=== PATIENT | female | born 1955 | race Caucasian/White ===

== ENCOUNTER 2020-10-24 14:52 | Outpatient (REF) | payer MEDICARE, MEDICAID, SELFPAY ==
--- NOTE | ~2020-10-24 | XR_ITS ---
EXAMINATION: XR HIP, RIGHT CLINICAL INFORMATION: Pain COMPARISON: None TECHNIQUE: Two views of the right hip and one view of the pelvis. FINDINGS: There is bilateral hip arthritis with joint space narrowing and osteophyte formation. No fracture, dislocation or bone lesion is seen. Bones of the pelvis are unremarkable. There are degenerative changes of the visualized lower lumbar spine. There is a large amount of stool the colon suggestive of constipation. There is a dense calcification in the midline pelvis measuring 2.8 cm probably representing a calcified fibroid. XR/XR hip RT min 2V IMPRESSION: Bilateral hip arthritis. Constipation.
== END 2020-10-24 14:53 | disposition home or self-care (01) ==
LOC: HO.XRAY 14:52
PROVIDERS: PCP Internal Medicine; Visit Provider Internal Medicine
DX: M25.551 Pain in right hip (principal)
CPT/HCPCS: 73502

== ENCOUNTER → 2020-11-14 10:22 | Outpatient (BNVA) | payer MEDICARE, MEDICAID, SELFPAY | PROVIDERS: PCP Internal Medicine; Visit Provider Nurse Practitioner | DX: K21.9 Gastro-esophageal reflux disease without esophagitis (principal); D12.6 Benign neoplasm of colon, unspecified | CPT/HCPCS: Q3014 ==

== ENCOUNTER → 2021-02-22 12:53 | Outpatient (BNVA) | payer MEDICARE, MEDICAID, SELFPAY | PROVIDERS: PCP Internal Medicine | DX: N39.41 Urge incontinence (principal); R35.0 Frequency of micturition; R62.50 Unspecified lack of expected normal physiological development in childhood; F41.9 Anxiety disorder, unspecified | CPT/HCPCS: 99202; 99212 ==

== ENCOUNTER 2021-03-21 08:40 | Outpatient (REF) | payer MEDICARE, MEDICAID, SELFPAY | END 2021-03-21 08:41 | disposition home or self-care (01) | LOC: HO.LAB 08:40 | PROVIDERS: PCP Internal Medicine; Visit Provider Internal Medicine | DX: Z20.822 Contact with and (suspected) exposure to COVID-19 (principal) | CPT/HCPCS: U0003; U0005 ==

== ENCOUNTER → 2021-04-02 11:27 | Outpatient (REF) | payer MEDICARE, MEDICAID, SELFPAY ==
--- NOTE | 2021-04-02 11:36 | ECG_ITS ---
Test Reason : Z01.818 - Encounter for other preprocedural examination Blood Pressure : / mmHG Vent. Rate : 060 BPM Atrial Rate : 060 BPM P-R Int : 252 ms QRS Dur : 088 ms QT Int : 482 ms P-R-T Axes : 095 018 056 degrees QTc Int : 482 ms Atrial-paced rhythm with prolonged AV conduction Abnormal ECG When compared with ECG of 28-NOV-2018 22:27, Electronic atrial pacemaker has replaced Sinus rhythm Vent. rate has increased BY 22 BPM Referred By: Angela Godinez Electronically Signed By:Dash Silva
[2021-04-02 13:17] LABS: MANUAL DIFF FLAG NO
[2021-04-02 13:22] LABS: Basophils Percent Auto 0.6 % (0-2); Eosinophils Absolute Auto 0.1 X10*3/uL (0.0-0.4); Hematocrit 41.7 % (37-47); Hemoglobin 13.2 g/dl (12.0-16.0); Imm Gran Abs Auto 0.03 X10*3/uL (0.00-0.03); Imm Gran Pct Auto 0.4 % (0.0-0.4); Lymphocytes Percent Auto 27.5 % (20-40); Mean Corpuscular HGB Conc 31.7 g/dl (31.0-35.0); Mean Corpuscular Hemoglobin 30.1 pg (27.0-33.0); Mean Platelet Volume 10.8 fL (9.4-12.3); Monocytes Absolute Auto 0.6 X10*3/uL (0.1-1.2); Neutrophils Absolute Auto 4.5 X10*3/uL (2.0-8.3); Neutrophils Percent Auto 62.5 % (45-73); Platelet Count 175 X10*3/uL (160-400); Red Blood Count 4.39 X10*6/uL (4.20-5.50); Red Cell Distribution Width 13.1 % (11.0-16.0); White Blood Count 7.1 X10*3/uL (4.8-10.8)
[2021-04-02 14:06] LABS: Free T4 (Free Thyroxine) 1.01 ng/dL (0.71-1.85); Vitamin D 25-OH Total 32.5 ng/mL (>30)
[2021-04-02 14:07] LABS: Thyroid Stimulating Hormone 2.55 uIU/mL (0.32-4.0)
[2021-04-02 14:08] LABS: Alanine Aminotransferase 17 U/L (0-31); Albumin Level 4.3 g/dL (3.5-5.0); Alkaline Phosphatase 64 U/L (39-117); Anion Gap 11 (12-20); Aspartate Amino Transferase 28 U/L (5-31); Bilirubin Total 0.3 mg/dL (0.0-1.0); Blood Urea Nitrogen 20 mg/dL (9-16); Calcium 9.8 mg/dL (8.4-10.2); Carbon Dioxide 30 mmol/L (22-29); Chloride 103 mmol/L (96-108); Estimated Glomerular Filt Rate > 60; Glucose Random 52 mg/dL (60-115); Potassium 4.6 mmol/L (3.3-5.1); Sodium 139 mmol/L (135-145); Total Protein 7.2 g/dL (6.5-8.0)
[2021-04-02 14:29] LABS: Folate 8.1 ng/mL (> or = 4.0); Vitamin B12 445 pg/mL (200-900)
== END ==
LOC: HO.CARD 11:27
PROVIDERS: PCP Internal Medicine; Visit Provider Internal Medicine
DX: Z01.818 Encounter for other preprocedural examination (principal); Z20.822 Contact with and (suspected) exposure to COVID-19; I95.1 Orthostatic hypotension
CPT/HCPCS: 36415; 80053; 82306; 82607; 82746; 84439; 84443; 85025; 93005; U0003; U0005

== ENCOUNTER 2021-05-04 07:34 | Day surgery (SDC) | payer MEDICARE, MEDICAID, SELFPAY ==
[2021-04-30 10:29] VITALS: BMI 32.1
--- NOTE | 2021-05-03 12:03 | P.CONAN_ITS ---
Documented by User: Jody Leonard NP 05/03/21 12:06 HPI - Anesthesia Eval Consult details Narrative: 65yo F for Colonoscopy Medically cleared Pacer in situ - 2019 talia [facility] Active Problems Active Problems: All Active Problems (Updated 04/30/21 @ 10:31 by Radha Laguerre, JACLNY) Breast mass, right (Acute) Orthostasis (Acute) Cataract, left eye (Acute) Hip pain, right (Acute) Tubular adenoma of colon (Acute) Eye disorder (Acute) Increased frequency of urination (Acute) Incontinence (Acute) Urge incontinence (Acute) Preop exam for internal medicine (Acute) GERD (gastroesophageal reflux disease) (Acute) Impulse control disorder (Acute) Obesity (BMI 35.0-39.9 without comorbidity) (Acute) Past Medical History Medical History Amblyopia of left eye Anxiety Cholelithiasis COVID-19 vaccine series completed COVID-19 virus infection Fibroids GERD (gastroesophageal reflux disease) Impulse control disorder Obesity (BMI 35.0-39.9 without comorbidity) Preop exam for internal medicine Retinal detachment of left eye due to tear of retina Seizure disorder Family History Family History Father Cancer Mother CAD (coronary artery disease) Sister In good health Brother In good health Surgical History Surgical History History of cataract surgery History of pacemaker S/P breast biopsy, right Social History Social History Household Members Other:: HALFWAY Housing: Other Housing Other:: Senior Care Alcohol intake: never Patient Tobacco Use Status: Never used Tobacco e-Cigarette/Vaping Use: Never Used Second Hand Smoke Exposure: No Advance Directives: Yes Advance Directives on File: Yes Advance Directives Date on File: 05/04/21 service: No Current occupational status: disabled Meds Allergies Allergy/AdvReac Type Severity Reaction Status Date / Time No Known Allergies Allergy Verified 04/02/21 10:24 [No Known Allergies*] Home Medications Medication Instructions Recorded Confirmed Last Taken Type acetaminophen 325 mg tablet 650 mg PO Q6H PRN 07/31/20 12/18/20 Unknown History (Tylenol) bacitracin 500 unit/gram topical 1 appl TOPICAL DAILY 07/31/20 12/18/20 Unknown History ointment benztropine 0.5 mg tablet 0.5 mg PO DAILY 07/31/20 12/18/20 Unknown History ibuprofen 200 mg capsule 200 mg PO Q6H PRN 07/31/20 12/18/20 Unknown History midodrine 10 mg tablet 10 mg PO BID tab 07/31/20 12/18/20 Unknown History risperidone 1 mg tablet 1 mg PO BEDTIME 12/06/20 12/18/20 Unknown History atropine 1 % eye drops 1 drp OPHTHALMIC (EYE) ml 02/22/21 Unknown History moxifloxacin 0.5 % eye drops 1 drp OPHTHALMIC (EYE) ml 02/22/21 Unknown History omeprazole 20 mg capsule,delayed 20 mg PO DAILY 02/22/21 Unknown History release Exam Exam Date and Time: May 03, 2021 1203 Height,Weight and Vital Signs: Height 5 ft 6 in Weight 90.265 kg Pertinent Lab Results Pertinent Lab Results: Laboratory Tests 04/02/21 04/02/21 11:40 11:40 WBC 7.1 Hgb 13.2 Hct 41.7 Plt Count 175 Sodium 139 Potassium 4.6 Chloride 103 Carbon Dioxide 30 H BUN 20 H Creatinine 0.89 Narrative Narrative: EKG 04/2021 Vent. Rate : 060 BPM ? ? Atrial Rate : 060 BPM ?? P-R Int : 252 ms? QRS Dur : 088 ms ? ? QT Int : 482 ms ? ? ? P-R-T Axes : 095 018 056 degrees ?? QTc Int : 482 ms ? Atrial-paced rhythm with prolonged AV conduction Abnormal ECG When compared with ECG of 28-NOV-2018 22:27, Electronic atrial pacemaker has replaced Sinus rhythm Vent. rate has increased BY? 22 BPM Assessment and Plan Assessment Anesthesia Assessment: Chart Reviewed Documented by User: Analia Perez MD 05/04/21 08:13 [facility] Past Medical History Medical History Amblyopia of left eye Anxiety Cholelithiasis COVID-19 vaccine series completed COVID-19 virus infection Fibroids GERD (gastroesophageal reflux disease) Impulse control disorder Obesity (BMI 35.0-39.9 without comorbidity) Preop exam for internal medicine Retinal detachment of left eye due to tear of retina Seizure disorder Family History Family History Father Cancer Mother CAD (coronary artery disease) Sister In good health Brother In good health Surgical History Surgical History History of cataract surgery History of pacemaker S/P breast biopsy, right Social History Social History Household Members Other:: [employer] Housing: Other Housing Other:: Senior Care Alcohol intake: never Patient Tobacco Use Status: Never used Tobacco e-Cigarette/Vaping Use: Never Used Second Hand Smoke Exposure: No Advance Directives: Yes Advance Directives on File: Yes Advance Directives Date on File: 05/04/21 service: No Current occupational status: disabled Meds Allergies Allergy/AdvReac Type Severity Reaction Status Date / Time No Known Allergies Allergy Verified 04/02/21 10:24 [No Known Allergies*] Home Medications Medication Instructions Recorded Confirmed Last Taken Type acetaminophen 325 mg tablet 650 mg PO Q6H PRN 07/31/20 12/18/20 Unknown History (Tylenol) bacitracin 500 unit/gram topical 1 appl TOPICAL DAILY 07/31/20 12/18/20 Unknown History ointment benztropine 0.5 mg tablet 0.5 mg PO DAILY 07/31/20 12/18/20 Unknown History ibuprofen 200 mg capsule 200 mg PO Q6H PRN 07/31/20 12/18/20 Unknown History midodrine 10 mg tablet 10 mg PO BID tab 07/31/20 12/18/20 Unknown History risperidone 1 mg tablet 1 mg PO BEDTIME 12/06/20 12/18/20 Unknown History atropine 1 % eye drops 1 drp OPHTHALMIC (EYE) ml 02/22/21 Unknown History moxifloxacin 0.5 % eye drops 1 drp OPHTHALMIC (EYE) ml 02/22/21 Unknown History omeprazole 20 mg capsule,delayed 20 mg PO DAILY 02/22/21 Unknown History release Exam Airway Mallampati Class: III TM Dist: >3cm Neck ROM: Full
[2021-05-04 08:09] VITALS: BP 134/67; PULSE 60; RESP 18; TEMP 37.2; O2SAT 98
--- NOTE | 2021-05-04 08:30 | P.HPSUR_ITS ---
Pre-Procedural Eval Section A Date of Service: 05/04/21 The patient is an INPATIENT: No The History & Physical has been completed within 30 days and I have reviewed it.: No Section B Chief Complaint: Colon cancer screening, history of colon polyps Details of Present Illness: Colon cancer screening, history of colon polyps Relevant Family History (Specify if Yes): No Relevant Social History: None Present Medications: see Short Stay Collaborative assessment Medical History: Significant History (Amblyopia of left eye Anxiety Alejandra lithiasis Fibroids GERD (gastroesophageal reflux disease) Impulse control disorder Obesity (BMI 35.0-39.9 without comorbidity) Retinal detachment of left eye due to tear of retina Seizure disorder) History of Previous Operations: Relevant previous surgery/procedure and date(s) (History of cataract surgery History of pacemaker S/P breast biopsy, right) Allergies: Allergies Allergy/AdvReac Type Severity Reaction Status Date / Time No Known Allergies Allergy Verified 04/02/21 10:24 [No Known Allergies*] Review of Systems Sugical H&P ROS: Negative: Constitution, Cardiovascular, Respiratory and Gastrointestinal Exam Surgical H&P Exam: Normal: Heart, Normal: Lungs, Normal: Extremities and Normal: Abdomen Plan Diagnosis/Plan: Unchanged I have reviewed the history and physical and performed a pertinent physical examination on my patient. No changes have occurred unless specified.
[2021-05-04] MEDS: Lactated Ringers 1,000 ML 100 ML IVCONT (08:36)
--- NOTE | 2021-05-04 08:36 | P.OP_ITS ---
Operative Note Operative Note Date of Service: 05/04/21 Narrative: Pre-op diagnosis:?Colon cancer screening, history of colon polyps Post-op diagnosis:?other (Colon polyps, diverticulosis) Procedure:? COLONOSCOPY TILL CECUM WITH BIOPSY, SNARE POLYPECTOMY AND SUBMUCOSAL INJECTION Consent: Indications for the procedure and potential complications of bleeding, perforation, reaction to medications and missed diagnosis were discussed with the patient's brother and HCP, Miguel Stewart ([phone]) over the telephone and informed verbal consent was obtained. Instrument: Olympus CF HQ 190 L variable stiffness adult colonoscope Monitoring: Vital signs and clinical assessment, intermittent blood pressure monitoring, continuous EKG monitoring, Pulse oximetry and Carbon Dioxide monitoring were done throughout the procedure. Colon withdrawl time was 28 minutes. Procedure: The patient was placed in the left lateral decubitis position and pre-procedure medications were administered. After a digital rectal examination of the ano-rectum, the video colonoscope was inserted into the rectum and advanced through the colon to the cecum. The colonoscope was slowly withdrawn in a retrograde panoramic fashion and the colon mucosa was carefully examined including a retroflexed view of the rectum. Findings and interventions are described below. Procedure Difficulty:? Colon was long and tortuous and there was some loop formation. ? LLQ pressure applied to intubate the transverse colon/cecum Findings: Terminal Ileum: Not evaluated Cecum:? A 1.5 cms flat polyp raised with 2 cc of Orise solution (submucosal injection) and removed with a hot snare.? ? Polyp versus fold at the lip of ICV raised with Orise and biopsies were obtained. Ascending Colon:? Normal Transverse Colon:? Normal Descending Colon:? Moderate diverticulosis Sigmoid Colon:? Moderate diverticulosis Rectum:? Normal Ano-rectum:? Normal Colon preparation: Good after some irrigation Impression and Post Procedure Diagnosis: Colonoscopy Findings: One polyp removed Moderate diverticulosis seen in the left colon Plan: Await pathology results Patient has an appointment on 05/17/21 in the GI Clinic with? Kaykay Aguayo NP . Repeat Colonoscopy interval based on path results - in 3 years if polyps are adenomatous and 10 years if polyps are hyperplastic. Above findings were reviewed with the patient and colon polyps and diverticulosis handouts were given in the discharge area Surgeon:?Devan Waters MD Anesthesia:?MAC (Christy Guerra CRNA) Was an Bacteriology Professor used for this Procedure?:?No Bacteriology Professor:?Mohamud Johnson Estimated blood loss (mL):?0 Pathology:?other (A- CECAL POLYP? O-RISE USED? B- ILLEOCECAL VALVE BX. ? POLYP VS FOLD ? O-RISE USED) Condition:?stable Disposition:?PACU
--- NOTE | 2021-05-04 08:40 | PC.NURSE ---
pt to sss from [facility] accompanied by [facility] care worker. pt confused on date time. knows name and birthday. consents obtained by brother berna mejia . verified pt is a full code. care worker reports pt fell in our parking lot. both knees srapped. denies loc. did not hit head. pt ana. paste plant supervisor of [facility] informed of fall in parking lot. . lana paste plant supervisor from [facility] seen pt at bedsidebefore going in
[2021-05-04 09:50] VITALS: BP 104/57; PULSE 60; RESP 16; TEMP 36.1; O2SAT 98
[2021-05-04 10:05] VITALS: BP 121/66; PULSE 60; RESP 16; O2SAT 100
[2021-05-04 10:20] VITALS: BP 128/74; PULSE 60; RESP 18; TEMP 36.3; O2SAT 100
--- NOTE | 2021-05-04 11:21 | PC.NURSE ---
agronomy supervisor Lacey at bedside, discharge instructions given to Lacey who verbalized understanding of DC plan for pt. Pt discharged back to intermediate from PACU via WC escorted by PACU staff to the [place].
== END 2021-05-04 11:20 | disposition home or self-care (01) ==
PROVIDERS: PCP Internal Medicine; Visit Provider Internal Medicine Gastroenterology
PROC: 0DJD8ZZ Inspection of Lower Intestinal Tract, Via Natural or Artificial Opening Endoscopic (ICD-10-PCS; CPT 45378; principal; 2021-05-04 08:30)
DX: Z12.11 Encounter for screening for malignant neoplasm of colon (principal); Z86.010 Personal history of colon polyps; D12.0 Benign neoplasm of cecum; K57.30 Diverticulosis of large intestine without perforation or abscess without bleeding; K63.5 Polyp of colon; K21.9 Gastro-esophageal reflux disease without esophagitis; I10 Essential (primary) hypertension; G40.909 Epilepsy, unspecified, not intractable, without status epilepticus; R00.1 Bradycardia, unspecified; F63.9 Impulse disorder, unspecified; E66.9 Obesity, unspecified; Z79.899 Other long term (current) drug therapy
CPT/HCPCS: 45385; 45380; 45381; 88305

== ENCOUNTER → 2021-05-21 16:03 | Outpatient (BNVA) | payer MEDICARE, MEDICAID, SELFPAY | PROVIDERS: PCP Internal Medicine; Visit Provider Nurse Practitioner | DX: K21.9 Gastro-esophageal reflux disease without esophagitis (principal); D12.6 Benign neoplasm of colon, unspecified | CPT/HCPCS: 99212 ==

== ENCOUNTER → 2021-05-29 13:30 | Outpatient (BNVA) | payer MEDICARE, MEDICAID, SELFPAY | PROVIDERS: PCP Internal Medicine | DX: R35.0 Frequency of micturition (principal); R32 Unspecified urinary incontinence | CPT/HCPCS: 51798; 99212 ==

== ENCOUNTER 2021-12-26 09:32 | Outpatient (REF) | payer MEDICARE, MEDICAID, SELFPAY ==
[2021-12-26 11:33] LABS: MANUAL DIFF FLAG NO
[2021-12-26 11:45] LABS: Basophils Percent Auto 0.5 % (0-2); Eosinophils Absolute Auto 0.1 X10*3/uL (0.0-0.4); Eosinophils Percent Auto 0.9 % (0-4); Hematocrit 41.8 % (37.0-47.0); Hemoglobin 13.1 g/dl (12.0-16.0); Imm Gran Abs Auto 0.03 X10*3/uL (0.00-0.03); Imm Gran Pct Auto 0.4 % (0.0-0.4); Lymphocytes Absolute Auto 2.3 X10*3/uL (1.2-4.9); Lymphocytes Percent Auto 27.9 % (20-40); Mean Corpuscular HGB Conc 31.3 g/dl (31.0-35.0); Mean Corpuscular Hemoglobin 29.9 pg (27.0-33.0); Mean Corpuscular Volume 95.4 fL (80.0-98.0); Mean Platelet Volume 10.4 fL (9.4-12.3); Monocytes Absolute Auto 0.6 X10*3/uL (0.1-1.2); Monocytes Percent Auto 7.3 % (2-11); Neutrophils Absolute Auto 5.2 x10*3/uL (2.0-8.3); Platelet Count 192 X10*3/uL (160-400); Red Blood Count 4.38 X10*6/uL (4.20-5.50); Red Cell Distribution Width 12.9 % (11.0-16.0); White Blood Count 8.2 X10*3/uL (4.8-10.8)
[2021-12-26 12:14] LABS: Free T4 (Free Thyroxine) 0.96 ng/dL (0.71-1.85); Thyroid Stimulating Hormone 4.17 uIU/mL (0.32-4.0); Vitamin D 25-OH Total 30.1 ng/mL (>30)
[2021-12-26 12:18] LABS: Alanine Aminotransferase 16 U/L (0-31); Albumin Level 3.9 g/dL (3.5-5.0); Alkaline Phosphatase 53 U/L (39-117); Anion Gap 13 (12-20); Aspartate Amino Transferase 27 U/L (5-31); Bilirubin Total 0.4 mg/dL (0.0-1.0); Blood Urea Nitrogen 21 mg/dL (9-16); Calcium 9.9 mg/dL (8.4-10.2); Carbon Dioxide 28 mmol/L (22-29); Chloride 103 mmol/L (96-108); Cholesterol 202 mg/dL; Estimated Glomerular Filt Rate 58; Glucose Random 74 mg/dL (60-115); HBc Num1 0.13 S/CO (0.00-0.79); HBsAGNum1 0.22 S/CO (0.00-0.99); HDL Cholesterol 51 mg/dL; Hepatitis B Core Antibody Nonreactive (Nonreactive); Hepatitis B Surface Antigen Negative (Negative); LDL Cholesterol Calculated 127 mg/dl; Potassium 4.3 mmol/L (3.3-5.1); Sodium 140 mmol/L (135-145); Triglycerides 122 mg/dL; ~HepC Num1 0.08 S/CO (0.00-0.79); ~Hepatitis B Surface Antibody NONREACTIVE (Nonreactive); ~Hepatitis C Antibody Nonreactive (Nonreactive)
[2021-12-26 13:18] LABS: Folate 8.4 ng/mL (> or = 4.0); Vitamin B12 364 pg/mL (200-900)
[2021-12-26 14:25] LABS: Appearance Urine CLEAR; Color Urine YELLOW; Glucose Urine UA NEG (NEG); Leukocyte Esterase Urine NEG (NEG); Nitrite Urine NEG (NEG); Specific Gravity - Urine 1.015 (1.005-1.025); Urine Blood NEG (NEG); Urine Ketones NEG (NEG); Urine Protein NEG (NEG-TRACE)
[2021-12-26 14:53] LABS: Renal Epithelial Cells Urine TRACE /LPF; Squamous Epithelial Cell Urine 1+ /LPF
[2021-12-26 14:54] LABS: RBC Urine 0-2 /HPF (0); WBC Urine 0-2 /HPF (0-4)
[2021-12-28 19:16] LABS: TS Negative Control Passed; TS Panel A 0; TS Panel B 0; TS Positive Control Passed; TSpotTB Negative (Negative)
== END 2021-12-26 09:33 | disposition home or self-care (01) ==
LOC: HO.HMGCLDS 09:32
PROVIDERS: PCP Internal Medicine; Visit Provider Internal Medicine
DX: Z00.00 Encounter for general adult medical examination without abnormal findings (principal); E78.00 Pure hypercholesterolemia, unspecified; R79.89 Other specified abnormal findings of blood chemistry; E66.9 Obesity, unspecified; I95.1 Orthostatic hypotension
CPT/HCPCS: 36415; 80053; 80061; 81001; 82306; 82607; 82746; 84439; 84443; 85025; 86481; 86704; 86706; 86803; 87340

== ENCOUNTER 2022-02-14 09:18 | Outpatient (REF) | payer MEDICARE, MEDICAID, SELFPAY ==
[2022-02-14 10:48] LABS: Free T4 (Free Thyroxine) 0.98 ng/dL (0.71-1.85); Thyroid Stimulating Hormone 3.14 uIU/mL (0.32-4.0)
== END 2022-02-14 09:19 | disposition home or self-care (01) ==
LOC: HO.LAB 09:18
PROVIDERS: PCP Internal Medicine; Visit Provider Internal Medicine
DX: R94.6 Abnormal results of thyroid function studies (principal)
CPT/HCPCS: 36415; 84439; 84443

== ENCOUNTER → 2022-04-09 08:57 | Outpatient (BNVA) | payer MEDICARE, MEDICAID, SELFPAY | PROVIDERS: PCP Internal Medicine; Visit Provider Psychiatry & Neurology Neurology | DX: R41.89 Other symptoms and signs involving cognitive functions and awareness (principal); R46.89 Other symptoms and signs involving appearance and behavior; R26.81 Unsteadiness on feet; R41.3 Other amnesia; G40.909 Epilepsy, unspecified, not intractable, without status epilepticus; Z79.899 Other long term (current) drug therapy | CPT/HCPCS: 99202 ==

== ENCOUNTER 2022-04-25 09:38 | Outpatient (REF) | payer MEDICARE, MEDICAID, SELFPAY ==
--- NOTE | ~2022-04-25 | CT_ITS ---
EXAMINATION: CT HEAD WITHOUT CONTRAST CLINICAL INFORMATION: Abnormal cognitive functions and awareness. COMPARISON: None TECHNIQUE: Contiguous axial imaging was performed from the skull base to vertex without intravenous administration of contrast. This CT examination was performed using dose optimization techniques as appropriate, variously including the following: *Automated exposure control. *Adjustment of mA and/or kV according to patient size (this includes techniques or standardized protocols for targeted exams where dose is matched to indication/reason for exam; i.e. extremities or head). *Use of iterative reconstruction technique. DLP: 914 mGy-cm FINDINGS: There is no acute intra-axial, extra-axial bleed, masses, collection or midline shift. The [id number] matter differentiation is maintained normal. There are lacunar infarctions in both basal ganglia slightly larger on the right. There is diffuse periventrical hypodensities in both cerebral hemispheres. Moderate elevation of lateral ventricles and mild prominence of cortical sulci is noted. Bone windows reveal no calvarial abnormality. Bilateral paranasal sinuses and mastoid air cells are well aerated with mild mucoperiosteal thickening floor of left maxillary sinus. There is a hyperdense small left eyeball likely nonfunctioning with mild proptosis. CT/CT head/brain wo con IMPRESSION: 1. No acute intracranial process seen. 2. There is bibasal ganglia lacunar infarct slightly greater on the right side. Mild cerebral volume loss with chronic small vessel ischemic changes.
== END 2022-04-25 09:39 | disposition home or self-care (01) ==
LOC: HO.CT 09:38
PROVIDERS: PCP Internal Medicine; Visit Provider Psychiatry & Neurology Neurology
DX: R26.81 Unsteadiness on feet (principal); R41.89 Other symptoms and signs involving cognitive functions and awareness; R46.89 Other symptoms and signs involving appearance and behavior
CPT/HCPCS: 70450

== ENCOUNTER 2022-07-04 09:21 | Outpatient (REF) | payer MEDICARE, MEDICAID, SELFPAY ==
--- NOTE | ~2022-07-04 | MM_ITS ---
EXAMINATION: BONE DENSITOMETRY CLINICAL INDICATION: Age-related osteoporosis without current pathological fracture. COMPARISON: Previous BD dated 01/11/2014 and baseline BD dated 07/30/2007. TECHNIQUE: Using a Active[employer]k DXA System (software version: 13.1) manufactured by [employer], dual-energy x-ray absorptiometry was performed of the lumbar spine and left hip. The images are of good technical quality. Summary results are attached. FINDINGS: AP SPINE L2-L4 (L3) (excluding L1 and L3): The data of L1-L4 has been changed to exclude the L1 and L3 vertebral bodies, because degenerative changes at these levels may cause overestimation of lumbar spine density. Current: BMD 1.275 g/cm2, Z-score 1.4, T-score 0.6, normal, 1.4% increase from previous, 1.5% increase from baseline (<5% change is not significant). Prior: BMD 1.257 g/cm2. Baseline: BMD 1.256 g/cm2. LEFT FEMUR, NECK: Current: BMD 0.776 g/cm2, Z-score -0.9, T-score -1.9, osteopenia. Prior: BMD 0.998 g/cm2. Baseline: BMD 0.934 g/cm2. LEFT FEMUR, TOTAL: Current: BMD 0.721 g/cm2, Z-score -1.6, T-score -2.3, osteopenia, 25.1% decrease from previous, 26.5% decrease from baseline (<5% change is not significant). Prior: BMD 0.962 g/cm2. Baseline: BMD 0.981 g/cm2. IDENTIFIED RISK FACTORS: Dementia, menopause. HISTORY OF FRACTURE: None listed. MEDICATIONS: Calcium supplements or multivitamin, vitamin D. MM/XR DEXA axial skeleton IMPRESSION: 1. DIAGNOSIS: Osteopenia based on the lowest T-score value of -2.3 in the total femur applying World Health Organization criteria. 2. 10-YEAR FRACTURE RISK PREDICTION, FRAX: Major osteoporotic fracture (clinical spine, forearm, hip or shoulder) 10.2%. Hip fracture 1.5%. 3. Treatment Recommendations: NOF guidelines recommend consideration for treatment in postmenopausal women and men age 50 and older presenting with the following: -A hip or vertebral (clinical or morphometric) fracture. -T-score less than or equal to -2.5 at the femoral neck or spine after appropriate evaluation to exclude secondary causes. -Low bone mass at the hip or spine and a 10-year fracture probability by FRAX of greater than or equal to 3% for hip fracture or greater than or equal to 20% for major osteoporotic fracture based on the [place] adapted WHO algorithm. 4. Other Recommendations: All treatment decisions require clinical judgment and consideration of individual patient factors, including patient preferences, comorbidities, previous drug use, risk factors not captured in the FRAX model (e.g. frailty, falls, vitamin D deficiency, increased bone turnover, interval significant decline in bone density) and possible under or overestimation of fracture risk by FRAX. Additional medical evaluation for secondary cause of low bone mineral density may be appropriate. FUTURE SCAN RECOMMENDATION: People with diagnosed cases of osteoporosis or at high risk for fracture should have regular bone mineral density tests. For patients eligible for Medicare, routine testing is allowed once every 2 years. The testing frequency can be increased to one year for patients who have rapidly progressing disease, those who are receiving or discontinuing medical therapy to restore bone mass, or have additional risk factors.
== END 2022-07-04 09:22 | disposition home or self-care (01) ==
LOC: HO.MAMMO 09:21
PROVIDERS: PCP Internal Medicine; Visit Provider Internal Medicine
DX: M81.0 Age-related osteoporosis without current pathological fracture (principal)
CPT/HCPCS: 77080

== ENCOUNTER → 2022-07-09 09:43 | Outpatient (BNVA) | payer MEDICARE, MEDICAID, SELFPAY | PROVIDERS: PCP Internal Medicine; Visit Provider Psychiatry & Neurology Neurology | DX: R41.89 Other symptoms and signs involving cognitive functions and awareness (principal); R46.89 Other symptoms and signs involving appearance and behavior; R26.81 Unsteadiness on feet | CPT/HCPCS: 99212 ==

== ENCOUNTER 2022-07-23 10:37 | Outpatient (REF) | payer MEDICARE, MEDICAID, SELFPAY ==
--- NOTE | ~2022-07-23 | US_ITS ---
EXAMINATION: US EXTRACRANIAL CAROTID DUPLEX, BILATERAL CLINICAL INFORMATION: Stroke, cerebral infarction COMPARISON: None TECHNIQUE: Real-time ultrasound and Doppler techniques (integrating B-mode 2-D vascular images, Doppler spectral analysis and color-flow Doppler imaging) were utilized to interrogate the extracranial carotid arteries, the vertebral arteries and proximal subclavian arteries bilaterally. The degree of stenosis is determined by criteria similar to NASCET. FINDINGS: Right Side: 1. There is mild atherosclerotic plaque seen in the bifurcation/proximal ICA region. 2. The common carotid artery PSV proximally is 75 cm/s and distally 63 cm/s. 3. The proximal internal carotid artery velocities are 89 cm/s systolic and 10 cm/s diastolic. 4. The proximal external carotid artery PSV is 56 cm/s. 5. The vertebral artery shows antegrade flow. 6. The subclavian artery waveforms are normal. Left Side: 1. There is mild atherosclerotic plaque seen in the bifurcation/proximal ICA region. 2. The common carotid artery PSV proximally is 85 cm/s and distally 81 cm/s. 3. The proximal internal carotid artery velocities are 65 cm/s systolic and 17 cm/s diastolic. 4. The proximal external carotid artery PSV is 152 cm/s. 5. The vertebral artery shows antegrade flow. 6. The subclavian artery waveforms are normal. US/US carotid duplex BI IMPRESSION: 1. RIGHT: Minimal, non-hemodynamically significant stenosis of the proximal right internal carotid artery corresponding to a 0-49% stenosis by velocity criteria. 2. LEFT: Minimal, non-hemodynamically significant stenosis of the proximal left internal carotid artery corresponding to a 0-49% stenosis by velocity criteria.
== END 2022-07-23 10:38 | disposition home or self-care (01) ==
LOC: HO.US 10:37
PROVIDERS: Visit Provider Internal Medicine
DX: Z86.73 Personal history of transient ischemic attack (TIA), and cerebral infarction without residual deficits (principal)
CPT/HCPCS: 93880

== ENCOUNTER → 2022-09-17 09:09 | Outpatient (BNVA) | payer MEDICARE, MEDICAID, SELFPAY | PROVIDERS: PCP Internal Medicine; Visit Provider Nurse Practitioner Family | DX: N39.41 Urge incontinence (principal); R33.9 Retention of urine, unspecified | CPT/HCPCS: 51798; 99212 ==

== ENCOUNTER → 2022-12-17 09:43 | Outpatient (BNVA) | payer MEDICARE, MEDICAID, SELFPAY | PROVIDERS: PCP Internal Medicine; Visit Provider Nurse Practitioner Family | DX: R33.9 Retention of urine, unspecified (principal); N39.41 Urge incontinence | CPT/HCPCS: 51798; 99212 ==

== ENCOUNTER → 2023-01-07 09:24 | Outpatient (BNVA) | payer MEDICARE, MEDICAID, SELFPAY | PROVIDERS: PCP Internal Medicine; Visit Provider Psychiatry & Neurology Neurology | DX: R41.89 Other symptoms and signs involving cognitive functions and awareness (principal); R46.89 Other symptoms and signs involving appearance and behavior; R26.81 Unsteadiness on feet | CPT/HCPCS: 99212 ==

== ENCOUNTER 2023-04-15 10:11 | Outpatient (AMB) | payer MEDICARE, MEDICAID, SELFPAY ==
[2023-04-15 10:17] VITALS: BP 124/78; PULSE 68; O2SAT 97; BMI 37.9
--- NOTE | 2023-04-15 10:18 | AM.OFFVISMDC ---
Intake Vital Signs 04/15/23 10:17 Height 5 ft 6 in Weight 235 lb BMI 37.9 BP 124/78 Blood Pressure Location Lt brachial Position Sitting Pulse 68 Pulse Source Pulse Oximeter Pulse Oximetry (%) 97 Oxygen Delivery Method Room Air Intake Visit Reasons: AWV Allergies No Known Allergies [No Known Allergies*] Allergy (Verified 04/15/23 10:18) Medication List - Last Reconciled 04/15/23 by Angela Godinez MD acetaminophen (Tylenol) 650 mg (2 x 325 mg) PO Q6H PRN aspirin (Adult Low Dose Aspirin) 81 mg PO DAILY atropine 1% 1 drp ophthalmic (eye) bacitracin 1 appl topical DAILY benztropine 0.5 mg PO DAILY calcium carbonate-vitamin D3 600 mg-10 mcg (400 unit) 1 tab PO BID diaper,brief,adult,disposable (Briefs, Adult-Extra Large) As directed docusate sodium 100 mg PO QAM 90 days fluoxetine (Prozac) 80 mg (2 x 40 mg) PO DAILY guaifenesin ER 600 mg PO Q12H PRN latanoprost 0.005% 0 drps ophthalmic (eye) memantine (Namenda) 10 mg PO BID midodrine 10 mg orally; do not give last dose of day after 6PM or within 4 hrs of bedtime 10 MG in the AM and 5 MG in the PM midodrine 5 mg PO DAILY mirabegron ER (Myrbetriq) 25 mg PO DAILY 90 days nystatin 1 appl topical TID nystatin (Nyamyc) 1 appl topical TID omeprazole 20 mg PO DAILY pyridoxine (vitamin B6) 50 mg PO QAM risperidone 1 mg PO BEDTIME [Transport wheelchair As directed] [Walker with seat As directed] HPI AWV HPI Details 67-year-old obese female with mental and behavioral problem history of CVA GERD impulse control disorder and incomplete bladder emptying coming in for annual well visit. Patient was last seen in December 2022. Colonoscopy is up-to-date May 2021 mammogram due bone density up-to-date. Review of the notes has seen Neurology on Namenda question of dementia on Namenda 10 mg twice a day PFSH Medical History Amblyopia of left eye Anxiety Breast mass, right Cholelithiasis COVID-19 vaccine series completed COVID-19 virus infection Fibroids GERD (gastroesophageal reflux disease) Impulse control disorder Incontinence Increased frequency of urination Intellectual delay Obesity (BMI 35.0-39.9 without comorbidity) Preop exam for internal medicine Rash Retinal detachment of left eye due to tear of retina Screening for osteoporosis Seizure disorder TSH elevation Surgical History History of cataract surgery History of pacemaker Hx of colonoscopy S/P breast biopsy, right Family History Father Cancer Mother CAD (coronary artery disease) Sister In good health Brother In good health Social History Household Members Other:: SENIOR CARE Housing: Other Housing Other:: Longterm Alcohol intake: never Patient Tobacco Use Status: Never used Tobacco e-Cigarette/Vaping Use: Never Used Second Hand Smoke Exposure: No Advance Directives Date on File: 05/04/21 service: No Current occupational status: disabled Cognitive needs: Yes Hearing needs: No Vision needs: Yes Questionnaire Medicare Wellness Checkup [age] 65-68 What gender do you identify with?: female During the past 4 weeks, how much have you been bothered by emotional problems such as feeling anxious, depressed, irritable, sad or downhearted, and blue?: moderately During the past 4 weeks, has your physical & emotional health limited your social activities with family, friends, neighbors, or groups?: slightly During the past 4 weeks, how much bodily pain have you generally had?: no pain During the past 4 weeks, was someone available to help you if you needed & wanted help?: yes, as much as I wanted During the past 4 weeks, what was the hardest physical activity you could do for at least 2 minutes?: very light Can you get to places out of walking distance without help? (For eg., can you travel alone on buses, taxis or drive your car?): No Can you go shopping for groceries or clothes without someone's help?: No Can you prepare your own meals?: No Can you do your housework without help?: No Because of any health problems, do you need the help of another person with your personal care needs such as eating, bathing, dressing or getting around the house?: Yes Can you handle your own money without help?: No During the past 4 weeks, how would you rate your health in general?: good During the past 4 weeks how have things been going for you?: good & bad parts about equal Are you having difficulties driving your car?: not applicable, I don't use a car Do you always fasten your seat belt when you are in a car?: yes, usually During past 4 weeks, have you been bothered by the following: never: Falling or dizzy when standing up, Sexual problems?, Trouble eating well?, Teeth or denture problems? and Problems using the telephone? and sometimes: Tiredness or fatigue? Have you fallen 2 or more times in the past year?: No Are you afraid of falling?: No Are you a smoker?: no During the past 4 weeks, how many drinks of wine, beer, or other alcoholic beverages did you have?: no alcohol at all Do you exercise for about 20 minutes 3 or more times a week?: no, I usually do not exercise this much Have you been given information to help with the following?: yes: Keeping track of your medications? and no: Hazards in your house that might hurt you? How often do you have trouble taking medicines the way you have been told to take them?: I always take medicine as prescribed How confident are you that you can control & manage most of your health problems?: somewhat confident What is your race?: White PHQ-9 Over the last 2 weeks, how often have you been bothered by any of the following problems? 1. Little interest or pleasure in doing things: not at all 2. Feeling down, depressed, or hopeless: not at all 3. Trouble falling or staying asleep, or sleeping too much: not at all 4. Feeling tired or having little energy: not at all 5. Poor appetite or overeating: several days 6. Feeling bad about yourself - or that you are a failure or have let yourself or your family down: not at all 7. Trouble concentrating on things, such as reading the newspaper or watching television: several days 8. Moving or speaking so slowly that other people could have noticed. Or the opposite - being so fidgety or restless that you have been moving around a lot more than usual: not at all 9. Thoughts that you would be better off or of hurting yourself in some way: not at all Total score: 2 Source: Developed by Drs. Tung Zavala, Doroteo Harris and colleagues, with an educational dagoberto from [employer]. Thrive Questionnaire Date Thrive assessed: 12/31/22 MARK-7 AMB Questionnaire MARK-7 Date MARK - 7 assessed: 09/20/22 Source: Developed by Drs. Tung Zavala, Yamilka Posadas, Doroteo Myers and colleagues, with an educational dagoberto from [employer]. Review of Systems Const Denies poor appetite and Denies weakness Eyes Denies no additional complaints ENT Reports Normal hearing present, Denies dizziness, Denies nasal congestion, Denies tinnitus and Denies sore throat Card Denies chest pain, Denies syncope, Denies rapid heart rate and Denies dyspnea Resp Denies cough and Denies dyspnea GI Denies change in stool character, Reports constipation, Denies diarrhea, Denies nausea and Denies vomiting Denies urinary frequency, Denies difficulty voiding and Denies dysuria Neuro Reports Normal hearing present, Denies confusion, Denies dizziness, Denies syncope and Denies weakness Psych Denies confusion Physical Exam Vital Signs: Last Vital Signs Pulse 68 04/15/23 10:17 BP 124/78 04/15/23 10:17 Pulse Ox 97 04/15/23 10:17 Oxygen Delivery Method Room Air 04/15/23 10:17 BMI result Body Mass Index 37.9 Const General: No confusion Orientation/consciousness: No confusion HEENT Other: L eye does not go medially Head: Yes normocephalic Ears: external ears normal and TM's normal bilaterally Face and sinus: Yes normal facial exam Mouth: moist mucous membranes Throat: Yes tonsils normal Eyes Conjunctivae: conjunctivae normal Pupils: Equal, round and reactive pupils present and Pupil accommodation reflex normal Direct Ophthalmoscopy: normal light reflex Neck Neck: No lymphadenopathy Thyroid: Thyroid normal Chest Chest palpation & inspection: normal inspection of the chest Resp Effort & Inspection: normal respiratory effort and no audible wheezes Auscultation: clear to auscultation bilaterally, no crackles, no wheezes and lung sounds not diminished Cardio Rate: regular rate Rhythm: regular rhythm Peripheral pulses: radial pulses present and dorsalis pedis present GI Other: guaiac negative Palpation (GI): no masses Auscultation: normal bowel sounds and normoactive bowel sounds Skin General skin exam: no rashes or lesions noted Rashes: no rashes Neuro General: No confusion Cranial nerves: Yes Equal, round and reactive pupils present and Yes Normal hearing present Cognition (Neuro): normal cognition Gait exam (Neuro): Normal gait present Motor exam (neuro): 5/5 motor strength present throughout Deep tendon reflexes (DTR's): Right brachioradialis reflex intensity grade: 2+, Left brachioradialis reflex intensity grade: 2+, Right patellar reflex intensity grade: 2+ and Left patellar reflex intensity grade: 2+ Extrem General: No edema Assessment & Plan Assessment & Plan (1) Medicare annual wellness visit, subsequent: Code(s): Z00.00 - Encounter for general adult medical examination without abnormal findings (2) Cognitive and behavioral changes: Comment: ? dementia Code(s): R41.89 - Other symptoms and signs involving cognitive functions and awareness; R46.89 - Other symptoms and signs involving appearance and behavior Plan: Patient is placed on Namenda 10 mg twice a day (3) CVA (cerebral vascular accident): Comment: April 2022 There is bibasal ganglia lacunar infarct slightly greater on the right side. Mild cerebral volume loss with chronic small vessel ischemic changes. Code(s): I63.9 - Cerebral infarction, unspecified Plan: Control the cholesterol, weight, blood pressure and continue with aspirin (4) Impulse control disorder: Comment: Dr. linder Code(s): F63.9 - Impulse disorder, unspecified Plan: Continue to follow-up psychiatry (5) Obesity (BMI 35.0-39.9 without comorbidity): Code(s): E66.9 - Obesity, unspecified Plan: Diet and exercise (6) Urge incontinence: Code(s): N39.41 - Urge incontinence Plan: Patient has been placed on Myrbetriq (7) GERD (gastroesophageal reflux disease): Code(s): K21.9 - Gastro-esophageal reflux disease without esophagitis Qualifiers: Esophagitis presence: without esophagitis Qualified Code(s): K21.9 - Gastro-esophageal reflux disease without esophagitis Plan: Avoid the foods that causes that usually spicy foods, tomato products, juices, coffee, soda and foods that your sensitive to. After eating do not lie down, allow 3-4 hours before in lie down. And keep the head of bed above 30 degrees to avoid the acid from going up. Quality Reporting (2019) Depression/Bipolar (159/160/161/177) PHQ-9: Total score: 2 Coding Level of Care Code Medicare Subsequent (G0439) Diagnoses Medicare annual wellness visit, subsequent Z00.00 Cognitive and behavioral changes R41.89; R46.89 CVA (cerebral vascular accident) I63.9 Impulse control disorder F63.9 Obesity (BMI 35.0-39.9 without comorbidity) E66.9 Urge incontinence N39.41 GERD (gastroesophageal reflux disease) K21.9 Esophagitis presence: without esophagitis
== END 2023-04-15 11:11 | disposition home or self-care (01) ==
PROVIDERS: Visit Provider Internal Medicine
DX: Z00.00 Encounter for general adult medical examination without abnormal findings (principal); I63.9 Cerebral infarction, unspecified; F63.9 Impulse disorder, unspecified; K21.9 Gastro-esophageal reflux disease without esophagitis; R41.89 Other symptoms and signs involving cognitive functions and awareness; R46.89 Other symptoms and signs involving appearance and behavior; E66.9 Obesity, unspecified; N39.41 Urge incontinence
CPT/HCPCS: G0439

== ENCOUNTER 2023-06-18 09:33 | Outpatient (AMB) | payer MEDICARE, MEDICAID, SELFPAY ==
--- NOTE | 2023-06-18 09:46 | A.OFFVIS_ITS ---
Intake Intake Visit Reasons: 6m/US Intake Note: Patient is present for follow up PVR /retention Urology Medications: myrbetriq Blood Thinner: aspirin PVR: 48ml's Scrap Worker Required: No Accompanied by: MUSICAL INSTRUMENT MECHANIC Allergies No Known Allergies [No Known Allergies*] Allergy (Verified 06/18/23 21:27) Medication List - Last Reconciled 06/18/23 by MACKENZIE Clayton-BC acetaminophen (Tylenol) 650 mg (2 x 325 mg) PO Q6H PRN aspirin (Adult Low Dose Aspirin) 81 mg PO DAILY atropine 1% 1 drp ophthalmic (eye) bacitracin 1 appl topical DAILY benztropine 0.5 mg PO DAILY calcium carbonate-vitamin D3 600 mg-10 mcg (400 unit) 1 tab PO BID diaper,brief,adult,disposable (Briefs, Adult-Extra Large) As directed docusate sodium 100 mg PO QAM 90 days fluoxetine (Prozac) 80 mg (2 x 40 mg) PO DAILY guaifenesin ER 600 mg PO Q12H PRN latanoprost 0.005% 0 drps ophthalmic (eye) memantine (Namenda) 10 mg PO BID midodrine 10 mg orally; do not give last dose of day after 6PM or within 4 hrs of bedtime 10 MG in the AM and 5 MG in the PM midodrine 5 mg PO DAILY mirabegron ER (Myrbetriq) 25 mg PO DAILY 90 days nirmatrelvir-ritonavir 150-100 mg (Paxlovid) PO PER PKG DIR nirmatrelvit 150 mg with Ritonavir 100 mg BID 5 days nystatin 1 appl topical TID nystatin (Nyamyc) 1 appl topical TID omeprazole 20 mg PO DAILY pyridoxine (vitamin B6) 50 mg PO QAM risperidone 1 mg PO BEDTIME [Transport wheelchair As directed] [Walker with seat As directed] HPI HPI Comments History of Present Illness Details Nikki Menjivar is a 67 year old female patient of Dr. Godinez who lives in a long-term and is accompanied by one of the care attendants/lease administration supervisor that helps take care of her daily. She has a past medical history of intellectual delay, incontinence, fibroids, amblyobia of left eye, GERD, impulse control disorder, anxiety, and seizure disorder. The patient has a history of developmental delay as well as dementia.? Patient is being seen today to follow up on her incontinence. Patient with a history of limited speech. She answers in single words and has trouble comprehending. Thus, patient lease administration supervisor from [facility] provides much of todays history. She does report patient to be more incontinent however relates this to her slower walking. However, she does report patient does well with prompt voiding. Patient compliant with 25mg of Myrbetriq daily. In office urinalysis results reviewed with the patient and her lease administration supervisor today. PVR 48ml's. Patient and senior care provider deny any urination issues at this time.? [facility] Medical History COVID-19 virus infection Intellectual delay TSH elevation Rash Screening for osteoporosis COVID-19 vaccine series completed Incontinence Increased frequency of urination Preop exam for internal medicine Retinal detachment of left eye due to tear of retina Fibroids Amblyopia of left eye GERD (gastroesophageal reflux disease) Obesity (BMI 35.0-39.9 without comorbidity) Impulse control disorder Cholelithiasis Anxiety Seizure disorder Breast mass, right Surgical History Hx of colonoscopy History of cataract surgery History of pacemaker S/P breast biopsy, right Family History Father Cancer Mother CAD (coronary artery disease) Sister In good health Brother In good health Social History Household Members Other:: SENIOR CARE Housing: Other Housing Other:: Snf Alcohol intake: never Patient Tobacco Use Status: Never used Tobacco e-Cigarette/Vaping Use: Never Used Second Hand Smoke Exposure: No Advance Directives Date on File: 05/04/21 service: No Current occupational status: disabled Cognitive needs: Yes Hearing needs: No Vision needs: Yes Review of Systems Const Reports as per HPI Eyes Reports as per HPI ENT Reports no additional complaints Card Reports no additional complaints Resp Reports no additional complaints GI Reports as per HPI Reports as per HPI Musc Reports no additional complaints Neuro Details: Patient with cognitive delay Reports as per HPI Psych Reports as per HPI Endo Reports no additional complaints Physical Exam Const General: cooperative, comfortable, no acute distress, well developed, alert and awake Orientation/consciousness: oriented to person Limitations: ambulation with walker HEENT Head: Yes normal to inspection, Yes normocephalic and Yes atraumatic Neck Neck: Yes normal visual inspection and Yes trachea midline Chest Chest palpation & inspection: normal inspection of the chest GI Inspection: Yes normal to inspection General: Yes no CVA tenderness Back/Spine/Pelvis Back: no CVA tenderness Neuro General: oriented to person Psych Appearance: well kempt Speech and movement: Slowed speech present (Psych) and Slowed movement present (Neuro) Attitude: cooperative Insight: Limited insight present (Psych) Judgement: Limited judgement present (Psych) Office Procedures Post Void Residual Post Residual Void Post Void Residual (PVR): 48 [id number] Void Residual by ultrasound Results AMB Urinalysis, Automated UA Leukoctes 0 Jinny/uL Last Edit by [employer] on 06/18/23 10:08 UA Nitrite Negative Last Edit by [employer] on 06/18/23 10:08 UA Urobilinogen 0.2 mg/dL Last Edit by [employer] on 06/18/23 10:08 UA Protein 0 mg/dL Last Edit by [employer] on 06/18/23 10:08 UA pH 6.0 Last Edit by [employer] on 06/18/23 10:08 UA Blood 0 Azar/uL Last Edit by [employer] on 06/18/23 10:08 UA Specific Mchenry 1.010 Last Edit by [employer] on 06/18/23 10:08 UA Ketone Negative Last Edit by [employer] on 06/18/23 10:08 UA Bilirubin 0 mg/dL Last Edit by [employer] on 06/18/23 10:08 UA Glucose 0 mg/dL Last Edit by [employer] on 06/18/23 10:08 Results Reviewed Results Reviewed: Laboratory Last Values Urine pH (Auto) 6.0 06/18/23 09:52 Specific Mchenry (Auto) 1.010 06/18/23 09:52 Urine Protein (Auto) 0 mg/dL 06/18/23 09:52 Glucose (UA)(Auto) 0 mg/dL 06/18/23 09:52 Urine Ketones (Auto) Negative 06/18/23 09:52 Urine Blood (Auto) 0 Azar/uL 06/18/23 09:52 Urine Nitrite (Auto) Negative 06/18/23 09:52 Urine Bilirubin (Auto) 0 mg/dL 06/18/23 09:52 Urine Urobilinogen (Auto) 0.2 mg/dL 06/18/23 09:52 Leukocyte Esterase (Auto) 0 Jinny/uL 06/18/23 09:52 Assessment & Plan Assessment & Plan (1) Urge incontinence: Code(s): N39.41 - Urge incontinence Plan In office urinalysis results reviewed with the patient and her electrician helper powerhouse today; as noted above. PVR 48 mL. Continue Myrbetriq as discussed and prescribed Continue with prompt voiding, scheduled toileting, and time voiding Will obtain retroperitoneal ultrasound for further assessment evaluation. Educated, encouraged, and stressed the importance of drinking plenty of water daily. Follow-up in 6 months with PVR; or sooner with any issues, concerns, and or questions. Orders: Orders AMB Urinalysis Automated Today Z13.9 - Encounter for screening, unspecified AMB Post Void Residual by ultrasound Today R33.9 - Retention of urine, unspecified US retroperitoneal comp Today N39.41 - Urge incontinence Patient Instructions: The patient had an opportunity to ask questions regarding the treatment plan. All questions were answered. Physical exam, labs, and imaging were discussed and reviewed in detail. As well as risks, benefits, and discussion of treatment choices. No major barriers to understanding were identified. The patient expressed understanding and agreement with the above treatment plan. The patient was made aware they should contact our office by phone for worsening of their current condition, the appearance of new symptoms, or with any questions or concerns. Compliance is encouraged with any medications and follow up testing that is ordered. It is a privilege to be allowed the opportunity to participate in? your urological care.? Again, if you have any questions or concerns If you have any questions or concerns please do not hesitate to contact me. The office is [phone]. This note is constructed using voice recognition software. While every effort has been made to ensure accuracy iron worker apprentice errors may have been included. Yours sincerely, TRAV Clayton Coding Level of Care Code Est Pt Level 3 (08883) Diagnoses Urge incontinence N39.41 CPT Codes Post Residual Void - PVR CPT Code: 10302-Jwiu Void Residual by ultrasound ([id number])
== END 2023-06-18 10:27 | disposition home or self-care (01) ==
PROVIDERS: Visit Provider Nurse Practitioner Family
DX: Z13.9 Encounter for screening, unspecified (principal)
CPT/HCPCS: 99213

== ENCOUNTER → 2023-06-18 09:33 | Outpatient (BNVA) | payer MEDICARE, MEDICAID, SELFPAY | PROVIDERS: Visit Provider Nurse Practitioner Family | DX: N39.41 Urge incontinence (principal) | CPT/HCPCS: 51798; 81003; 99212 ==

== ENCOUNTER 2023-06-20 09:30 | Outpatient (AMB) | payer MEDICARE, MEDICAID, SELFPAY ==
[2023-06-20 09:32] VITALS: BP 130/88; PULSE 60; O2SAT 98; BMI 39.8
--- NOTE | 2023-06-20 09:32 | MHC.PC.OV ---
Vital Signs 06/20/23 09:32 Height 5 ft 6 in Weight 246 lb 14.684 oz BMI 39.8 BP 130/88 Blood Pressure Location Lt brachial Position Sitting Pulse 60 Pulse Source Pulse Oximeter Pulse Oximetry (%) 98 Oxygen Delivery Method Room Air Intake Visit Reasons: Foot Swollen/ Redness Student Services Rep: Present Allergies No Known Allergies [No Known Allergies*] Allergy (Verified 06/20/23 09:58) Medication List - Last Reconciled 06/20/23 by MACKENZIE Gutierrez acetaminophen (Tylenol) 650 mg (2 x 325 mg) PO Q6H PRN aspirin (Adult Low Dose Aspirin) 81 mg PO DAILY atropine 1% 1 drp ophthalmic (eye) bacitracin 1 appl topical DAILY benztropine 0.5 mg PO DAILY calcium carbonate-vitamin D3 600 mg-10 mcg (400 unit) 1 tab PO BID diaper,brief,adult,disposable (Briefs, Adult-Extra Large) As directed docusate sodium 100 mg PO QAM 90 days fluoxetine (Prozac) 80 mg (2 x 40 mg) PO DAILY guaifenesin ER 600 mg PO Q12H PRN latanoprost 0.005% 0 drps ophthalmic (eye) memantine (Namenda) 10 mg PO BID midodrine 10 mg orally; do not give last dose of day after 6PM or within 4 hrs of bedtime 10 MG in the AM and 5 MG in the PM midodrine 5 mg PO DAILY mirabegron ER (Myrbetriq) 25 mg PO DAILY 90 days nirmatrelvir-ritonavir 150-100 mg (Paxlovid) PO PER PKG DIR nirmatrelvit 150 mg with Ritonavir 100 mg BID 5 days nystatin 1 appl topical TID nystatin (Nyamyc) 1 appl topical TID omeprazole 20 mg PO DAILY pyridoxine (vitamin B6) 50 mg PO QAM risperidone 1 mg PO BEDTIME sulfamethoxazole-trimethoprim 800-160 mg (Bactrim DS) 1 tab PO BID [Transport wheelchair As directed] [Walker with seat As directed] Tobacco use date assessed: 09/20/22 Fall risk assessment: No Falls in past year Last assessed Fall Risk: 06/20/23 Dental Screening Dental Screen Date: 06/20/23 Did you have a dental visit in the last 12 months?: Yes Did you have a dental problem in the last 6 months where you did not have access to dental care?: No Was dental information given to patient?: Patient has dentist HPI HPI Comments History of Present Illness Details 67-year-old obese female with mental and behavioral problem history of CVA GERD impulse control disorder and incomplete bladder emptying. Patient of last seen in April. Patient presents today with staff from [facility]. Patient presents today for same-day visit for redness/ swollen foot. Staff noticed red lump on her left foot since last night. denies injury to foot. Examination patient was noted to have left foot erythema, trace swelling and warmth on all digits of foot, extending up to midfoot. Right foot within normal limits. Positive pedal pulses bilaterally. Patient denies any pain. Patient's staff worker denies any fever, chills, sob. [facility] Medical History COVID-19 virus infection Intellectual delay TSH elevation Rash Screening for osteoporosis COVID-19 vaccine series completed Incontinence Increased frequency of urination Preop exam for internal medicine Retinal detachment of left eye due to tear of retina Fibroids Amblyopia of left eye GERD (gastroesophageal reflux disease) Obesity (BMI 35.0-39.9 without comorbidity) Impulse control disorder Cholelithiasis Anxiety Seizure disorder Breast mass, right Surgical History Hx of colonoscopy History of cataract surgery History of pacemaker S/P breast biopsy, right Family History Father Cancer Mother CAD (coronary artery disease) Sister In good health Brother In good health Social History Household Members Other:: RETIREMENT Housing: Other Housing Other:: Nursing Home Alcohol intake: never Patient Tobacco Use Status: Never used Tobacco e-Cigarette/Vaping Use: Never Used Second Hand Smoke Exposure: No Advance Directives Date on File: 05/04/21 service: No Current occupational status: disabled Cognitive needs: Yes Hearing needs: No Vision needs: Yes Questionnaire PHQ-9 Over the last 2 weeks, how often have you been bothered by any of the following problems? 1. Little interest or pleasure in doing things: not at all 2. Feeling down, depressed, or hopeless: not at all 3. Trouble falling or staying asleep, or sleeping too much: not at all 4. Feeling tired or having little energy: not at all 5. Poor appetite or overeating: several days 6. Feeling bad about yourself - or that you are a failure or have let yourself or your family down: not at all 7. Trouble concentrating on things, such as reading the newspaper or watching television: several days 8. Moving or speaking so slowly that other people could have noticed. Or the opposite - being so fidgety or restless that you have been moving around a lot more than usual: not at all 9. Thoughts that you would be better off or of hurting yourself in some way: not at all Total score: 2 Source: Developed by Drs. Tung Zavala, Yamilka Posadas, Doroteo Myers and colleagues, with an educational dagoberto from [employer]. Thrive Questionnaire Date Thrive assessed: 12/31/22 AUDIT C Alcohol Use Questionnaire (AUDIT-C) 1. How often do you have a drink containing alcohol?: Never 3. How often do you have six or more drinks on one occasion?: Never Total Score: 0 Score Reviewed/Action Taken: No MARK-7 AMB Questionnaire MARK-7 Date MARK - 7 assessed: 09/20/22 Source: Developed by Drs. Tung Zavala, Yamilka Posadas, Doroteo Myers and colleagues, with an educational dagoberto from [employer]. Review of Systems Const Denies chills, Denies fatigue, Denies fever(s) and Denies poor appetite Eyes Denies no additional complaints ENT Reports Normal hearing present Card Denies chest pain, Denies syncope, Denies rapid heart rate and Denies dyspnea Resp Denies cough and Denies dyspnea GI Denies change in stool character, Denies constipation, Denies diarrhea, Denies nausea and Denies vomiting Denies urinary frequency, Denies dysuria and Denies urinary urgency Skin/Breast Details: Left foot redness and swelling Neuro Reports Normal hearing present, Denies confusion and Denies syncope Psych Denies confusion Endo Denies fatigue Physical exam (Primary Care) Vital Signs: Last Vital Signs Pulse 60 06/20/23 09:32 BP 130/88 06/20/23 09:32 Pulse Ox 98 06/20/23 09:32 Oxygen Delivery Method Room Air 06/20/23 09:32 BMI result Body Mass Index 39.8 Tobacco/Smoking Status: Tobacco use Status Tobacco use date assessed 09/20/22 06/20/23 09:35 Patient Tobacco Use Status Never used Tobacco 06/20/23 09:35 e-Cigarette/Vaping Use Never Used 06/20/23 09:35 PHQ-9: PHQ-9 Score PHQ-9: Total score 2 06/20/23 09:40 Thrive Assessment: Date of Thrive Assessment Date Thrive assessed 12/31/22 06/20/23 09:35 Const General: No confusion Orientation/consciousness: No confusion HENMT Head: Yes normocephalic and Yes atraumatic Eyes Conjunctivae: conjunctivae normal Chest Chest palpation & inspection: normal inspection of the chest Resp Effort & Inspection: normal respiratory effort Auscultation: clear to auscultation bilaterally, no crackles, no rhonchi and no wheezes Cardio Rate: regular rate Rhythm: regular rhythm Heart sounds: S1 normal heart sound present and S2 normal heart sound present Peripheral pulses: dorsalis pedis present Neuro General: No confusion Cranial nerves: Yes Normal hearing present Extrem General: No edema Ankle/foot/toe images: 1. Erythema, warmth and trace swelling noted to left toes extending up to left midfoot. No open areas noted. Assessment and Plan Assessment & Plan (1) Cellulitis of left foot: Code(s): L03.116 - Cellulitis of left lower limb Plan: Bactrim b.i.d. x7 days sent to patient's pharmacy for left foot cellulitis. Signs and symptoms reviewed with patient and shelter staff worker when to follow-up or seek emergency medical attention. Plan Keep scheduled follow-up with PCP or follow-up sooner if needed. Medications: New sulfamethoxazole-trimethoprim 800-160 mg (Bactrim DS) 1 tab PO BID 14 tabs 0RF Coding Level of Care Code Est Pt Level 3 (53766) Diagnoses Cellulitis of left foot L03.116
== END 2023-06-20 10:40 | disposition home or self-care (01) ==
PROVIDERS: PCP Internal Medicine; Visit Provider Nurse Practitioner Family
DX: L03.116 Cellulitis of left lower limb (principal)
CPT/HCPCS: 99213

== ENCOUNTER 2023-10-01 09:49 | Outpatient (AMB) | payer MEDICARE, MEDICAID, SELFPAY ==
[2023-10-01 09:52] VITALS: BP 122/70; PULSE 60; O2SAT 98
--- NOTE | 2023-10-01 09:52 | HO.NEPHOV ---
HPI HPI Comments History of Present Illness Details I would the privilege of seeing Nikki in follow-up for history of orthostatic hypotension. She has gained some weight. She denies any dizziness, palpitation, chest pain, nausea, vomiting, diarrhea. She has no urinary symptoms. She has no fever, suprapubic pain or any other systemic symptoms at the time of this office visit. [facility] Medical History COVID-19 virus infection Intellectual delay TSH elevation Rash Screening for osteoporosis COVID-19 vaccine series completed Incontinence Increased frequency of urination Preop exam for internal medicine Retinal detachment of left eye due to tear of retina Fibroids Amblyopia of left eye GERD (gastroesophageal reflux disease) Obesity (BMI 35.0-39.9 without comorbidity) Impulse control disorder Cholelithiasis Anxiety Seizure disorder Breast mass, right Surgical History Hx of colonoscopy History of cataract surgery History of pacemaker S/P breast biopsy, right Family History Father Cancer Mother CAD (coronary artery disease) Sister In good health Brother In good health Social History Household Members Other:: [facility] Housing: Other 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 Alcohol intake: never Patient Tobacco Use Status: Never used Tobacco e-Cigarette/Vaping Use: Never Used Second Hand Smoke Exposure: No Advance Directives Date on File: 05/04/21 service: No Current occupational status: disabled Cognitive needs: Yes Hearing needs: No Vision needs: Yes Vital Signs 10/01/23 09:52 Height 5 ft 6 in BP 122/70 Blood Pressure Location Rt brachial Position Sitting Pulse 60 Pulse Source Pulse Oximeter Pulse Oximetry (%) 98 Oxygen Delivery Method Room Air Physical Exam Vital Signs: Last Vital Signs Pulse 60 10/01/23 09:52 BP 122/70 10/01/23 09:52 Pulse Ox 98 10/01/23 09:52 Oxygen Delivery Method Room Air 10/01/23 09:52 Const General: comfortable and no acute distress Orientation/consciousness: patient oriented x3 HEENT Head: Yes normocephalic Mouth: Normal oral and palatal mucosa present Eyes EOM: EOMs intact bilaterally Neck Neck: Yes supple Resp Auscultation: clear to auscultation bilaterally Cardio Jugular venous distension: no JVD Rate: regular rate GI Palpation (GI): Soft to palpation Auscultation: normal bowel sounds General: Yes no CVA tenderness Back/Spine/Pelvis Back: no CVA tenderness Skin General skin exam: no rashes or lesions noted Neuro General: patient oriented x3 and moves all extremities Extrem General: Yes no pedal edema Assessment & Plan Assessment & Plan (1) Orthostasis: Code(s): I95.1 - Orthostatic hypotension Plan Nikki has history of symptomatic orthostatic hypotension which has been treated with midodrine and is under good control. She has no history of hyperkalemia. She is gained some weight. She can continue current dose of midodrine. Her blood pressure is currently at goal. I did not make any medication changes today. She will be seen in the office for continued care. Follow-up given. Coding Level of Care Code Est Pt Level 3 (72504) Diagnoses Orthostasis I95.1 Results Reviewed Nephrology Results: No Data to Display
== END 2023-10-01 10:23 | disposition home or self-care (01) ==
PROVIDERS: PCP Internal Medicine; Visit Provider Internal Medicine Nephrology
DX: I95.1 Orthostatic hypotension (principal)
CPT/HCPCS: 99213

== ENCOUNTER → 2023-10-01 09:49 | Outpatient (BNVA) | payer MEDICARE, MEDICAID, SELFPAY | PROVIDERS: PCP Internal Medicine; Visit Provider Internal Medicine Nephrology | DX: I95.1 Orthostatic hypotension (principal) | CPT/HCPCS: 99212 ==

== ENCOUNTER 2023-12-01 09:47 | Outpatient (REF) | payer MEDICARE, MEDICAID, SELFPAY ==
--- NOTE | ~2023-12-01 | US_ITS ---
EXAMINATION: US RETROPERITONEAL COMPLETE (RENAL) CLINICAL INFORMATION: Urge incontinence. COMPARISON: Ultrasound abdomen complete 09/03/2017 and 04/21/2014. TECHNIQUE: Real-time imaging of the kidneys and bladder. Technically severely limited study secondary to body habitus. FINDINGS: RIGHT KIDNEY: 9.0 x 4.1 x 5.2 cm (SAG x AP x TRV). The kidney is normal in size, contour, and echogenicity. Renal cortical thickness is normal. No calculi or focal parenchymal lesions. No hydronephrosis. LEFT KIDNEY: 11.2 x 5.0 x 4.6 cm (SAG x AP x TRV). The kidney is normal in size, contour, and echogenicity. Renal cortical thickness is normal. No calculi or focal parenchymal lesions. No hydronephrosis. BLADDER: Well distended and normal. Bilateral ureteral jets are demonstrated. Prevoid bladder volume is 150 mL. Postvoid bladder volume is 33 mL. US/US retroperitoneal comp IMPRESSION: The right kidney is smaller than the left but otherwise unremarkable. 33 mL postvoid residual.
== END 2023-12-01 09:48 | disposition home or self-care (01) ==
LOC: HO.US 09:47
PROVIDERS: PCP Internal Medicine; Visit Provider Nurse Practitioner Family
DX: N39.41 Urge incontinence (principal)
CPT/HCPCS: 76770

== ENCOUNTER 2023-12-03 09:52 | Outpatient (AMB) | payer MEDICARE, MEDICAID, SELFPAY ==
[2023-12-03 09:53] VITALS: BP 132/68; PULSE 60; O2SAT 95; BMI 40.3
--- NOTE | 2023-12-03 09:53 | MHC.PC.OV ---
Vital Signs 12/03/23 09:53 Height 5 ft 6 in Weight 250 lb BMI 40.3 BP 132/68 Blood Pressure Location Lt brachial Position Sitting Pulse 60 Pulse Source Pulse Oximeter Pulse Oximetry (%) 95 Oxygen Delivery Method Room Air Intake Visit Reasons: Athletes Foot Follow up from Walk-in [place] [facility] Required: No Allergies No Known Allergies [No Known Allergies*] Allergy (Verified 12/03/23 09:54) Medication List - Last Reconciled 12/03/23 by Angela Godinez MD acetaminophen (Tylenol) 650 mg (2 x 325 mg) PO Q6H aspirin (Adult Low Dose Aspirin) 81 mg PO DAILY atropine 1% 1 drp ophthalmic (eye) bacitracin 1 appl topically; As needed every Six hour apply Three time Daily to Rashes, Ritchie or open wounds benztropine 0.5 mg PO DAILY calcium carbonate-vitamin D3 600 mg-10 mcg (400 unit) 1 tab PO BID clotrimazole 1% 1 appl topical BID 4 weeks compress.stocking,knee,reg,lrg As directed 20-30 mm HG diaper,brief,adult,disposable (Briefs, Adult-Extra Large) As directed docusate sodium 100 mg PO QAM 90 days fluoxetine (Prozac) 80 mg (2 x 40 mg) PO DAILY guaifenesin 200 Mg/5 ml as needed every four hours for head chest Congestion And Cough.; latanoprost 0.005% 0 drps ophthalmic (eye) memantine (Namenda) 10 mg PO BID midodrine 5 mg PO DAILY mirabegron ER (Myrbetriq) 25 mg PO DAILY 90 days nystatin (Nyamyc) 1 appl topical TID omeprazole 20 mg PO DAILY pyridoxine (vitamin B6) 50 mg PO QAM risperidone 1 mg PO BEDTIME [Transport wheelchair As directed] [Walker with seat As directed] Tobacco use date assessed: 12/03/23 Fall risk assessment: No Falls in past year Last assessed Fall Risk: 12/03/23 Dental Screening Dental Screen Date: 06/20/23 [facility] Athletes Foot Follow up from Walk-in HPI Details 68-year-old morbidly obese female with cognitive impairment impulse control disorder with a history of GERD and CVA coming in for follow-up. Last seen in June 2023 having some leg infection. Patient's colon test is up-to-date May 2021 mammogram is due bone density is up-to-date. Review of the notes has been seeing Nephrology for orthostatic hypotension treated with midodrine. Patient was seen by the nurse practitioner in June for foot swelling left foot treated with Bactrim patient also follows up with urology for urinary incontinence but mostly from delayed walking patient will placed with [facility] ultrasound requested but this was just done. Results are pending. seeing RN for podiatry and noted ? foot infection. PAtient sits down all day feets has redness with scaliness and areas of 5 mm erythematous rash [facility] Medical History (Updated 12/03/23 @ 10:16 by Angela Godinez MD) Medicare annual wellness visit, subsequent COVID-19 virus infection Intellectual delay TSH elevation Rash Screening for osteoporosis COVID-19 vaccine series completed Incontinence Increased frequency of urination Preop exam for internal medicine Retinal detachment of left eye due to tear of retina Fibroids Amblyopia of left eye GERD (gastroesophageal reflux disease) Obesity (BMI 35.0-39.9 without comorbidity) Impulse control disorder Cholelithiasis Anxiety Seizure disorder Breast mass, right Surgical History Hx of colonoscopy History of cataract surgery History of pacemaker S/P breast biopsy, right Family History Father Cancer Mother CAD (coronary artery disease) Sister In good health Brother In good health Social History Household Members Other:: INTERMEDIATE Housing: Other Housing Other:: [facility] Alcohol intake: never Patient Tobacco Use Status: Never used Tobacco e-Cigarette/Vaping Use: Never Used Second Hand Smoke Exposure: No Advance Directives Date on File: 05/04/21 service: No Current occupational status: disabled Cognitive needs: Yes Hearing needs: No Vision needs: Yes Questionnaire Thrive Questionnaire Date Thrive assessed: 12/31/22 AUDIT C Alcohol Use Questionnaire (AUDIT-C) 1. How often do you have a drink containing alcohol?: Never 3. How often do you have six or more drinks on one occasion?: Never Total Score: 0 Score Reviewed/Action Taken: No MARK-7 AMB Questionnaire MARK-7 Date MARK - 7 assessed: 09/20/22 Source: Developed by Drs. Tung Zavala, Yamilka Posadas, Doroteo Myers and colleagues, with an educational dagoberto from [employer]. Physical exam (Primary Care) Vital Signs: Oxygen Delivery Method Room Air 12/03/23 09:53 BMI result Body Mass Index 41.7 Tobacco/Smoking Status: Tobacco use Status Tobacco use date assessed 09/20/22 06/20/23 09:35 Patient Tobacco Use Status Never used Tobacco 06/20/23 09:35 e-Cigarette/Vaping Use Never Used 06/20/23 09:35 Thrive Assessment: Date of Thrive Assessment Date Thrive assessed 12/31/22 06/20/23 09:35 Const General: alert; No acute distress Eyes Conjunctivae: conjunctivae normal Resp Auscultation: clear to auscultation bilaterally Cardio Rate: regular rate Rhythm: regular rhythm GI Inspection: Yes normal to inspection Extrem Other: feets has redness with scaliness and areas of 5 mm er Assessment and Plan Assessment & Plan (1) Morbid obesity: Code(s): E66.01 - Morbid (severe) obesity due to excess calories Plan: Diet and exercise (2) Incomplete bladder emptying: Code(s): R33.9 - Retention of urine, unspecified Plan: Patient was seen by Urology and has been placed on mirabegron (3) Breast cancer screening by mammogram: Code(s): Z12.31 - Encounter for screening mammogram for malignant neoplasm of breast Plan: Reminded about mammogram (4) Cognitive and behavioral changes: Comment: ? dementia Code(s): R41.89 - Other symptoms and signs involving cognitive functions and awareness; R46.89 - Other symptoms and signs involving appearance and behavior Plan: Continue to follow-up with psychiatry (5) Impulse control disorder: Comment: Dr. linder Code(s): F63.9 - Impulse disorder, unspecified Plan: Continue to follow-up with psychiatry (6) Orthostasis: Code(s): I95.1 - Orthostatic hypotension Plan: Patient has seen Nephrology on midodrine (7) GERD (gastroesophageal reflux disease): Code(s): K21.9 - Gastro-esophageal reflux disease without esophagitis Qualifiers: Esophagitis presence: without esophagitis Qualified Code(s): K21.9 - Gastro-esophageal reflux disease without esophagitis Plan: Avoid the foods that causes that usually spicy foods, tomato products, juices, coffee, soda and foods that your sensitive to. After eating do not lie down, allow 3-4 hours before in lie down. And keep the head of bed above 30 degrees to avoid the acid from going up. (8) Peripheral vascular disease: Code(s): I73.9 - Peripheral vascular disease, unspecified (9) Tinea pedis: Code(s): B35.3 - Tinea pedis Medications: New clotrimazole 1% bilateral feet 1 appl topical BID 45 grams 0RF 4 weeks B35.3 - Tinea pedis compress.stocking,knee,reg,lrg As directed 20-30 mm HG 12 ea 0RF I73.9 - Peripheral vascular disease, unspecified Coding Level of Care Code Est Pt Level 4 (31357) Diagnoses Morbid obesity E66.01 Incomplete bladder emptying R33.9 Breast cancer screening by mammogram Z12.31 Cognitive and behavioral changes R41.89; R46.89 Impulse control disorder F63.9 Orthostasis I95.1 Gastroesophageal reflux disease without esophagitis K21.9 Esophagitis presence: without esophagitis Peripheral vascular disease I73.9 Tinea pedis B35.3
== END 2023-12-03 10:28 | disposition home or self-care (01) ==
PROVIDERS: PCP Internal Medicine; Visit Provider Internal Medicine
DX: R33.9 Retention of urine, unspecified (principal); E66.01 Morbid (severe) obesity due to excess calories; I73.9 Peripheral vascular disease, unspecified; Z68.41 Body mass index [BMI] 40.0-44.9, adult; Z12.31 Encounter for screening mammogram for malignant neoplasm of breast; R41.89 Other symptoms and signs involving cognitive functions and awareness; R46.89 Other symptoms and signs involving appearance and behavior; F63.9 Impulse disorder, unspecified; I95.1 Orthostatic hypotension; K21.9 Gastro-esophageal reflux disease without esophagitis; B35.3 Tinea pedis
CPT/HCPCS: 99214

== ENCOUNTER 2023-12-16 09:32 | Outpatient (AMB) | payer MEDICARE, MEDICAID, SELFPAY ==
--- NOTE | 2023-12-16 09:37 | MHC.OFFVIS ---
Intake Intake Visit Reasons: 6m/US(set) Intake Note: Patient presents today for established treatment of : Incontinence Imagin12/01/23 Urology Medications: Myrbetriq Allergies to Antibiotic: None Blood Thinner: Aspirin PVR: 79ml's Slitter And Rewinder Machine Operator Required: No Accompanied by: TRANSITION MANAGER Allergies No Known Allergies [No Known Allergies*] Allergy (Verified 12/16/23 10:05) Medication List - Last Reconciled 12/16/23 by MACKENZIE Clayton-IWONA acetaminophen (Tylenol) 650 mg (2 x 325 mg) PO Q6H aspirin (Adult Low Dose Aspirin) 81 mg PO DAILY atropine 1% 1 drp ophthalmic (eye) bacitracin 1 appl topically; As needed every Six hour apply Three time Daily to Rashes, Ritchie or open wounds benztropine 0.5 mg PO DAILY calcium carbonate-vitamin D3 600 mg-10 mcg (400 unit) 1 tab PO BID clotrimazole 1% 1 appl topical BID 4 weeks compress.stocking,knee,reg,lrg As directed 20-30 mm HG diaper,brief,adult,disposable (Briefs, Adult-Extra Large) As directed docusate sodium 100 mg PO QAM 90 days fluoxetine (Prozac) 80 mg (2 x 40 mg) PO DAILY guaifenesin 200 Mg/5 ml as needed every four hours for head chest Congestion And Cough.; latanoprost 0.005% 0 drps ophthalmic (eye) memantine (Namenda) 10 mg PO BID midodrine 5 mg PO DAILY mirabegron ER (Myrbetriq) 25 mg PO DAILY 90 days nystatin (Nyamyc) 1 appl topical TID omeprazole 20 mg PO DAILY pyridoxine (vitamin B6) 50 mg PO QAM risperidone 1 mg PO BEDTIME [Transport wheelchair As directed] [Walker with seat As directed] HPI HPI Comments History of Present Illness Details Nikki Menjivar is a 68 year old female patient of Dr. 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 She has a past medical history of intellectual delay, incontinence, fibroids, amblyobia of left eye, GERD, impulse control disorder, anxiety, and seizure disorder. The patient has a history of developmental delay as well as dementia.?Patient is being seen today to follow up on her incontinence. Patient with a history of limited speech. She answers in single words and has trouble comprehending. Thus, patients [place] [facility] member provides much of todays history. Recent retroperitoneal ultrasound results reviewed with the patient and wharf worker. Bilateral kidneys with no nephrolithiasis, lesions, and or hydronephrosis. The bladder is well distended and normal. Pre void bladder volume is approximately 150 mL. Postvoid bladder volume is approximately 30 mL. She continues to be compliant with 25 mg of Myrbetriq daily. In office urinalysis results reviewed with the patient today. PVR 79 mL. Patient and home care attendant deny any urination issues at this time.?She discusses her plans for the day as she is going to get her hair done and then going to lunch at [facility]. She otherwise offers no other issues or concerns at this time. [facility] Medical History Medicare annual wellness visit, subsequent COVID-19 virus infection Intellectual delay TSH elevation Rash Screening for osteoporosis COVID-19 vaccine series completed Incontinence Increased frequency of urination Preop exam for internal medicine Retinal detachment of left eye due to tear of retina Fibroids Amblyopia of left eye GERD (gastroesophageal reflux disease) Obesity (BMI 35.0-39.9 without comorbidity) Impulse control disorder Cholelithiasis Anxiety Seizure disorder Breast mass, right Surgical History Hx of colonoscopy History of cataract surgery History of pacemaker S/P breast biopsy, right Family History Father Cancer Mother CAD (coronary artery disease) Sister In good health Brother In good health Social History Household Members Other:: [facility] Housing: Other Housing Other:: [facility] Alcohol intake: never Patient Tobacco Use Status: Never used Tobacco e-Cigarette/Vaping Use: Never Used Second Hand Smoke Exposure: No Advance Directives Date on File: 05/04/21 service: No Current occupational status: disabled Cognitive needs: Yes Hearing needs: No Vision needs: Yes Review of Systems Const Reports as per HPI Eyes Reports as per HPI ENT Reports no additional complaints Card Reports no additional complaints Resp Reports no additional complaints GI Reports as per HPI Reports as per HPI Musc Reports no additional complaints Neuro Details: Patient with cognitive delay Reports as per HPI Psych Reports as per HPI Endo Reports no additional complaints Physical Exam Const General: cooperative, comfortable, no acute distress, well developed, alert and awake Nutritional Appearance: overweight Orientation/consciousness: oriented to person Limitations: ambulation with walker HEENT Head: Yes normal to inspection, Yes normocephalic and Yes atraumatic Neck Neck: Yes normal visual inspection and Yes trachea midline Chest Chest palpation & inspection: normal inspection of the chest GI Inspection: Yes normal to inspection General: Yes no CVA tenderness Back/Spine/Pelvis Back: no CVA tenderness Neuro General: oriented to person Psych Appearance: well kempt Speech and movement: Slowed speech present (Psych) and Slowed movement present (Neuro) Attitude: cooperative Insight: Limited insight present (Psych) Judgement: Limited judgement present (Psych) Office Procedures Post Void Residual Post Residual Void Post Void Residual (PVR): 79 [id number] Void Residual by ultrasound Results AMB Urinalysis, Automated UA Leukoctes 0 Jinny/uL Last Edit by Doutor Recomenda on 12/16/23 10:00 UA Nitrite Negative Last Edit by Doutor Recomenda on 12/16/23 10:00 UA Urobilinogen 0.2 mg/dL Last Edit by Doutor Recomenda on 12/16/23 10:00 UA Protein 0 mg/dL Last Edit by Doutor Recomenda on 12/16/23 10:00 UA pH 6.0 Last Edit by Doutor Recomenda on 12/16/23 10:00 UA Blood 10 Azar/uL Last Edit by Doutor Recomenda on 12/16/23 10:00 UA Specific [place] 1.010 Last Edit by Doutor Recomenda on 12/16/23 10:00 UA Ketone Negative Last Edit by Doutor Recomenda on 12/16/23 10:00 UA Bilirubin 0 mg/dL Last Edit by Doutor Recomenda on 12/16/23 10:00 UA Glucose 0 mg/dL Last Edit by Doutor Recomenda on 12/16/23 10:00 Results Reviewed Results Reviewed: Laboratory Last Values Urine pH (Auto) 6.0 12/16/23 09:59 Specific [place] (Auto) 1.010 12/16/23 09:59 Urine Protein (Auto) 0 mg/dL 12/16/23 09:59 Glucose (UA)(Auto) 0 mg/dL 12/16/23 09:59 Urine Ketones (Auto) Negative 12/16/23 09:59 Urine Blood (Auto) 10 Azar/uL 12/16/23 09:59 Urine Nitrite (Auto) Negative 12/16/23 09:59 Urine Bilirubin (Auto) 0 mg/dL 12/16/23 09:59 Urine Urobilinogen (Auto) 0.2 mg/dL 12/16/23 09:59 Leukocyte Esterase (Auto) 0 Jinny/uL 12/16/23 09:59 Date of Service: 12/01/23 Procedure(s): US retroperitoneal comp FINDINGS: RIGHT KIDNEY: 9.0 x 4.1 x 5.2 cm (SAG x AP x TRV). The kidney is normal in size, contour, and echogenicity. Renal cortical thickness is normal. No calculi or focal parenchymal lesions. No hydronephrosis. LEFT KIDNEY: 11.2 x 5.0 x 4.6 cm (SAG x AP x TRV). The kidney is normal in size, contour, and echogenicity. Renal cortical thickness is normal. No calculi or focal parenchymal lesions. No hydronephrosis. BLADDER: Well distended and normal. Bilateral ureteral jets are demonstrated. Prevoid bladder volume is 150 mL. Postvoid bladder volume is 33 mL. IMPRESSION: The right kidney is smaller than the left but otherwise unremarkable. 33 mL postvoid residual. Assessment & Plan Assessment & Plan (1) Incomplete bladder emptying: Code(s): R33.9 - Retention of urine, unspecified (2) Urge incontinence: Code(s): N39.41 - Urge incontinence Plan In office urinalysis results reviewed with the patient and her warehouse team leader today; as noted above. PVR 79mL. Recent retroperitoneal ultrasound results reviewed with the patient today; as noted above. Continue Myrbetriq as discussed and prescribed Continue with prompt voiding, scheduled toileting, and time voiding. Educated, encouraged, and stressed the importance of drinking plenty of water daily. Follow-up in 6 months with PVR; or sooner with any issues, concerns, and or questions. Orders: Orders AMB Urinalysis Automated Today N39.41 - Urge incontinence, Z13.9 - Encounter for screening, unspecified AMB Post Void Residual by ultrasound Today N39.41 - Urge incontinence Patient Instructions: The patient had an opportunity to ask questions regarding the treatment plan. All questions were answered. Physical exam, labs, and imaging were discussed and reviewed in detail. As well as risks, benefits, and discussion of treatment choices. No major barriers to understanding were identified. The patient expressed understanding and agreement with the above treatment plan. The patient was made aware they should contact our office by phone for worsening of their current condition, the appearance of new symptoms, or with any questions or concerns. Compliance is encouraged with any medications and follow up testing that is ordered. It is a privilege to be allowed the opportunity to participate in? your urological care.? Again, if you have any questions or concerns If you have any questions or concerns please do not hesitate to contact me. The office is [phone]. This note is constructed using voice recognition software. While every effort has been made to ensure accuracy packager hand errors may have been included. Yours sincerely, MACKENZIE Clayton-IWONA Coding Level of Care Code Est Pt Level 3 (32236) Diagnoses Incomplete bladder emptying R33.9 Urge incontinence N39.41 CPT Codes Post Residual Void - PVR CPT Code: 88298-Xqxm Void Residual by ultrasound ([id number])
== END 2023-12-16 10:07 | disposition home or self-care (01) ==
PROVIDERS: PCP Internal Medicine; Visit Provider Nurse Practitioner Family
DX: R33.9 Retention of urine, unspecified (principal); N39.41 Urge incontinence; Z13.9 Encounter for screening, unspecified
CPT/HCPCS: 99213

== ENCOUNTER → 2023-12-16 09:32 | Outpatient (BNVA) | payer MEDICARE, MEDICAID, SELFPAY | PROVIDERS: PCP Internal Medicine; Visit Provider Nurse Practitioner Family | DX: R33.9 Retention of urine, unspecified (principal); N39.41 Urge incontinence | CPT/HCPCS: 51798; 81003; 99212 ==

== ENCOUNTER 2023-12-31 08:33 | Outpatient (AMB) | payer MEDICARE, MEDICAID, SELFPAY ==
[2023-12-31 08:46] VITALS: BP 130/68; PULSE 75; O2SAT 97; BMI 40.5
--- NOTE | 2023-12-31 08:46 | A.OFFPC_ITS ---
Vital Signs 12/31/23 08:46 Height 5 ft 6 in Weight 251 lb BMI 40.5 BP 130/68 Blood Pressure Location Lt brachial Position Standing Pulse 75 Pulse Source Pulse Oximeter Pulse Oximetry (%) 97 Oxygen Delivery Method Room Air Intake Visit Reasons: 3 month follow up Allergies No Known Allergies [No Known Allergies*] Allergy (Verified 12/31/23 08:47) Tobacco use date assessed: 12/03/23 Fall risk assessment: No Falls in past year Last assessed Fall Risk: 12/31/23 Dental Screening Dental Screen Date: 12/31/23 Did you have a dental visit in the last 12 months?: Yes Did you have a dental problem in the last 6 months where you did not have access to dental care?: No Was dental information given to patient?: Patient has dentist HPI 3 month follow up HPI Details 68-year-old morbidly obese female with a history of cognitive behavioral change impulse control disorder GERD coming in for follow-up. Last seen in 12/03/2023. Review of the notes has been follow-up with urology for incomplete bladder emptying on mirabegron [facility] Medical History Medicare annual wellness visit, subsequent COVID-19 virus infection Intellectual delay TSH elevation Rash Screening for osteoporosis COVID-19 vaccine series completed Incontinence Increased frequency of urination Preop exam for internal medicine Retinal detachment of left eye due to tear of retina Fibroids Amblyopia of left eye GERD (gastroesophageal reflux disease) Obesity (BMI 35.0-39.9 without comorbidity) Impulse control disorder Cholelithiasis Anxiety Seizure disorder Breast mass, right Surgical History Hx of colonoscopy History of cataract surgery History of pacemaker S/P breast biopsy, right Family History Father Cancer Mother CAD (coronary artery disease) Sister In good health Brother In good health Social History Household Members Other:: ASSISTED Housing: Other Housing Other:: [facility] Alcohol intake: never Patient Tobacco Use Status: Never used Tobacco e-Cigarette/Vaping Use: Never Used Second Hand Smoke Exposure: No Advance Directives Date on File: 05/04/21 service: No Current occupational status: disabled Cognitive needs: Yes Hearing needs: No Vision needs: Yes Questionnaire PHQ-9 Over the last 2 weeks, how often have you been bothered by any of the following problems? 1. Little interest or pleasure in doing things: not at all 2. Feeling down, depressed, or hopeless: not at all 3. Trouble falling or staying asleep, or sleeping too much: not at all 4. Feeling tired or having little energy: not at all 5. Poor appetite or overeating: several days 6. Feeling bad about yourself - or that you are a failure or have let yourself or your family down: not at all 7. Trouble concentrating on things, such as reading the newspaper or watching television: several days 8. Moving or speaking so slowly that other people could have noticed. Or the op posite - being so fidgety or restless that you have been moving around a lot more than usual: not at all 9. Thoughts that you would be better off or of hurting yourself in some way: not at all Total score: 2 Source: Developed by Drs. Tung Zavala, Yamilka Posadas, Doroteo Myers and colleagues, with an educational dagoberto from [employer]. Thrive Questionnaire Date Thrive assessed: 12/31/23 I am a: Parent/Caregiver What is your living situation today?: I have a steady place to live Within the past 12 months, did the food you bought not last and you didn't have the money to get more?: Never true Within the past 12 months, did you worry whether your food would run out before you got money to buy more?: Never true Do you have trouble paying for medicines?: No Do you have trouble getting transportation to medical appointments?: No Do you have trouble paying your heating and electricity bill?: No Do you have trouble taking care of your child, family member or friend?: No Do you have trouble with day-to-day activities such as bathing, preparing meals, shopping, managing finances, etc.?: No Are you currently unemployed and looking for a job?: No Currently or been in a relationship where the following occur: no concerns reported THRIVE Score: 0 AUDIT C Alcohol Use Questionnaire (AUDIT-C) 1. How often do you have a drink containing alcohol?: Never 3. How often do you have six or more drinks on one occasion?: Never Total Score: 0 Score Reviewed/Action Taken: No MARK-7 AMB Questionnaire MARK-7 Date MARK - 7 assessed: 12/31/23 Feeling nervous, anxious, or on edge: 0 = Not at all Not being able to stop or control worryin = Not at all Worrying too much about different things: 0 = Not at all Trouble relaxin = Not at all Being so restless that it is hard to sit still: 0 = Not at all Becoming easily annoyed or irritable: 0 = Not at all Feeling afraid as if something awful might happen: 0 = Not at all Total MARK-7 score (0-4 normal; 5-9 mild; 10-14 moderate; 15-21 severe): 0 Source: Developed by Drs. Tung Zavala, Yamilka Posadas, Doroteo Myers and colleagues, with an educational dagoberto from [employer]. Physical exam (Primary Care) Vital Signs: Oxygen Delivery Method Room Air 12/31/23 08:46 Tobacco/Smoking Status: Tobacco use Status Tobacco use date assessed 12/03/23 12/31/23 08:48 Patient Tobacco Use Status Never used Tobacco 12/31/23 08:48 e-Cigarette/Vaping Use Never Used 12/31/23 08:48 PHQ-9: PHQ-9 Score PHQ-9: Total score 2 12/31/23 08:48 Thrive Assessment: Date of Thrive Assessment Date Thrive assessed 12/31/23 12/31/23 08:48 Currently or been in a relationship where the following occur: no concerns reported Const General: alert; No acute distress Eyes Conjunctivae: conjunctivae normal Resp Auscultation: clear to auscultation bilaterally Cardio Rate: regular rate Rhythm: regular rhythm GI Inspection: Yes normal to inspection Extrem General: Yes normal to inspection and No edema Assessment and Plan Assessment & Plan (1) Morbid obesity: Code(s): E66.01 - Morbid (severe) obesity due to excess calories Plan: Diet and exercise discussion regarding patient's activity need to move to help lose the weight will try to decrease carbohydrates in the diet (2) GERD (gastroesophageal reflux disease): Code(s): K21.9 - Gastro-esophageal reflux disease without esophagitis Qualifiers: Esophagitis presence: without esophagitis Qualified Code(s): K21.9 - Gastro-esophageal reflux disease without esophagitis Plan: Avoid the foods that causes that usually spicy foods, tomato products, juices, coffee, soda and foods that your sensitive to. After eating do not lie down, allow 3-4 hours before in lie down. And keep the head of bed above 30 degrees to avoid the acid from going up. On omeprazole 20 mg once a day (3) CVA (cerebral vascular accident): Comment: April 2022 There is bibasal ganglia lacunar infarct slightly greater on the right side. Mild cerebral volume loss with chronic small vessel ischemic changes. Code(s): I63.9 - Cerebral infarction, unspecified Plan: Patient on aspirin 81 mg once a dayNeurology (4) Incomplete bladder emptying: Code(s): R33.9 - Retention of urine, unspecified Plan: Patient follows up with urology placed on mirabegron (5) Impulse control disorder: Comment: Dr. linder Code(s): F63.9 - Impulse disorder, unspecified Plan: Continue to follow-up with psychiatry risperidone, fluoxetine benztropine Coding Level of Care Code Est Pt Level 4 (74641) Diagnoses Morbid obesity E66.01 Gastroesophageal reflux disease without esophagitis K21.9 Esophagitis presence: without esophagitis CVA (cerebral vascular accident) I63.9 Incomplete bladder emptying R33.9 Impulse control disorder F63.9
== END 2023-12-31 09:19 | disposition home or self-care (01) ==
PROVIDERS: PCP Internal Medicine; Visit Provider Internal Medicine
DX: R33.9 Retention of urine, unspecified (principal); E66.01 Morbid (severe) obesity due to excess calories; Z68.41 Body mass index [BMI] 40.0-44.9, adult; K21.9 Gastro-esophageal reflux disease without esophagitis; F63.9 Impulse disorder, unspecified
CPT/HCPCS: 99214

== ENCOUNTER 2024-03-31 09:45 | Outpatient (AMB) | payer MEDICARE, MEDICAID, SELFPAY ==
[2024-03-31 09:47] VITALS: BP 134/72; PULSE 60; O2SAT 96; BMI 40.2
--- NOTE | 2024-03-31 09:47 | HO.NEPHOV ---
Vital Signs 03/31/24 09:47 Height 5 ft 6 in Weight 249 lb 2 oz BMI 40.2 BP 134/72 Blood Pressure Location Rt brachial Position Sitting Pulse 60 Pulse Source Pulse Oximeter Pulse Oximetry (%) 96 Oxygen Delivery Method Room Air Intake Visit Reasons: Orthostasis/ 6 MO FU Curer Foam Rubber Required: No Accompanied by: Other Relationship Allergies No Known Allergies [No Known Allergies*] Allergy (Verified 03/31/24 09:52) HPI Comments Details: I would the privilege of seeing Nikki in follow-up for history of orthostatic hypotension. She has gained some weight. She denies any dizziness, palpitation, chest pain, nausea, vomiting, diarrhea. She has no urinary symptoms. She has no fever, suprapubic pain or any other systemic symptoms at the time of this office visit [facility] Medical History Medicare annual wellness visit, subsequent COVID-19 virus infection Intellectual delay TSH elevation Rash Screening for osteoporosis COVID-19 vaccine series completed Incontinence Increased frequency of urination Preop exam for internal medicine Retinal detachment of left eye due to tear of retina Fibroids Amblyopia of left eye GERD (gastroesophageal reflux disease) Obesity (BMI 35.0-39.9 without comorbidity) Impulse control disorder Cholelithiasis Anxiety Seizure disorder Breast mass, right Surgical History Hx of colonoscopy History of cataract surgery History of pacemaker S/P breast biopsy, right Family History Father Cancer Mother CAD (coronary artery disease) Sister In good health Brother In good health Social History Household Members Other:: [facility] Housing: Other Housing Other:: [facility] Alcohol intake: never Patient Tobacco Use Status: Never used Tobacco e-Cigarette/Vaping Use: Never Used Second Hand Smoke Exposure: No Advance Directives Date on File: 05/04/21 service: No Current occupational status: disabled Cognitive needs: Yes Hearing needs: No Vision needs: Yes Review of Systems Const All systems reviewed & are unremarkable except as noted in HPI and below Physical Exam Vital Signs: Last Vital Signs Pulse 60 03/31/24 09:47 BP 134/72 03/31/24 09:47 Pulse Ox 96 03/31/24 09:47 Oxygen Delivery Method Room Air 03/31/24 09:47 BMI result Body Mass Index 40.2 Const General: comfortable and no acute distress Orientation/consciousness: patient oriented x3 HEENT Head: Yes normocephalic Mouth: Normal oral and palatal mucosa present Eyes EOM: EOMs intact bilaterally Neck Neck: Yes supple Resp Auscultation: clear to auscultation bilaterally Cardio Jugular venous distension: no JVD Rate: regular rate GI Palpation (GI): Soft to palpation Auscultation: normal bowel sounds General: Yes no CVA tenderness Back/Spine/Pelvis Back: no CVA tenderness Skin General skin exam: no rashes or lesions noted Neuro General: patient oriented x3 and moves all extremities Extrem General: Yes no pedal edema Results Reviewed Nephrology Results: No Data to Display Assessment & Plan Assessment & Plan (1) Orthostasis: Code(s): I95.1 - Orthostatic hypotension Category: Medical Plan Nikki has history of symptomatic orthostatic hypotension which has been treated with midodrine and is under good control. She has no history of hyperkalemia. She is gained some weight. She can continue current dose of midodrine. Her blood pressure is currently at goal. I did not make any medication changes today. She will be seen in the office for continued care. Follow-up given. Orders: Orders Electrolytes Today I95.1 - Orthostatic hypotension Calcium Today I95.1 - Orthostatic hypotension Creatinine Today I95.1 - Orthostatic hypotension Blood Urea Nitrogen Today I95.1 - Orthostatic hypotension Coding Level of Care Code Est Pt Level 4 (43246) Diagnoses Orthostasis I95.1
== END 2024-03-31 10:08 | disposition home or self-care (01) ==
PROVIDERS: PCP Internal Medicine; Visit Provider Internal Medicine Nephrology
DX: I95.1 Orthostatic hypotension (principal)
CPT/HCPCS: 99214

== ENCOUNTER → 2024-03-31 09:45 | Outpatient (BNVA) | payer MEDICARE, MEDICAID, SELFPAY | PROVIDERS: PCP Internal Medicine; Visit Provider Internal Medicine Nephrology | DX: I95.1 Orthostatic hypotension (principal); E78.00 Pure hypercholesterolemia, unspecified; I63.9 Cerebral infarction, unspecified | CPT/HCPCS: 36415; 80053; 80061; 82306; 82607; 82746; 84439; 84443; 85025; 99212 ==

== ENCOUNTER 2024-03-31 10:22 | Outpatient (REF) | payer MEDICARE, MEDICAID, SELFPAY ==
[2024-03-31 12:27] LABS: MANUAL DIFF FLAG NO
[2024-03-31 12:35] LABS: Basophils Absolute Auto 0.1 X10*3/uL (0.0-0.2); Basophils Percent Auto 0.6 % (0-2); Eosinophils Absolute Auto 0.1 X10*3/uL (0.0-0.4); Eosinophils Percent Auto 1.3 % (0-4); Hematocrit 41.3 % (37.0-47.0); Hemoglobin 12.8 g/dl (12.0-16.0); Imm Gran Abs Auto 0.03 X10*3/uL (0.00-0.03); Imm Gran Pct Auto 0.4 % (0.0-0.4); Lymphocytes Absolute Auto 1.7 X10*3/uL (1.2-4.9); Mean Corpuscular Volume 93.7 fL (80.0-98.0); Mean Platelet Volume 10.5 fL (9.4-12.3); Monocytes Absolute Auto 0.7 X10*3/uL (0.1-1.2); Monocytes Percent Auto 8.7 % (2-11); Neutrophils Absolute Auto 5.4 x10*3/uL (2.0-8.3); Platelet Count 269 X10*3/uL (160-400); Red Blood Count 4.41 X10*6/uL (4.20-5.50); Red Cell Distribution Width 13.3 % (11.0-16.0)
[2024-03-31 13:16] LABS: Alanine Aminotransferase 26 U/L (0-31); Albumin Level 3.8 g/dL (3.5-5.0); Alkaline Phosphatase 56 U/L (39-117); Anion Gap 11 (12-20); Aspartate Amino Transferase 39 U/L (5-31); Bilirubin Total 0.4 mg/dL (0.0-1.0); Blood Urea Nitrogen 16 mg/dL (9-16); Calcium 10.1 mg/dL (8.4-10.2); Carbon Dioxide 26 mmol/L (22-29); Chloride 104 mmol/L (96-108); Cholesterol 185 mg/dL (<200); Estimated Glomerular Filt Rate 56; Glucose Random 74 mg/dL (60-115); HDL Cholesterol 52 mg/dL (>40); LDL Cholesterol Calculated 119 mg/dL (<100); Potassium 4.3 mmol/L (3.3-5.1); Sodium 137 mmol/L (135-145); Total Protein 7.4 g/dL (6.5-8.0); Triglycerides 73 mg/dL (<150)
[2024-03-31 13:32] LABS: Free T4 (Free Thyroxine) 0.99 ng/dL (0.71-1.85); Thyroid Stimulating Hormone 3.33 uIU/mL (0.32-4.0)
[2024-03-31 13:42] LABS: Folate 7.3 ng/mL (> or = 4.0); Vitamin B12 366 pg/mL (200-900)
== END 2024-03-31 10:23 | disposition home or self-care (01) ==
LOC: HO.10HDL 10:22
PROVIDERS: Referring Provider Internal Medicine Nephrology; Visit Provider Internal Medicine
DX: Z13.89 Encounter for screening for other disorder (principal)
CPT/HCPCS: 36415; 80053; 80061; 82306; 82607; 82746; 84439; 84443; 85025

== ENCOUNTER 2024-04-14 09:55 | Outpatient (REF) | payer MEDICARE, MEDICAID, SELFPAY ==
--- NOTE | ~2024-04-14 | US_ITS ---
EXAMINATION: US ABDOMEN COMPLETE CLINICAL INFORMATION: Other specified abnormal findings of blood chemistry. COMPARISON: Ultrasound kidneys and bladder 12/01/2023. Ultrasound abdomen complete 09/03/2017. TECHNIQUE: Real-time imaging of the abdominal viscera. Technically limited study secondary to bowel gas, body habitus and inability to hold breath. FINDINGS: PANCREAS: Limited visualization of pancreatic tail and head. Imaged portion of pancreatic body is unremarkable. ABDOMINAL AORTA: Poorly visualized. INFERIOR VENA CAVA: Visualized portions are normal. LIVER: Increased hepatic parenchymal heterogeneity and echogenicity could be associated with hepatocellular disease/hepatic steatosis and superiorly limits visualization. Correlation with liver function tests and clinical exam recommended to determine further management. GALLBLADDER: Cholelithiasis. No gallbladder wall thickening, although evaluation of gallbladder is limited due to suboptimal distention and bowel gas. COMMON BILE DUCT: Common duct is dilated measuring 1.3 cm in diameter. RIGHT KIDNEY: Atrophic right kidney. No hydronephrosis. No renal calculi. Limited visualization. The kidney measures 9.3 cm in maximum dimension. LEFT KIDNEY: No hydronephrosis. No renal calculi. Limited visualization. The kidney measures 11.5 cm in maximum dimension. SPLEEN: Normal. The spleen measures 8.5 cm in maximum dimension. FREE FLUID: None. US/US abdomen complete IMPRESSION: 1. Increased hepatic parenchymal heterogeneity and echogenicity could be associated with hepatocellular disease/hepatic steatosis and severely limits visualization. Correlation with liver function tests and clinical exam recommended to determine further management. 2. Cholelithiasis. No gallbladder wall thickening, although evaluation of gallbladder is limited due to suboptimal distention and bowel gas. 3. Common duct is dilated measuring 1.3 cm in diameter. 4. Atrophic right kidney. Electronically signed by: Kathy Chopra MD 05/10/2024 07:11 AM EDT
== END 2024-04-14 09:56 | disposition home or self-care (01) ==
LOC: HO.HMGCX 09:55
PROVIDERS: PCP Internal Medicine
DX: R79.89 Other specified abnormal findings of blood chemistry (principal)
CPT/HCPCS: 76700

== ENCOUNTER 2024-05-04 09:16 | Outpatient (AMB) | payer MEDICARE, MEDICAID, SELFPAY ==
[2024-05-04 09:19] VITALS: BP 130/68; PULSE 71; O2SAT 96; BMI 39.7
--- NOTE | 2024-05-04 09:19 | A.OFFVIS_ITS ---
Intake Vital Signs 05/04/24 09:19 Height 5 ft 6 in Weight 245 lb 13.047 oz BMI 39.7 BP 130/68 Blood Pressure Location Rt brachial Position Sitting Pulse 71 Pulse Source Pulse Oximeter Pulse Oximetry (%) 96 Oxygen Delivery Method Room Air Intake Visit Reasons: AWV Allergies No Known Allergies [No Known Allergies*] Allergy (Verified 05/04/24 09:32) Medication List - Last Reconciled 05/04/24 by Nadia Holden PA-C acetaminophen (Tylenol) 650 mg (2 x 325 mg) PO Q6H aspirin (Adult Low Dose Aspirin) 81 mg PO DAILY atropine 1% 1 drp ophthalmic (eye) bacitracin 1 appl topically; As needed every Six hour apply Three time Daily to Rashes, Bustillos or open wounds benztropine 0.5 mg PO DAILY calcium carbonate-vitamin D3 600 mg-10 mcg (400 unit) 1 tab PO BID compress.stocking,knee,reg,lrg As directed 15-20 mm HG diaper,brief,adult,disposable (Briefs, Adult-Extra Large) As directed docusate sodium 100 mg PO QAM 90 days fluoxetine (Prozac) 80 mg (2 x 40 mg) PO DAILY guaifenesin 200 Mg/5 ml as needed every four hours for head chest Congestion And Cough.; latanoprost 0.005% 0 drps ophthalmic (eye) memantine 10 mg PO BID midodrine 15 mg PO DAILY mirabegron ER (Myrbetriq) 25 mg PO DAILY 90 days omeprazole 20 mg PO DAILY pyridoxine (vitamin B6) 50 mg PO QAM risperidone 1 mg PO BEDTIME [Transport wheelchair As directed] [Walker with seat As directed] HPI AWV HPI Details 68-year-old obese female with a history of cognitive behavioral change impulse control disorder GERD coming in for annual wellness visit.?And review of the notes, patient was [place] [facility] [place] for orthostatic hypotension, on good control with midodrine. Patient presents today with staff member from her detention. They have no acute concerns today and they follow up with routine exams. She does see the molasses feed mixer yearly for increased intra-ocular pressure and follows with podiatry for nail care every 3 months. She primarily uses a walker full-time for ambulation and wheelchair with long distances. She does not regularly exercise but they have been working on incorporating small exercise into her daily routine. [facility] Medical History (Updated 05/04/24 @ 10:14 by Nadia Holden PA-C) Medicare annual wellness visit, subsequent COVID-19 virus infection Intellectual delay TSH elevation Rash Screening for osteoporosis COVID-19 vaccine series completed Incontinence Increased frequency of urination Preop exam for internal medicine Retinal detachment of left eye due to tear of retina Fibroids Amblyopia of left eye GERD (gastroesophageal reflux disease) Obesity (BMI 35.0-39.9 without comorbidity) Impulse control disorder Cholelithiasis Anxiety Seizure disorder Breast mass, right Surgical History Hx of colonoscopy History of cataract surgery History of pacemaker S/P breast biopsy, right Family History Father Cancer Mother CAD (coronary artery disease) Sister In good health Brother In good health Social History Household Members Other:: [employer] Housing: Other Housing Other:: Half-Way Alcohol intake: never Patient Tobacco Use Status: Never used Tobacco e-Cigarette/Vaping Use: Never Used Second Hand Smoke Exposure: No Advance Directives Date on File: 05/04/21 service: No Current occupational status: disabled Cognitive needs: Yes Hearing needs: No Vision needs: Yes Questionnaire Medicare Wellness Checkup What [age] What gender do you identify with?: female During the past 4 weeks, how much have you been bothered by emotional problems such as feeling anxious, depressed, irritable, sad or downhearted, and blue?: slightly During the past 4 weeks, has your physical & emotional health limited your social activities with family, friends, neighbors, or groups?: slightly During the past 4 weeks, how much bodily pain have you generally had?: no pain During the past 4 weeks, was someone available to help you if you needed & wanted help?: yes, as much as I wanted During the past 4 weeks, what was the hardest physical activity you could do for at least 2 minutes?: very light Can you get to places out of walking distance without help? (For eg., can you travel alone on buses, taxis or drive your car?): No Can you go shopping for groceries or clothes without someone's help?: No Can you prepare your own meals?: No Can you do your housework without help?: No Because of any health problems, do you need the help of another person with your personal care needs such as eating, bathing, dressing or getting around the house?: Yes Can you handle your own money without help?: No During the past 4 weeks, how would you rate your health in general?: good During the past 4 weeks how have things been going for you?: pretty well Are you having difficulties driving your car?: not applicable, I don't use a car Do you always fasten your seat belt when you are in a car?: yes, usually During past 4 weeks, have you been bothered by the following: never: Falling or dizzy when standing up, Sexual problems?, Trouble eating well?, Teeth or denture problems? and Problems using the telephone? and sometimes: Tiredness or fatigue? Have you fallen 2 or more times in the past year?: No Are you afraid of falling?: Yes Are you a smoker?: no During the past 4 weeks, how many drinks of wine, beer, or other alcoholic beverages did you have?: no alcohol at all Do you exercise for about 20 minutes 3 or more times a week?: no, I usually do not exercise this much Have you been given information to help with the following?: yes: Hazards in your house that might hurt you? and yes: Keeping track of your medications? How often do you have trouble taking medicines the way you have been told to take them?: I always take medicine as prescribed How confident are you that you can control & manage most of your health problems?: somewhat confident What is your race?: White PHQ-9 Over the last 2 weeks, how often have you been bothered by any of the following problems? 1. Little interest or pleasure in doing things: not at all 2. Feeling down, depressed, or hopeless: not at all 3. Trouble falling or staying asleep, or sleeping too much: not at all 4. Feeling tired or having little energy: not at all 5. Poor appetite or overeating: several days 6. Feeling bad about yourself - or that you are a failure or have let yourself or your family down: not at all 7. Trouble concentrating on things, such as reading the newspaper or watching television: several days 8. Moving or speaking so slowly that other people could have noticed. Or the opposite - being so fidgety or restless that you have been moving around a lot more than usual: not at all 9. Thoughts that you would be better off or of hurting yourself in some way: not at all Total score: 2 Depression Screening Interpretation: Negative Depression Screening Done: Yes 48735 - PHQ-9 Billing: Yes Source: Developed by Drs. Tung Zavala, Yamilka Posadas, Doroteo Myers and colleagues, with an educational dagoberto from [employer]. Review of Systems Const Denies body aches, Denies fatigue, Denies fever(s), Denies frequent falls, Denies headache(s) and Denies weakness Eyes Reports no additional complaints and Denies change in vision ENT Denies dysphagia, Denies dizziness, Denies facial pain, Denies headache(s), Denies nasal congestion and Denies odynophagia Card Denies chest pain, Denies syncope, Denies irregular heart rhythm, Denies leg edema, Denies lightheadedness and Denies dyspnea Resp Denies cough and Denies dyspnea GI Denies constipation, Denies dysphagia, Denies dyspepsia, Denies diarrhea, Denies nausea, Denies odynophagia and Denies vomiting Denies urinary frequency, Denies dysuria, Denies urinary hesitancy and Denies urinary urgency Musc Denies back pain and Denies myalgias Skin/Breast Reports system reviewed and no additional complaints, except as documented Neuro Denies dizziness, Denies syncope, Denies frequent falls, Denies headache(s) and Denies weakness Psych Reports no additional complaints Endo Denies fatigue Physical Exam Vital Signs: Last Vital Signs Pulse 71 05/04/24 09:19 BP 130/68 05/04/24 09:19 Pulse Ox 96 05/04/24 09:19 Oxygen Delivery Method Room Air 05/04/24 09:19 BMI result Body Mass Index 39.7 Const General: cooperative, healthy appearing, comfortable and no acute distress Orientation/consciousness: patient oriented x3 HEENT Head: Yes normocephalic Ears: hearing grossly normal bilaterally, external ears normal, TM's normal bilaterally and EAC's normal General nose exam: Normal external nose present Face and sinus: Yes normal facial exam and Yes sinuses nontender Mouth: Normal oral and palatal mucosa present and tongue normal Throat: Yes posterior oropharynx normal Eyes General: appearance normal, both eyes and all related structures Conjunctivae: conjunctivae normal Pupils: Equal, round and reactive pupils present EOM: No Nystagmus present Neck Neck: Yes normal visual inspection, Yes full ROM and Yes no lymphadenopathy Chest Chest palpation & inspection: normal inspection of the chest Resp Effort & Inspection: normal respiratory effort Auscultation: clear to auscultation bilaterally, no crackles, no rales, no rhonchi, no wheezes and breath sounds present Cardio Rate: regular rate Rhythm: regular rhythm Peripheral pulses: radial pulses present and dorsalis pedis present GI Inspection: Yes normal to inspection and No Abdominal wall edema Palpation (GI): Soft to palpation, not firm and nontender Auscultation: normal bowel sounds Rectal Exam - Female: deferred General: Yes no CVA tenderness Back/Spine/Pelvis Back: no CVA tenderness Skin General skin exam: no rashes or lesions noted Neuro General: patient oriented x3 Cranial nerves: Yes Equal, round and reactive pupils present, Yes Midline tongue present, Yes Ability to bilaterally elevate shoulders present and No Nystagmus present Gait exam (Neuro): Normal gait present Extrem General: Yes normal to inspection, Yes full ROM, No no pedal edema and No edema Psych Speech and movement: Normal speech and movement present Affect: normal affect Insight: Good insight present (Psych) Judgement: Good judgement present (Psych) Assessment & Plan Assessment & Plan (1) Elevated LFTs: Code(s): R79.89 - Other specified abnormal findings of blood chemistry Plan: Patient had elevated LFTs on last blood work. Ultrasound completed and awaiting read. (2) Morbid obesity: Code(s): E66.01 - Morbid (severe) obesity due to excess calories Plan: Encouraged healthy diet and routine exercise. (3) CVA (cerebral vascular accident): Comment: April 2022 There is bibasal ganglia lacunar infarct slightly greater on the right side. Mild cerebral volume loss with chronic small vessel ischemic changes. Code(s): I63.9 - Cerebral infarction, unspecified Plan: Continue on tight blood pressure, sugar, and cholesterol control. (4) Cognitive and behavioral changes: Comment: ? dementia Code(s): R41.89 - Other symptoms and signs involving cognitive functions and awareness; R46.89 - Other symptoms and signs involving appearance and behavior Plan: Patient was following with Neurology but was discharged for primary care management. (5) Impulse control disorder: Comment: Dr. linder Code(s): F63.9 - Impulse disorder, unspecified (6) Urge incontinence: Code(s): N39.41 - Urge incontinence Plan: Continue on Myrbetriq. (7) Tubular adenoma of colon: Comment: May 2021 Code(s): D12.6 - Benign neoplasm of colon, unspecified Plan: Repeat colonoscopy due in 2025. (8) GERD (gastroesophageal reflux disease): Code(s): K21.9 - Gastro-esophageal reflux disease without esophagitis Qualifiers: Esophagitis presence: without esophagitis Qualified Code(s): K21.9 - Gastro-esophageal reflux disease without esophagitis Plan: Avoid trigger foods such as citrus, tomato products, soda, caffeine, spicy foods and other foods that may be irritating to your stomach. Avoid laying flat 3-4 hours after eating and elevate the head of the bed 30 degrees to prevent acid from moving into the esophagus. Continue on omeprazole (9) Medicare annual wellness visit, subsequent: Code(s): Z00.00 - Encounter for general adult medical examination without abnormal findings Plan: Patient is up-to-date on all recommended routine screenings and vaccinations for her age. She is due for her bone density scan this July and was referred today. All questions were answered in no acute concerns were addressed in this visit. Patient was given MOLST form to complete at home. Plan This note was constructed using voice recognition software. While every effort has been made to ensure accuracy and program rep, still areas may have been included sometimes these areas may affect the content or meeting of the given symptoms. Total time spent caring for the patient today was 30 minutes. This includes time spent before the visit reviewing the chart, time spent during the visit, and time spent after the visit and documentation. Orders: Orders XR DEXA axial skeleton Today Z78.0 - Asymptomatic menopausal state Medications: New ibuprofen tylenol should be administered first. If symptoms have not improved in 2 hours ibuprofen can be given. Contact HCP if not resolved in 3 days. Take medication whole in applesauce. 200 mg PO Q4-6H PRN 30 caps 2RF pain Changed From bacitracin 1 appl topically; As needed every Six hour apply Three time Daily to Rashes, Bustillos or open wounds 14 grams 0RF To bacitracin apply up to 3x per day to rashes, open wounds, minor bustillos, small cuts or scrapes. Clean and dry thoroughly prior to applying. May cover with a sterile bandage. Contact HCP if not resolved in 7 days. 14 grams 0RF From acetaminophen (Tylenol) As needed every 4 Hours not to exceed 3250 / A day for Temp Over 100 Degrees For headaches, Joint Pain Or Fever. 650 mg (2 x 325 mg) PO Q6H 30 tabs 12RF fever or pain To acetaminophen (Tylenol) As needed every 4 Hours not to exceed 3250 / A day for Temp Over 100 Degrees For headaches, Joint Pain Or Fever. If symptoms have not improved in 2 hours may use ibuprofen. Contact HCP if not resolved in 3 days. Take medication whole in applesauce. Not to exceed 3250 in 24 hours. 650 mg (2 x 325 mg) PO Q6H 30 tabs 12RF fever or pain From guaifenesin (5 mL) 200 Mg/5 ml as needed every four hours for head chest Congestion And Cough.; 118 mL 0RF cough To guaifenesin (5 mL) 200 Mg/5 ml as needed every four hours for head chest Congestion And Cough.; Contact HCP if not resolved in 3 days or rash develops. 118 mL 0RF cough Quality Reporting (2019) Depression/Bipolar (159/160/161/177) PHQ-9: Total score: 2 Coding Level of Care Code Medicare Subsequent (G0439) Diagnoses Elevated LFTs R79.89 Morbid obesity E66.01 CVA (cerebral vascular accident) I63.9 Cognitive and behavioral changes R41.89; R46.89 Impulse control disorder F63.9 Urge incontinence N39.41 Tubular adenoma of colon D12.6 Gastroesophageal reflux disease without esophagitis K21.9 Esophagitis presence: without esophagitis Medicare annual wellness visit, subsequent Z00.00 CPT Codes Advance Care Planning - Time spent: 1-15 minutes, not on file ([id number]) Advance Care Planning Advance Care Planning discussion: Exists, not on file Date of discussion: 05/04/24 Who was present: Patient, patient cash application representative Forms completed: Health Care Proxy and MOLST Time spent: 1-15 minutes, not on file Actual minutes spent: 5 Did not discuss due to Cultural/Spiritual beliefs: No
== END 2024-05-04 10:12 | disposition home or self-care (01) ==
PROVIDERS: PCP Internal Medicine
DX: Z00.00 Encounter for general adult medical examination without abnormal findings (principal); E66.01 Morbid (severe) obesity due to excess calories; Z68.39 Body mass index [BMI] 39.0-39.9, adult; R41.89 Other symptoms and signs involving cognitive functions and awareness; R46.89 Other symptoms and signs involving appearance and behavior; F63.9 Impulse disorder, unspecified; N39.41 Urge incontinence; D12.6 Benign neoplasm of colon, unspecified; K21.9 Gastro-esophageal reflux disease without esophagitis
CPT/HCPCS: 1124F; G0439

== ENCOUNTER 2024-06-16 09:31 | Outpatient (AMB) | payer MEDICARE, MEDICAID, SELFPAY ==
--- NOTE | 2024-06-16 09:38 | A.OFFVIS_ITS ---
Intake Visit Reasons: 6m/PVR Intake Note: Patient presents today for established treatment of : Incontinence Urology Medications: Myrbetriq Allergies to Antibiotic: None Blood Thinner: Aspirin PVR: Feed Research Aide Required: No Accompanied by: SECTION LEADER AND MACHINE SETTER Allergies No Known Allergies [No Known Allergies*] Allergy (Verified 06/16/24 12:58) Medication List - Last Reconciled 06/16/24 by MACKENZIE Clayton-IWONA acetaminophen (Tylenol) 650 mg (2 x 325 mg) PO Q6H aspirin (Adult Low Dose Aspirin) 81 mg PO DAILY atropine 1% 1 drp ophthalmic (eye) bacitracin apply up to 3x per day to rashes, open wounds, minor bustillos, small cuts or scrapes. Clean and dry thoroughly prior to applying. May cover with a sterile bandage. Contact HCP if not resolved in 7 days. benztropine 0.5 mg PO DAILY calcium carbonate-vitamin D3 600 mg-10 mcg (400 unit) 1 tab PO BID compress.stocking,knee,reg,lrg As directed 15-20 mm HG diaper,brief,adult,disposable (Briefs, Adult-Extra Large) As directed docusate sodium 100 mg PO QAM 90 days fluoxetine (Prozac) 80 mg (2 x 40 mg) PO DAILY guaifenesin 200 Mg/5 ml as needed every four hours for head chest Congestion And Cough.; Contact HCP if not resolved in 3 days or rash develops. ibuprofen 200 mg PO Q4-6H PRN latanoprost 0.005% 0 drps ophthalmic (eye) memantine 10 mg PO BID midodrine 15 mg PO DAILY mirabegron ER (Myrbetriq) 25 mg PO DAILY 90 days omeprazole 20 mg PO DAILY pyridoxine (vitamin B6) 50 mg PO QAM risperidone 1 mg PO BEDTIME [Transport wheelchair As directed] [Walker with seat As directed] HPI Comments Details: Nikki Menjivar is a 68 year old female patient of Dr. Godinez who lives in a correction and is accompanied by one of the care attendants/cell room supervisor that helps take care of her daily. She has a past medical history of intellectual delay, incontinence, fibroids, amblyobia of left eye, GERD, impulse control disorder, anxiety, and seizure disorder. The patient has a history of developmental delay as well as dementia.?Patient is being seen today to follow up on her urinary incontinence. Patient with a history of limited speech. She answers in single words and has trouble comprehending thus, patients correction member provides much of todays history. shelter member denies patient to h ave any bothersome urinary issues or concerns since her last office visit here approximately 6 months ago. She reports patient to be compliant with Myrbetriq daily as prescribed. In office urinalysis results reviewed with the patient and correction member today. PVR 0 mL. Previous workup has included retroperitoneal ultrasound 12/23 noting bilateral kidneys with no nephrolithiasis, lesions, and or hydronephrosis. The bladder is well distended and normal. Pre void bladder volume is approximately 150 mL. Postvoid bladder volume is approximately 30 mL. Patient and rn patient care deny any urination issues at this time. She otherwise offers no other issues or concerns at this time. [facility] Medical History Medicare annual wellness visit, subsequent COVID-19 virus infection Intellectual delay TSH elevation Rash Screening for osteoporosis COVID-19 vaccine series completed Incontinence Increased frequency of urination Preop exam for internal medicine Retinal detachment of left eye due to tear of retina Fibroids Amblyopia of left eye GERD (gastroesophageal reflux disease) Obesity (BMI 35.0-39.9 without comorbidity) Impulse control disorder Cholelithiasis Anxiety Seizure disorder Breast mass, right Surgical History Hx of colonoscopy History of cataract surgery History of pacemaker S/P breast biopsy, right Family History Father Cancer Mother CAD (coronary artery disease) Sister In good health Brother In good health Social History Household Members Other:: [employer] Housing: Other Housing Other:: [facility] Alcohol intake: never Patient Tobacco Use Status: Never used Tobacco e-Cigarette/Vaping Use: Never Used Second Hand Smoke Exposure: No Advance Directives Date on File: 05/04/21 service: No Current occupational status: disabled Cognitive needs: Yes Hearing needs: No Vision needs: Yes Review of Systems Const Unobtainable due to mental condition Physical Exam Const General: cooperative, comfortable, no acute distress, well developed, alert and awake Nutritional Appearance: overweight Orientation/consciousness: oriented to person Limitations: ambulation with walker HEENT Head: Yes normal to inspection, Yes normocephalic and Yes atraumatic Neck Neck: Yes normal visual inspection and Yes trachea midline Chest Chest palpation & inspection: normal inspection of the chest GI Inspection: Yes normal to inspection General: Yes no CVA tenderness Back/Spine/Pelvis Back: no CVA tenderness Neuro General: oriented to person Psych Appearance: well kempt Speech and movement: Slowed speech present (Psych) and Slowed movement present (Neuro) Attitude: cooperative Insight: Limited insight present (Psych) Judgement: Limited judgement present (Psych) Office Procedures Post Void Residual Post Residual Void Post Void Residual (PVR): 17 [id number] Void Residual by ultrasound Results AMB Urinalysis, Automated UA Leukoctes 125 Jinny/uL Last Edit by [employer] on 06/16/24 10:31 UA Nitrite Last Edit by [employer] on 06/16/24 10:31 UA Urobilinogen 0.2 mg/dL Last Edit by [employer] on 06/16/24 10:31 UA Protein 0 mg/dL Last Edit by [employer] on 06/16/24 10:31 UA pH 6.0 Last Edit by [employer] on 06/16/24 10:31 UA Blood 0 Azar/uL Last Edit by [employer] on 06/16/24 10:31 UA Specific [place] 1.015 Last Edit by [employer] on 06/16/24 10:31 UA Ketone Last Edit by [employer] on 06/16/24 10:31 UA Bilirubin 0 mg/dL Last Edit by [employer] on 06/16/24 10:31 UA Glucose 0 mg/dL Last Edit by [employer] on 06/16/24 10:31 Results Reviewed Results Reviewed: Laboratory Last Values Urine pH (Auto) 6.0 06/16/24 09:48 Specific [place] (Auto) 1.015 06/16/24 09:48 Urine Protein (Auto) 0 mg/dL 06/16/24 09:48 Glucose (UA)(Auto) 0 mg/dL 06/16/24 09:48 Urine Blood (Auto) 0 Azar/uL 06/16/24 09:48 Urine Bilirubin (Auto) 0 mg/dL 06/16/24 09:48 Urine Urobilinogen (Auto) 0.2 mg/dL 06/16/24 09:48 Leukocyte Esterase (Auto) 125 Jinny/uL 06/16/24 09:48 Assessment & Plan Assessment & Plan (1) Incomplete bladder emptying: Code(s): R33.9 - Retention of urine, unspecified Category: Medical (2) Urge incontinence: Code(s): N39.41 - Urge incontinence Category: Medical Plan In office urinalysis results reviewed with the patient and her housekeeper child care today; as noted above. PVR 0 mL. Continue Myrbetriq as discussed and prescribed; refill provided Continue with prompt voiding, scheduled toileting, and time voiding. Educated, encouraged, and stressed the importance of drinking plenty of water daily. Follow-up in 6 months with PVR; or sooner with any issues, concerns, and or questions. Orders: Orders AMB Urinalysis Automated Today Z13.9 - Encounter for screening, unspecified AMB Post Void Residual by ultrasound Today R33.9 - Retention of urine, unspecified Patient Instructions: The patient had an opportunity to ask questions regarding the treatment plan. All questions were answered. Physical exam, labs, and imaging were discussed and reviewed in detail. As well as risks, benefits, and discussion of treatment choices. No major barriers to understanding were identified. The patient expressed understanding and agreement with the above treatment plan. The patient was made aware they should contact our office by phone for worsening of their current condition, the appearance of new symptoms, or with any questions or concerns. Compliance is encouraged with any medications and follow up testing that is ordered. It is a privilege to be allowed the opportunity to p articipate in? your urological care.? Again, if you have any questions or concerns If you have any questions or concerns please do not hesitate to contact me. The office is [phone]. This note is constructed using voice recognition software. While every effort has been made to ensure accuracy corporate director of pharmacy errors may have been included. Yours sincerely, MACKENZIE Clayton-BC Coding Level of Care Code Est Pt Level 3 (95155) Complex EM visit Add On G2211 Diagnoses Incomplete bladder emptying R33.9 Urge incontinence N39.41 CPT Codes Post Residual Void - PVR CPT Code: 58932-Rysk Void Residual by ultrasound ([id number])
== END 2024-06-16 10:09 | disposition home or self-care (01) ==
PROVIDERS: PCP Internal Medicine; Visit Provider Nurse Practitioner Family
DX: R33.9 Retention of urine, unspecified (principal); N39.41 Urge incontinence; Z13.9 Encounter for screening, unspecified
CPT/HCPCS: 99213; G2211

== ENCOUNTER → 2024-06-16 09:31 | Outpatient (BNVA) | payer MEDICARE, MEDICAID, SELFPAY | PROVIDERS: PCP Internal Medicine; Visit Provider Nurse Practitioner Family | DX: R33.9 Retention of urine, unspecified (principal); N39.41 Urge incontinence | CPT/HCPCS: 51798; 81003; 99212 ==

== ENCOUNTER 2024-07-07 09:48 | Outpatient (REF) | payer MEDICARE, MEDICAID, SELFPAY ==
--- NOTE | ~2024-07-07 | MM_ITS ---
EXAMINATION: BONE DENSITOMETRY CLINICAL INDICATION: Menopause. COMPARISON: Previous BD dated 07/04/2022 and baseline BD dated 07/30/2007. TECHNIQUE: Using a Sequella DXA System (software version: 13.1) manufactured by [employer], dual-energy x-ray absorptiometry was performed of the lumbar spine and left hip. The images are of good technical quality. Summary results are attached. FINDINGS: LEFT FEMUR, NECK: Current: BMD 0.925 g/cm2, Z-score 0.3, T-score -0.8, normal. Prior: BMD 0.776 g/cm2. Baseline: BMD 0.934 g/cm2. LEFT FEMUR, TOTAL: Current: BMD 0.790 g/cm2, Z-score -0.9, T-score -1.7, osteopenia, 9.6% increase from previous, 19.5% decrease from baseline (<5% change is not significant). Prior: BMD 0.721 g/cm2. Baseline: BMD 0.981 g/cm2. AP SPINE L1-L4: Current: BMD 1.367 g/cm2, Z-score 2.4, T-score 1.6, normal, 1.7% increase from previous, 0.1% decrease from baseline (<5% change is not significant). Prior: BMD 1.344 g/cm2. Baseline 03/13/2010: BMD 1.369 g/cm2. IDENTIFIED RISK FACTORS: Menopause. HISTORY OF FRACTURE: None listed. MEDICATIONS: None listed. MM/XR DEXA axial skeleton IMPRESSION: 1. DIAGNOSIS: Osteopenia based on the lowest T-score value of -1.7 in the total femur applying World Health Organization criteria. 2. 10-YEAR FRACTURE RISK PREDICTION, FRAX: Major osteoporotic fracture (clinical spine, forearm, hip or shoulder) 7.7%. Hip fracture 0.7%. 3. Treatment Recommendations: NOF guidelines recommend consideration for treatment in postmenopausal women and men age 50 and older presenting with the following: -A hip or vertebral (clinical or morphometric) fracture. -T-score less than or equal to -2.5 at the femoral neck or spine after appropriate evaluation to exclude secondary causes. -Low bone mass at the hip or spine and a 10-year fracture probability by FRAX of greater than or equal to 3% for hip fracture or greater than or equal to 20% for major osteoporotic fracture based on the [place] adapted WHO algorithm. 4. Other Recommendations: All treatment decisions require clinical judgment and consideration of individual patient factors, including patient preferences, comorbidities, previous drug use, risk factors not captured in the FRAX model (e.g. frailty, falls, vitamin D deficiency, increased bone turnover, interval significant decline in bone density) and possible under or overestimation of fracture risk by FRAX. Additional medical evaluation for secondary cause of low bone mineral density may be appropriate. FUTURE SCAN RECOMMENDATION: People with diagnosed cases of osteoporosis or at high risk for fracture should have regular bone mineral density tests. For patients eligible for Medicare, routine testing is allowed once every 2 years. The testing frequency can be increased to one year for patients who have rapidly progressing disease, those who are receiving or discontinuing medical therapy to restore bone mass, or have additional risk factors. Electronically signed by: Kolton Garcia MD 07/07/2024 04:46 PM [facility]
== END 2024-07-07 09:49 | disposition home or self-care (01) ==
LOC: HO.MAMMO 09:48
DX: Z13.820 Encounter for screening for osteoporosis (principal); Z78.0 Asymptomatic menopausal state
CPT/HCPCS: 77080

== ENCOUNTER 2024-12-16 09:37 | Outpatient (AMB) | payer MEDICARE, MEDICAID, SELFPAY ==
--- NOTE | 2024-12-16 10:17 | A.OFFVIS_ITS ---
Intake Visit Reasons: 6M/ PVR Intake Note: Patient presents today for established treatment of : Incontinence Urology Medications: Myrbetriq Allergies to Antibiotic: None Blood Thinner: Aspirin PVR: 0ml's Colloid Mill Operator Required: No Accompanied by: BULK STATION AGENT Allergies No Known Allergies [No Known Allergies*] Allergy (Verified 12/17/24 21:07) Medication List - Last Reconciled 12/17/24 by TRAV Clayton acetaminophen (Tylenol) 650 mg (2 x 325 mg) PO Q6H aspirin (Adult Low Dose Aspirin) 81 mg PO DAILY atropine 1% 1 drp ophthalmic (eye) bacitracin apply up to 3x per day to rashes, open wounds, minor bustillos, small cuts or scrapes. Clean and dry thoroughly prior to applying. May cover with a sterile bandage. Contact HCP if not resolved in 7 days. benztropine 0.5 mg PO DAILY calcium carbonate-vitamin D3 600 mg-10 mcg (400 unit) 1 tab PO BID compress.stocking,knee,reg,lrg As directed 15-20 mm HG diaper,brief,adult,disposable (Briefs, Adult-Extra Large) As directed docusate sodium 100 mg PO QAM 90 days fluoxetine (Prozac) 80 mg (2 x 40 mg) PO DAILY guaifenesin 200 Mg/5 ml as needed every four hours for head chest Congestion And Cough.; Contact HCP if not resolved in 3 days or rash develops. ibuprofen 200 mg PO Q4-6H PRN latanoprost 0.005% 0 drps ophthalmic (eye) memantine 10 mg PO BID midodrine 15 mg PO DAILY mirabegron ER (Myrbetriq) 25 mg PO DAILY 90 days omeprazole 20 mg PO DAILY pyridoxine (vitamin B6) 50 mg PO QAM risperidone 1 mg PO BEDTIME [Transport wheelchair As directed] [Walker with seat As directed] HPI Comments Details: Nikki Menjivar is a 69 year old female patient of Dr. Godinez who lives in a alf and is accompanied by one of the care attendants/operations and maintenance supervisor that helps take care of her daily. She has a past medical history of intellectual delay, incontinence, fibroids, amblyobia of left eye, GERD, impulse control disorder, anxiety, and seizure disorder. The patient has a history of developmental delay as well as dementia.? She presents to the office today for follow-up of her lower urinary tract symptoms/urinary incontinence. In discussion with the patient and alf member they deny patient to have had any bothersome urinary issues or concerns since her last office visit here. She reports compliance with 25 mg of Myrbetriq daily. In office urinalysis results were reviewed. PVR 0 mL. Previous workup has included retroperitoneal ultrasound 12/23 noting bilateral kidneys with no nephrolithiasis, lesions, and or hydronephrosis. The bladder is well distended and normal. Pre void bladder volume is approximately 150 mL. Postvoid bladder volume is approximately 30 mL. Patient and care coordinator deny any urination issues at this time. She otherwise offers no other issues or concerns at this time. Plan The patient will maintain her current medication regimen due to its effectiveness in managing her lower urinary tract symptoms. I advised continued monitoring and adherence to treatment, as no adverse symptoms were present. A follow-up is planned in six months to reassess and ensure continued improvement. Consent for ongoing treatment was obtained. Patient was informed and verbally consented to the use of an ambient scribe for clinic note documentation during this visit. Discussion Notes I reviewed with the patient the effectiveness of her current medication in managing her lower urinary tract symptoms. The patient acknowledged improvement and expressed satisfaction with the treatment. I explained the results of her bladder scan and urinalysis, confirming normal function and discussed the absence of any concerning symptoms such as pain, dysuria, or hematuria. We agreed that no changes to her treatment were necessary at this time. The importance of continued adherence to her medication was emphasized, and we agreed to follow up in six months to monitor progress. I reassured the patient that she could reach out if any new symptoms arise. Consent for continued management and follow-up was documented. [facility] Medical History Medicare annual wellness visit, subsequent COVID-19 virus infection Intellectual delay TSH elevation Rash Screening for osteoporosis COVID-19 vaccine series completed Incontinence Increased frequency of urination Preop exam for internal medicine Retinal detachment of left eye due to tear of retina Fibroids Amblyopia of left eye GERD (gastroesophageal reflux disease) Obesity (BMI 35.0-39.9 without comorbidity) Impulse control disorder Cholelithiasis Anxiety Seizure disorder Breast mass, right Surgical History Hx of colonoscopy History of cataract surgery History of pacemaker S/P breast biopsy, right Family History Father Cancer Mother CAD (coronary artery disease) Sister In good health Brother In good health Social History Household Members Other:: [facility] Housing: Other Housing Other:: [facility] Alcohol intake: never Patient Tobacco Use Status: Never used Tobacco e-Cigarette/Vaping Use: Never Used Second Hand Smoke Exposure: No Advance Directives Date on File: 05/04/21 service: No Current occupational status: disabled Cognitive needs: Yes Hearing needs: No Vision needs: Yes Review of Systems Const Unobtainable due to mental condition Physical Exam Const General: cooperative, comfortable, no acute distress, well developed, alert and awake Nutritional Appearance: overweight Orientation/consciousness: oriented to person Limitations: wheelchair HEENT Head: Yes normal to inspection, Yes normocephalic and Yes atraumatic Neck Neck: Yes normal visual inspection and Yes trachea midline Chest Chest palpation & inspection: normal inspection of the chest GI Inspection: Yes normal to inspection General: Yes no CVA tenderness Back/Spine/Pelvis Back: no CVA tenderness Neuro General: oriented to person Psych Appearance: well kempt Speech and movement: Slowed speech present (Psych) and Slowed movement present (Neuro) Attitude: cooperative Insight: Limited insight present (Psych) Judgement: Limited judgement present (Psych) Office Procedures Post Void Residual Post Residual Void Post Void Residual (PVR): 0 [id number] Void Residual by ultrasound Results AMB Urinalysis, Automated UA Leukoctes 500 Jinny/uL Last Edit by Nataly Ibarra on 12/16/24 11:59 UA Nitrite Last Edit by Nataly Ibarra on 12/16/24 11:59 UA Urobilinogen 0.2 mg/dL Last Edit by Nataly Ibarra on 12/16/24 11:59 UA Protein 0 mg/dL Last Edit by Harleyyce Stacey on 12/16/24 11:59 UA pH 6.0 Last Edit by Ceceliae Stacey on 12/16/24 11:59 UA Blood 10 Azar/uL Last Edit by Nataly Ibarra on 12/16/24 11:59 UA Specific [place] 1.015 Last Edit by Nataly Ibarra on 12/16/24 11:59 UA Ketone Negative Last Edit by Nataly Ibarra on 12/16/24 11:59 UA Bilirubin 0 mg/dL Last Edit by Ceceliae Stacey on 12/16/24 11:59 UA Glucose 0 mg/dL Last Edit by Nataly Ibarra on 12/16/24 11:59 Results Reviewed Results Reviewed: Laboratory Last Values Urine pH (Auto) 6.0 12/16/24 11:58 Specific [place] (Auto) 1.015 12/16/24 11:58 Urine Protein (Auto) 0 mg/dL 12/16/24 11:58 Glucose (UA)(Auto) 0 mg/dL 12/16/24 11:58 Urine Ketones (Auto) Negative 12/16/24 11:58 Urine Blood (Auto) 10 Azar/uL 12/16/24 11:58 Urine Bilirubin (Auto) 0 mg/dL 12/16/24 11:58 Urine Urobilinogen (Auto) 0.2 mg/dL 12/16/24 11:58 Leukocyte Esterase (Auto) 500 Jinny/uL 12/16/24 11:58 Assessment & Plan Assessment & Plan (1) Incomplete bladder emptying: Code(s): R33.9 - Retention of urine, unspecified Category: Medical (2) Urge incontinence: Code(s): N39.41 - Urge incontinence Category: Medical Plan In office urinalysis results reviewed with the patient and staff member today; as noted above. PVR 0 mL. Continue Myrbetriq as discussed and prescribed; refill provided Continue with prompt voiding, scheduled toileting, and time voiding. Educated, encouraged, and stressed the importance of drinking plenty of water daily. Follow-up in 6 months with PVR; or sooner with any issues, concerns, and or questions. Orders: Orders AMB Post Void Residual by ultrasound 12/16/24 N39.41 - Urge incontinence AMB Urinalysis Automated 12/16/24 Z13.9 - Encounter for screening, unspecified Patient Instructions: The patient had an opportunity to ask questions regarding the treatment plan. All questions were answered. Physical exam, labs, and imaging were discussed and reviewed in detail. As well as risks, benefits, and discussion of treatment choices. No major barriers to understanding were identified. The patient expressed understanding and agreement with the above treatment plan. The patient was made aware they should contact our office by phone for worsening of their current condition, the appearance of new symptoms, or with any questions or concerns. Compliance is encouraged with any medications and follow up testing that is ordered. It is a privilege to be allowed the opportunity to participate in? your urological care.? Again, if you have any questions or concerns If you have any questions or concerns please do not hesitate to contact me. The office is [phone]. This note is constructed using voice recognition software. While every effort has been made to ensure accuracy city jailer errors may have been included. Yours sincerely, TRAV Clayton Coding Level of Care Code Est Pt Level 3 (26806) Complex EM visit Add On G2211 Diagnoses Incomplete bladder emptying R33.9 Urge incontinence N39.41 CPT Codes Post Residual Void - PVR CPT Code: 25625-Cldk Void Residual by ultrasound ([id number])
--- OUTSIDE RECORDS SUMMARY | 2024-12-16 11:02 | XMS_ITS | Clinical Summary ---
Author Organization [facility] Address [address] [place] [address] Care Team Providers Care Customer Records Division Supervisor Name Role Phone Angela Godinez MD Primary Care Provider [phone] Surgical History Surgery Date Site/Laterality Comments OTHER SURGICAL HISTORY PROCEDURE: ---- OTHER ----; COMMENT: ?deep brain stimulation BREAST BIOPSY PROCEDURE: BX BREAST; PERC NEEDLE CORE W/IMAG GUID; COMMENT: lt-neg BREAST BIOPSY 06/22/2020 Right PROCEDURE: OH BX BREAST W/DEVICE 1ST LESION ULTRASOUND GUID Medical History Medical History Date Comments SSS (sick sinus syndrome) (C MS/HCC V24, CMS/HCC V28) 09/18/2012 DX:SSS (sick sinus syndrome) (HCC) Bradycardia 09/18/2012 DX:Bradycardia Seizure disorder (CMS/HCC V2 4, CMS/HCC V28) 09/18/2012 DX:Seizure disorder (HCC) Psychiatric disorder 09/18/2012 DX:Psychiat charu disorder Idiopathic osteoporosis 09/18/2012 DX:Idiop athic osteoporosis Family History Medical History Relation Name Comments Breast cancer Neg Hx Colon cancer Neg Hx Ovarian cancer Neg Hx Uterine cancer Neg Hx Social History Tobacco Use Types Packs/Day Years Used Date Smoking Tobacco: Never Smokeless Tobacco: Never Alcohol Use Standard Drinks/Week Comments No 0 (1 standard drink = 0.6 oz pur e alcohol) Comments Unknown Sex and Gender Information Value Date Recorded Sex Assigned at Not on file Legal Sex Female 8:58 PM EST Gender Identity Not on file Sexual Orientation Not on file Obstetrics History Last Filed Vital Signs Vital Sign Reading Time Taken Comments Blood Pressure 115/78 05/07/2023 9:48 AM EDT Pulse 67 05/07/2023 9:48 AM EDT Temperature - - Respiratory Rate - - Oxygen Saturation - - Inhaled Oxygen Concentration - - Weight 105 kg (232 lb 3.2 oz) 05/07/2023 9:48 AM EDT Height 167.6 cm (5' 6 ) 05/07/2023 9:48 AM EDT Body Mass Index 37.48 05/07/2023 9:48 AM EDT Plan of Treatment Upcoming Encounters Date Type Department Care Team ([facility] st Contact Info) Description 02/16/2025 10:20 AM EDT Appointment Radiology Department [address] [address] Health Maintenance Due Date Last Done Comments DTaP,Tdap,and Td Vaccines (1 - Tdap) 1973 Pneumococcal Vaccine: 50+ Years (1 of 1 - PCV) 2004 Zoster Vaccines (1 of 2) 2004 Colorectal Cancer Screening: Colonoscopy 08/10/2022 Depression Screening 08/10/2022 Falls Risk Assessment 08/10/2022 Hepatitis C Screening 08/10/2022 Osteoporosis Screening (Bone Density Screening) 08/10/2022 Social Influencers of Health Screening 08/10/2022 COVID-19 Vaccine ( - season) 2024 Influenza Vaccine (Season Ended) 2025 Breast Cancer Screening 02/02/2026 02/03/20 24, 02/03/2024, 05/29/2022, Additional history exists RSV Immunization Adult Patients (1 - 1-dose 75+ series) 2029 HIB Vaccines Aged Out No longer eligi ble based on patient's age to complete this topic HPV Vaccines Aged Out No longer eligi ble based on patient's age to complete this topic Hepatitis A Vaccines Aged Out No long er eligible based on patient's age to complete this topic Hepatitis B Vaccines Aged Out No long er eligible based on patient's age to complete this topic IPV Vaccines Aged Out No longer eligi ble based on patient's age to complete this topic MMR Vaccines Aged Out No longer eligi ble based on patient's age to complete this topic Meningococcal ACWY Vaccine Aged Out N o longer eligible based on patient's age to complete this topic Meningococcal B Vaccine Aged Out No l onger eligible based on patient's age to complete this topic RSV Immunization Patients Under 20 months Aged Out No longer eligible based on patient's age to complete this topic Varicella Vaccines Aged Out No longer eligible based on patient's age to complete this topic Procedures Procedure Name Priority Date/Time Associated Diagnosis Comments SCREENING MAMMOGRAPHY BI 2-VIEW BREAST INC CAD Routine 02/03/2024 11:03 AM EDT Encounter for screening mammogram for malignant neoplasm of breast from Last 3 Months or Most Recently Relevant to Health Maintenance Results * SCREENING MAMMOGRAPHY BI 2-VIEW BREAST INC CAD (02/03/2024 11:03 AM EDT) Anatomical Region Laterality Modality Radiographic Aubree ging 05/29/2022 4:37 PM EDT Narrative 02/03/2024 6:42 PM EDT This is a summary report. The complete report is available in the patient's medical record. If you cannot access the medical record, please contact the sending organization for a detailed fax or copy. BILATERAL 3D DIGITAL SCREENING MAMMOGRAM History: Routine screening. ??No current breast complaints. Comparison: Multiple priors dating back to 04/28/2020 Technique: Bilateral full-field digital 3D mammography was performed using standard CC and MLO projections, left breast exaggerated CC CAD was used to evaluate this mammogram. Findings: Density: ??There are scattered areas of fibroglandular density-B RIGHT: No suspicious masses, groups of microcalcification or areas of architectural distortion identified. Stable typically benign parenchymal asymmetries LEFT: No suspicious masses, groups of microcalcifications or areas of architectural distortion identified. Stable typically benign parenchymal asymmetries IMPRESSION: : 1. ??No mammographic evidence of malignancy. BI-RADS Category 2 benign findings Recommendation: Routine annual screening mammography is recommended Procedure Note José Mgiuel Guerra MD - 06/16/2024 This is a summary report. The complete report is available in thepatient's medical record. If you cannot access the medical record, pleasecontact the sending organization for a detailed fax or copy. BILATERAL 3D DIGITAL SCREENING MAMMOGRAM History: Routine screening. No current breast complaints. Comparison: Multiple priors dating back to 04/28/2020 Technique: Bilateral full-field digital 3D mammography was performed usingstandard CC and MLO projections, left breast exaggerated CC CAD was used to evaluate this mammogram. Findings: Density: There are scattered areas of fibroglandular density-B RIGHT: No suspicious masses, groups of microcalcification or areas ofarchitectural distortion identified. Stable typically benign parenchymalasymmetries LEFT: No suspicious masses, groups of microcalcifications or areas ofarchitectural distortion identified. Stable typically benign parenchymalasymmetries IMPRESSION: : 1. No mammographic evidence of malignancy. BI-RADS Category 2 benign findings Recommendation: Routine annual screening mammography is recommended Angela Godinez MD IMG XR PROCEDURES Final Result from Last 3 Months or Most Recently Relevant to Health Maintenance Care Teams Customer Records Division Supervisor Relationship Specialty Start Date End Date Angela Godinez MD [address] [place] [address] [address] [facility] [place] [address] PCP - General 09/01/10
--- OUTSIDE RECORDS SUMMARY | 2024-12-16 11:02 | XMS_ITS | Clinical Summary ---
Author Organization [facility] Address [address] [place] [address] Phone Care Team Providers Care Automatic Tire Tester Name Role Phone Angela Godinez MD Primary Care Provider [phone] Allergies No known active allergies Medications benztropine (COGENTIN) 1 MG/ML injection 0.5 mg 1 (one) time each day Active Calcium Carbonate-Vitam in D 600-200 MG-UNIT capsule Take 1 capsule by mouth 2 (two) times a day Active docusate sodium (COLACE) 100 MG capsule Take 1 capsule by mouth 1 (one) time each day Active FLUoxetine (PROzac) 40 MG capsule Take 2 capsules by mouth 1 (one) time each day Active midodrine (PROAMATINE) 10 MG tablet Take 1 tablet by mouth 1 (one) time each day in the morning 4 Active pyridoxine (B-6) 50 MG tablet Take 1 tablet by mouth 1 (one) time each day Active omeprazole (PriLOSEC) [address] capsule Take 1 capsule by mouth 1 (one) time each day 1 Active risperiDONE (RisperDAL) 1 MG tablet Take 1 tablet by mouth 1 (one) time each day 1 Active acetaminophen (TYLENOL) 325 MG tablet Take 650 mg by mouth if needed for mild pain Active Mirabegron ER (Myrbetriq) 25 MG tablet sustained-relea se 24 hour Take 25 mg by mouth 1 (one) time each day in the morning Active latanoprost (XALATAN) 0.005 % ophthalmic solution 1 drop every night Active memantine (NAMENDA) 10 MG tablet Take 10 mg by mouth in the morning and 10 mg at noon and 10 mg in the evening. Active nystatin (MYCOSTATIN) powder Apply topically 3 (three) times a day Active aspirin (ST JOO) 81 MG EC tablet Take 81 mg by mouth 1 (one) time each day Active bacitracin ointment Apply topically if needed for wound care Active guaiFENesin (ROBITUSSIN) 100 MG/5ML liquid Take 200 mg by mouth if needed for cough Active Active Problems Problem Noted Date Diagnosed Date Sick sinus syndrome 07/02/2022 Anxiety state 06/07/2021 Low blood pressure 06/07/2021 Bradycardia 09/18/2012 Overview (07/10/2022): EKG reveals sinus bradycardia at 38 BPM, pt is asymptomatic Idiopathic osteoporosis 09/18/2012 Mental disorder 09/18/2012 Seizure disorder 09/18/2012 Social History Tobacco Use Types Packs/Day Years Used Date Smoking Tobacco: Never Smokeless Tobacco: Never Tobacco Cessation:Counseling Given: Not Answered Alcohol Use Standard Drinks/Week Comments No 0 (1 standard drink = 0.6 oz pur e alcohol) Comments Unknown Sex and Gender Information Value Date Recorded Sex Assigned at Not on file Legal Sex Female 5:08 PM EST Gender Identity Not on file Sexual Orientation Not on file Last Filed Vital Signs Vital Sign Reading Time Taken Comments Blood Pressure 100/80 07/10/2022 4:35 PM EST Pulse 62 07/10/2022 4:35 PM EST Temperature - - Respiratory Rate - - Oxygen Saturation - - Inhaled Oxygen Concentration - - Weight 95.7 kg (211 lb) 07/10/2022 4:35 PM EST Height 165.1 cm (5' 5 ) 12/01/2019 12:00 PM EDT Body Mass Index 35.11 12/01/2019 12:00 PM EDT Plan of Treatment Health Maintenance Due Date Last Done Comments Breast Cancer Screening 1955 Pneumococcal Vaccine: 50+ Ye ars (1 of 2 - PCV) 1973 Colorectal Cancer Screening: Annual FOBT 2003 Colorectal Cancer Screening: Colonoscopy 2003 Colorectal Cancer Screening: Sigmoidoscopy 2003 Influenza Vaccine (Season Ended) 2025 Hepatitis B Vaccine Aged Out No longe r eligible based on patient's age to complete this topic Insurance Medicare Medicaid [place] Medicare Medicaid [place] Care Teams Automatic Tire Tester Relationship Specialty Start Date End Date Angela Godinez MD [address] [place], [place] PCP - General 09/11/20
== END 2024-12-16 10:43 | disposition home or self-care (01) ==
LOC: HO.HUSH 09:37
PROVIDERS: PCP Internal Medicine; Visit Provider Nurse Practitioner Family
DX: Z13.9 Encounter for screening, unspecified (principal)

== ENCOUNTER → 2024-12-16 09:37 | Outpatient (BNVA) | payer MEDICARE, MEDICAID, SELFPAY | PROVIDERS: PCP Internal Medicine; Visit Provider Nurse Practitioner Family | DX: R33.9 Retention of urine, unspecified (principal); N39.41 Urge incontinence | CPT/HCPCS: 51798; 81003; 99212 ==

== ENCOUNTER 2025-01-27 15:58 | Outpatient (REF) | payer MEDICARE, MEDICAID, SELFPAY ==
--- OUTSIDE RECORDS SUMMARY | 2025-01-27 16:02 | XMS_ITS | Clinical Summary ---
Author Organization [facility] Address [address] [place] [address] Phone Care Team Providers Care Mold Closer Name Role Phone Angela Godinez MD Primary Care Provider [phone] Allergies No known active allergies Medications benztropine [...] Last Done Comments Breast Cancer Screening 1954 Colorectal Cancer Screening: Annual FOBT 2003 Colorectal Cancer Screening: Colonoscopy 2003 Colorectal Cancer Screening: Sigmoidoscopy 2003 Pneumococcal Vaccine: 50+ Ye ars (1 of 1 - PCV) 2004 Influenza Vaccine (Season Ended) 2025 Hepatitis B Vaccine Aged Out No longe r eligible based on patient's age to complete this topic Insurance Medicare Medicaid [place] Medicare [place] Care Teams Mold Closer Relationship Specialty Start Date End Date Angela Godinez MD [address] [place], [place] PCP - General 09/11/20
== END 2025-01-27 15:59 | disposition home or self-care (01) ==
LOC: HO.LAB 15:58
PROVIDERS: PCP Internal Medicine; Visit Provider Internal Medicine Nephrology
DX: Z13.89 Encounter for screening for other disorder (principal)
CPT/HCPCS: 36415; 80051; 82310; 82565; 84520

== ENCOUNTER 2025-01-28 10:14 | Outpatient (AMB) | payer MEDICARE, MEDICAID, SELFPAY ==
--- NOTE | 2025-01-28 10:24 | HO.NEPHOV_ITS ---
Vital Signs 01/28/25 10:26 Height 5 ft 6 in BP 122/80 Blood Pressure Location Rt brachial Position Sitting Pulse 60 Pulse Source Pulse Oximeter Pulse Oximetry (%) 94 Oxygen Delivery Method Room Air Intake Visit Reasons: NO SHOW 11/24/24-Conf Glass Vial Bending Conveyor Feeder Required: No Accompanied by: Other Relationship Allergies No Known Allergies [No Known Allergies*] Allergy (Verified 01/28/25 10:25) HPI Comments Details: I would the privilege of seeing Nikki in follow-up for history of orthostatic hypotension. She has gained some weight. She denies any dizziness, palpitation, chest pain, nausea, vomiting, diarrhea. She has no urinary symptoms. She has no fever, suprapubic pain or any other systemic symptoms at the time of this office visit [facility] Medical History Medicare annual wellness visit, subsequent COVID-19 virus infection Intellectual delay TSH elevation Rash Screening for osteoporosis COVID-19 vaccine series completed Incontinence Increased frequency of urination Preop exam for internal medicine Retinal detachment of left eye due to tear of retina Fibroids Amblyopia of left eye GERD (gastroesophageal reflux disease) Obesity (BMI 35.0-39.9 without comorbidity) Impulse control disorder Cholelithiasis Anxiety Seizure disorder Breast mass, right Surgical History Hx of colonoscopy History of cataract surgery History of pacemaker S/P breast biopsy, right Family History Father Cancer Mother CAD (coronary artery disease) Sister In good health Brother In good health Social History Household Members Other:: [facility] Housing: Other Housing Other:: Nursing Home Alcohol intake: never Patient Tobacco Use Status: Never used Tobacco e-Cigarette/Vaping Use: Never Used Second Hand Smoke Exposure: No Advance Directives Date on File: 05/04/21 service: No Current occupational status: disabled Cognitive needs: Yes Hearing needs: No Vision needs: Yes Review of Systems Const All systems reviewed & are unremarkable except as noted in HPI and below Physical Exam Vital Signs: Last Vital Signs Pulse 60 01/28/25 10:26 BP 122/80 01/28/25 10:26 Pulse Ox 94 01/28/25 10:26 Oxygen Delivery Method Room Air 01/28/25 10:26 Const General: comfortable and no acute distress Orientation/consciousness: patient oriented x3 HEENT Head: Yes normocephalic Mouth: Normal oral and palatal mucosa present Eyes EOM: EOMs intact bilaterally Neck Neck: Yes supple Resp Auscultation: clear to auscultation bilaterally Cardio Jugular venous distension: no JVD Rate: regular rate GI Palpation (GI): Soft to palpation Auscultation: normal bowel sounds General: Yes no CVA tenderness Back/Spine/Pelvis Back: no CVA tenderness Skin General skin exam: no rashes or lesions noted Neuro General: patient oriented x3 and moves all extremities Extrem General: Yes no pedal edema Results Reviewed Nephrology Results: Hgb 12.8 g/dl (12.0-16.0) 03/31/24 WBC 8.0 X10*3/uL (4.8-10.8) 03/31/24 Plt Count 269 X10*3/uL (160-400) 03/31/24 Sodium 137 mmol/L (135-145) 03/31/24 Potassium 4.3 mmol/L (3.3-5.1) 03/31/24 Chloride 104 mmol/L (96-108) 03/31/24 Carbon Dioxide 26 mmol/L (22-29) 03/31/24 BUN 16 mg/dL (9-16) 03/31/24 Creatinine 0.99 mg/dL (0.5-1.4) 03/31/24 Calcium 10.1 mg/dL (8.4-10.2) 03/31/24 Assessment & Plan Assessment & Plan (1) Orthostasis: Code(s): I95.1 - Orthostatic hypotension Category: Medical Plan Nikki has history of symptomatic orthostatic hypotension which has been treated with midodrine and is under good control. She has no history of hyperkalemia. She is gained some weight. She can continue current dose of midodrine. Her blood pressure is currently at goal. I did not make any medication changes today. She will be seen in the office for continued care. Follow-up given. Orders: Orders Electrolytes 1 Year I95.1 - Orthostatic hypotension Blood Urea Nitrogen 1 Year I95.1 - Orthostatic hypotension Creatinine 1 Year I95.1 - Orthostatic hypotension Coding Level of Care Code Est Pt Level 4 (06459) Diagnoses Orthostasis I95.1
[2025-01-28 10:26] VITALS: BP 122/80; PULSE 60; O2SAT 94
--- OUTSIDE RECORDS SUMMARY | 2025-01-28 10:53 | XMS_ITS | Clinical Summary ---
Author Organization [facility] Address [address] [place] [address] Phone Care Team Providers Care Banking Manager Name Role Phone Angela Godinez MD Primary Care Provider [phone] Allergies No known active allergies Medications benztropine [...] Medicaid [place] Care Teams Banking Manager Relationship Specialty Start Date End Date Angela Godinez MD [address] [place], [place] PCP - General 09/11/20
== END 2025-01-28 10:45 | disposition home or self-care (01) ==
LOC: HO.HKA 10:14
PROVIDERS: PCP Internal Medicine; Visit Provider Internal Medicine Nephrology
DX: I95.1 Orthostatic hypotension (principal)
CPT/HCPCS: 99214

== ENCOUNTER → 2025-01-28 10:14 | Outpatient (BNVA) | payer MEDICARE, MEDICAID, SELFPAY | PROVIDERS: PCP Internal Medicine; Visit Provider Internal Medicine Nephrology | DX: I95.1 Orthostatic hypotension (principal) | CPT/HCPCS: 99212 ==

== ENCOUNTER 2025-04-08 10:28 | Outpatient (AMB) | payer MEDICARE, MEDICAID, SELFPAY ==
--- OUTSIDE RECORDS SUMMARY | 2025-04-08 10:32 | XMS_ITS | Clinical Summary ---
Author Organization [facility] Address [address] [place] [address] Phone Care Team Providers Care Waffle Machine Operator Name Role Phone Angela Godinez MD Primary Care Provider [phone] Allergies No known active allergies Medications benztropine [...] of 1 - PCV) 2004 Influenza Vaccine (#1) 2025 Hepatitis B Vaccine Aged Out No longe r eligible based on patient's age to complete this topic Insurance Medicare Medicaid [place] Medicare [place] Care Teams Waffle Machine Operator Relationship Specialty Start Date End Date Angela Godinez MD [address] [place], [place] PCP - General 09/11/20
--- NOTE | 2025-04-08 10:33 | A.OFFVIS_ITS ---
Vital Signs 04/08/25 10:34 Height 5 ft 6 in Weight 238 lb BMI 38.4 BP 120/74 Blood Pressure Location Rt brachial Position Sitting Pulse 60 Pulse Source Pulse Oximeter Pulse Oximetry (%) 99 Oxygen Delivery Method Room Air Intake Visit Reasons: Follow up Intake Note: Pt presents in office today for a f/u for cognitive function awareness. iron and steel work supervisor states Memory is declining, as well as mobility and incontinence issues and pt is unaware. Pt not oriented to current time but can recall past events. Logistics Technician Required: No Accompanied by: CONSUMER MARKETING ANALYST Allergies No Known Allergies (No Known Allergies*) Allergy (Verified 04/08/25 10:42) HPI Comments Details: 69 y/o right-handed female with developmental delay , ? seizure disorder (well controlled) currently residing in a [facility] comes for follow up of cognitive issues. she is accompanied by the supervisor sign shop Margo Quiroz who helps with history April 2022 CT brain- showed atrophy, vonnie basal ganglia lacunar infarcts July 2022, US/US carotid duplex BI * RIGHT: Minimal, non-hemodynamically significant stenosis of the proximal right internal carotid artery corresponding to a 0-49%stenosis by velocity criteria. * LEFT: Minimal, non-hemodynamically significant stenosis of the proximal left internal carotid artery corresponding to a 0-49% stenosisby velocity criteria. Patient continues to do well on scheduled Namenda. No change in speech. She always had limited speech .she answers in single words and has trouble comprehending. Her cognition is gradually declining She has chronic dysphagia. Staff may notice right hand rest tremor- started after her new psychiatrist stopped the cogentin. She is needing more physical assist PCP has recently ordered a hospital bed for mobility. Now has a power lift recliner as pt was having difficulty getting out of the traditional recliner. Posture is more hunched, stooped. No recent orthostatic lightheadedness, falls, or seizure like activity since pacemaker implantation several yrs ago. Walking slower. She does not like to walk in darker or uneven surfaces. No falls. Uses a walker, and w/c for longer distances- at the mall and the park. She is sleeping more- taking more naps- dozing off. Pt reports she sees a train but there is no train near by- but disease case manager rn notes that [place]. She is incontinent of urine, primarily at night, usually continent during the day with scheduled toileting. REPLACED BY [facility] Medical History Medicare annual wellness visit, subsequent COVID-19 virus infection Intellectual delay TSH elevation Rash Screening for osteoporosis COVID-19 vaccine series completed Incontinence Increased frequency of urination Preop exam for internal medicine Retinal detachment of left eye due to tear of retina Fibroids Amblyopia of left eye GERD (gastroesophageal reflux disease) Obesity (BMI 35.0-39.9 without comorbidity) Impulse control disorder Cholelithiasis Anxiety Seizure disorder Breast mass, right Surgical History Hx of colonoscopy History of cataract surgery History of pacemaker S/P breast biopsy, right Family History Father Cancer Mother CAD (coronary artery disease) Sister In good health Brother In good health Social History Household Members Other:: RESIDENTIAL Housing: Other Housing Other:: Intermediate Alcohol intake: never Patient Tobacco Use Status: Never used Tobacco e-Cigarette/Vaping Use: Never Used Second Hand Smoke Exposure: No Advance Directives Date on File: 05/04/21 service: No Current occupational status: disabled Cognitive needs: Yes Hearing needs: No Vision needs: Yes Physical Exam Vital Signs: Last Vital Signs Pulse 60 04/08/25 10:34 BP 120/74 04/08/25 10:34 Pulse Ox 99 04/08/25 10:34 Oxygen Delivery Method Room Air 04/08/25 10:34 BMI result Body Mass Index 38.4 Neuro Other: Alert, responding with simple appropriate responses to simple questions. She identifies for disease case manager rn, who she has known for quite some time as ?she? Stooped posture Mild intermittent right 1st finger rest tremor Right greater than left upper extremity rigidity Decreased fine finger movements Patient unable to follow commands to perform foot taps Slow to stand, stooped, steady gait with walker Limited exam due to her baseline intellectual delay Cranial nerves: Yes Facial sensation intact/muscles of mastication intact, Yes Nystagmus not present, Yes Normal facial strength present, Yes Midline tongue present and Yes Other cranial nerve findings present (left eye deviated laterally , incongruant eye movements ) Results Reviewed Results Reviewed: CT/CT head/brain wo con IMPRESSION: 1. No acute intracranial process seen. ? 2. There is bibasal ganglia lacunar infarct slightly greater on the right side. Mild cerebral volume loss with chronic small vessel ischemic changes. ? Assessment & Plan Assessment & Plan (1) Cognitive and behavioral changes: Comment: ? dementia Code(s): R41.89 - Other symptoms and signs involving cognitive functions and awareness; R46.89 - Other symptoms and signs involving appearance and behavior Category: Medical (2) Gait instability: Code(s): R26.81 - Unsteadiness on feet Category: Medical (3) Tremor: Comment: Per [facility] staff, started after patient stopped Cogentin. Likely multifactorial, chronic risperidone use, as well as known history of bilateral basal ganglia lacunar infarcts Code(s): R25.1 - Tremor, unspecified Category: Medical (4) Rigidity: Code(s): R29.898 - Other symptoms and signs involving the musculoskeletal system Category: Medical (5) CVA (cerebral vascular accident): Comment: April 2022 There is bibasal ganglia lacunar infarct slightly greater on the right side. Mild cerebral volume loss with chronic small vessel ischemic changes. Code(s): I63.9 - Cerebral infarction, unspecified Category: Medical Qualifiers: CVA mechanism: unspecified Qualified Code(s): I63.9 - Cerebral in farction, unspecified Plan Continue namenda 10mg bid Home PT eval and treat for tremor, rigidity, bradykinesia, mobility, transfer, and gait difficulties in setting of CVA * Patient is homebound due to intellectual disability, impaired gait, and requires the assistance of at least 1 person to leave her home safely Follow-up in 6 months or sooner as needed Orders: Referrals [facility] Referral I63.9 - Cerebral infarction, un specified, R25.1 - Tremor, unspecified, R26.81 - Unsteadiness on feet, R29.898 - Other symptoms and signs involving the musculoskeletal system Coding Level of Care Code Est Pt Level 4 (30749) Diagnoses Cognitive and behavioral changes R41.89; R46.89 Gait instability R26.81 Tremor R25.1 Rigidity R29.898 Cerebrovascular accident (CVA), unspecified mechanism I63.9 CVA mechanism: unspecified
--- OUTSIDE RECORDS SUMMARY | 2025-04-08 10:33 | XMS_ITS | Clinical Summary ---
Author Organization [facility] [address] [place] [address] [address] [place], [place] Phone Care Team Providers Care Drawing Instructor Name Role Phone Angela Godinez MD Primary Care Provider Encounters Date Type Department Care Team Description 02/16/2025 10:19 AM EDT - 02/16/2025 11:59 PM EDT Hospital Encounter Radiology Department [address] [phone] Encounter for screening mammogram for breast cancer Discharge Disposition: Home or Self Care from Last 3 Months Surgical History Surgery Date Site/Laterality Comments OTHER SURGICAL HISTORY PROCEDURE: ---- OTHER ----; COMMENT: ?deep brain stimulation BREAST BIOPSY PROCEDURE: BX BREAST; PERC NEEDLE CORE W/IMAG GUID; COMMENT: lt-neg BREAST BIOPSY 06/22/2020 Right PROCEDURE: MN BX BREAST W/DEVICE 1ST LESION ULTRASOUND GUID [...] Sexual Orientation Not on file Obstetrics History Para Term AB IAB SAB Ectopic Multiple Livin g Live Births 0 0 0 Last Filed Vital Signs Vital Sign Reading [...] 05/07/2023 9:48 AM EDT Plan of Treatment Health Maintenance Due Date Last Done Comments Zoster Vaccines (1 of 2) 2004 Colorectal Cancer Screening: Colonoscopy 08/10/2022 Falls Risk Assessment 08/10/2022 Hepatitis C Screening 08/10/2022 Medicare Annual Wellness Visit 08/10/2022 Osteoporosis Screening (Bone Density Screening) 08/10/2022 Social Influencers of Health Screening 08/10/2022 COVID-19 Vaccine ( season) 2024 10/20/2020, 09/29/2020 Depression Screening 09/01/2024 Influenza Vaccine (#1) 2025 , 06/29/2021, 06/15/2019, Additional history exists Breast Cancer Screening 02/16/2027 02/17/20 25, 02/03/2024, 02/03/2024, Additional history exists DTaP,Tdap,and Td Vaccines (2 - Td or Tdap) 02/19/2027 02/19/2017 RSV Immunization Adult Patients (1 - 1-dose 75+ series) 2029 Pneumococcal Vaccine: 50+ Years Completed 09/20/2022 HIB Vaccines Aged Out No longer eligi [...] Procedure Name Priority Date/Time Associated Diagnosis Comments MG MAMMO DIGITAL SCREENING W JOVANI BILAT Routine 02/16/2025 10:47 AM EDT Encounter for screening mammogram for breast cancer from Last 3 Months Results * MG Mammo Digital Screening w Jovani bilat (02/16/2025 10:47 AM EDT) Anatomical Region Laterality Modality Breast Bilateral Mammography 02/16/2025 2:07 PM EDT Impressions 02/16/2025 2:19 PM EDT No mammographic evidence for malignancy. BI-RADS CATEGORY: 1 - NEGATIVE RECOMMENDATION: Screening bilateral mammogram is recommended in 1 year. Mammo Location: [facility], [address] [place] [address], [id number], . -------- FINAL REPORT -------- Dictated By: Brea Hernandez Dictated Date: 02/16/2025 14:07 ET Assigned Physician: Brea Hernandez Reviewed and Electronically Signed By: Brea Hernandez Signed Date: 02/16/2025 14:19 ET Workstation ID: [id number] Transcribed By: Self Edit Transcribed Date: 02/16/2025 14:07 ET Narrative 02/16/2025 2:19 PM EDT Bilateral screening mammogram. CLINICAL: 69 years old, Female, routine annual exam. COMPARISON: Prior mammograms, latest from 02/03/2024. TECHNIQUE: Bilateral MLO and CC views were obtained digitally with 2-D C views and 3-D mammogram (digital breast tomosynthesis). Examination was limited due to patient's physical and mental status. Computer-aided detection was utilized in evaluation of this exam (CAD). FINDINGS: There is no evidence of suspicious mass or architectural distortion. No worrisome calcifications are evident. There has been no significant change from prior exam(s). BREAST DENSITY: B - There are scattered areas of fibroglandular density. Procedure Note Brea Hernandez MD - 02/16/2025 Bilateral screening mammogram. CLINICAL: 69 years old, Female, routine annual exam. COMPARISON: Prior mammograms, latest from 02/03/2024. TECHNIQUE: Bilateral MLO and CC views were obtained digitally with 2-D Cviews and 3-D mammogram (digital breast tomosynthesis). Examination waslimited due to patient's physical and mental status. Computer-aideddetection was utilized in evaluation of this exam (CAD). FINDINGS: There is no evidence of suspicious mass or architectural distortion. Noworrisome calcifications are evident. There has been no significantchange from prior exam(s). BREAST DENSITY: B - There are scattered areas of fibroglandular density. IMPRESSION: No mammographic evidence for malignancy. BI-RADS CATEGORY: 1 - NEGATIVE RECOMMENDATION: Screening bilateral mammogram is recommended in 1 year. Mammo Location: [facility], [address] [place] [address], [id number], . -------- FINAL REPORT -------- Dictated By: Brea Hernandez Dictated Date: 02/16/2025 14:07 ET Assigned Physician: Brea Hernandez Reviewed and Electronically Signed By: Brea Hernandez Signed Date: 02/16/2025 14:19 ET Workstation ID: [id number] Transcribed By: Self Edit Transcribed Date: 02/16/2025 14:07 ET Angela Godinez MD IMG BI PROCEDURES Final Result from Last 3 Months Insurance [place]ICARE [place] Care Teams Drawing Instructor Relationship Specialty Start Date End Date Angela Godinez MD [address] [place] [address] [address] [facility] [place] [address] PCP - General 09/01/10
[2025-04-08 10:34] VITALS: BP 120/74; PULSE 60; O2SAT 99; BMI 38.4
== END 2025-04-08 11:24 | disposition home or self-care (01) ==
LOC: HO.HSMS 10:28
PROVIDERS: PCP Internal Medicine; Visit Provider Nurse Practitioner Family
DX: R41.89 Other symptoms and signs involving cognitive functions and awareness (principal); R46.89 Other symptoms and signs involving appearance and behavior; R26.81 Unsteadiness on feet; R25.1 Tremor, unspecified; R29.898 Other symptoms and signs involving the musculoskeletal system; I69.398 Other sequelae of cerebral infarction
CPT/HCPCS: 99214

== ENCOUNTER → 2025-04-08 10:28 | Outpatient (BNVA) | payer MEDICARE, MEDICAID, SELFPAY | PROVIDERS: PCP Internal Medicine; Visit Provider Nurse Practitioner Family | DX: R41.89 Other symptoms and signs involving cognitive functions and awareness (principal); R46.89 Other symptoms and signs involving appearance and behavior; R26.81 Unsteadiness on feet; R25.1 Tremor, unspecified; R29.898 Other symptoms and signs involving the musculoskeletal system; Z86.73 Personal history of transient ischemic attack (TIA), and cerebral infarction without residual deficits | CPT/HCPCS: 99212 ==

== ENCOUNTER 2025-05-26 14:46 | Outpatient (AMB) | payer MEDICARE, MEDICAID, SELFPAY ==
[2025-05-26 14:51] VITALS: BP 122/70; PULSE 60; RESP 18; TEMP 37.1; O2SAT 97; BMI 38.8
--- NOTE | 2025-05-26 14:59 | A.OFFVIS_ITS ---
Intake Vital Signs 05/26/25 14:51 05/26/25 15:10 Height 5 ft 6 in Weight 240 lb 4.862 oz BMI 38.8 38.8 BP 122/70 Blood Pressure Location Lt brachial Position Sitting Respiration 18 Pulse 60 Pulse Source Pulse Oximeter Temp 98.7 F Temp Source Oral Pulse Oximetry (%) 97 Oxygen Delivery Method Room Air Intake Visit Reasons: AWV Sleeve Machine Tender Required: No Accompanied by: Care Provider Allergies No Known Allergies (No Known Allergies*) Allergy (Verified 05/28/25 19:30) Medication List - Last Reconciled 05/28/25 by MICAELA Bailey acetaminophen (Tylenol) 650 mg (2 x 325 mg) PO Q6H amoxicillin-pot clavulanate 875-125 mg 1 tab PO BID 7 days aspirin (Adult Low Dose Aspirin) 81 mg PO DAILY aspirin (Ecotrin Low Strength) 81 mg PO DAILY bacitracin 1 appl topical Q8H brimonidine 0.2% 1 drp ophthalmic (eye) BID calcium carbonate-vitamin D3 600 mg-10 mcg (400 unit) 1 tab PO BID compress.stocking,knee,reg,lrg As directed 15-20 mm HG diaper,brief,adult,disposable (Briefs, Adult-Extra Large) As directed docusate sodium (Colace) 100 mg PO DAILY docusate sodium 100 mg PO QAM 90 days dorzolamide-timolol 22.3-6.8 mg/mL (Cosopt) 1 drp ophthalmic (eye) BID fluoxetine (Prozac) 80 mg (2 x 40 mg) PO DAILY guaifenesin 200 mg PO Q4H PRN hospital bed (bed,hospital) As directed ibuprofen 200 mg PO Q4-6H PRN latanoprost 0.005% 1 drp ophthalmic (eye) BEDTIME memantine 10 mg PO BID midodrine 15 mg PO DAILY mirabegron ER (Myrbetriq) 25 mg PO DAILY 90 days omeprazole 20 mg PO DAILY pyridoxine (vitamin B6) 50 mg PO QAM risperidone 1 mg PO QAM [Transport wheelchair As directed] [Walker with seat As directed] HPI AWV HPI Details The patient is presenting for Medicare annual evaluation. She is accompanied by senior living staff, who assisted the patient with some of the questions Dentist:up to date Eye: up to date Snellen: Right: Left: Corrected vision: yes, glasses STI screening: Colonoscopy: 2020 Pap Smer: aged out mammogram: 2023 PHQ-9: Flu: reports that she take this sometimes COVID: x3 Tdap:2017 Diet:regular Exercise:Reports that she get few minutes walking daily [place] of care was reviewed and updated today The patient has a healthcare proxy in place on file; they were provided with the MOLST form and instructed to complete this as soon as possible The patient noted to have boggy, erythematous turbinates and purulent drainage in bilateral nasal passages. Augmentin 875-125 mg 1 tab b.i.d. x7 days ordered. The patient is wheelchair-bound in office, and it was reported that she uses walker for short distance. HPI Comments History of Present Illness Details reviewed past medical history- yes reviewed surgical / hospitalization history- yes reviewed current medications- yes reviewed family history- yes home safety throw rugs?no grab bars?yes-for the bathroom, has the ramps for the house and she has a hospital bed raised toilet seat? yes working smoke detectors? yes activities of daily living difficulty bathing or showering? no-just needs prompting difficulty dressing? yes, she need assistance difficulty using the toilet? no difficulty getting in and out of bed? no difficulty walking? yes-needs a walker, but only go short distance receives help from other person's with any of the above tasks? Yes instrumental activities of daily living uses telephone - needs help gets to place out of walking distance-yes go shopping for groceries- yes repairs own meals-yes does own minor home maintenance- yes does own laundry- yes does own housework- yes manages own money- yes-staff currently takes medication-yes end of life planning discussed advanced directives- yes advanced directives on file? No discussed wishes expressed in advanced directives. fall risk have you had any falls with injuries in the past year? No have you had 2 or more falls in the past year? No fall risk assessment: Yes [facility] Medical History Rigidity Medicare annual wellness visit, subsequent COVID-19 virus infection Intellectual delay TSH elevation Rash Screening for osteoporosis COVID-19 vaccine series completed Incontinence Increased frequency of urination Preop exam for internal medicine Retinal detachment of left eye due to tear of retina Fibroids Amblyopia of left eye GERD (gastroesophageal reflux disease) Obesity (BMI 35.0-39.9 without comorbidity) Impulse control disorder Cholelithiasis Anxiety Seizure disorder Breast mass, right Surgical History Hx of colonoscopy History of cataract surgery History of pacemaker S/P breast biopsy, right Family History Father Cancer Mother CAD (coronary artery disease) Sister In good health Brother In good health Social History Household Members Other:: [facility] Housing: Other Housing Other:: Nursing Home Alcohol intake: never Patient Tobacco Use Status: Never used Tobacco e-Cigarette/Vaping Use: Never Used Second Hand Smoke Exposure: No Advance Directives Date on File: 05/04/21 service: No Current occupational status: disabled Cognitive needs: Yes Hearing needs: No Vision needs: Yes Questionnaire Medicare Wellness Checkup [age] What gender do you identify with?: female During the past 4 weeks, how much have you been bothered by emotional problems such as feeling anxious, depressed, irritable, sad or downhearted, and blue?: not at all During the past 4 weeks, has your physical & emotional health limited your social activities with family, friends, neighbors, or groups?: not at all During the past 4 weeks, how much bodily pain have you generally had?: no pain During the past 4 weeks, was someone available to help you if you needed & wanted help?: yes, as much as I wanted During the past 4 weeks, what was the hardest physical activity you could do for at least 2 minutes?: light Can you get to places out of walking distance without help? (For eg., can you travel alone on buses, taxis or drive your car?): No Can you go shopping for groceries or clothes without someone's help?: No Can you prepare your own meals?: No Can you do your housework without help?: No Because of any health problems, do you need the help of another person with your personal care needs such as eating, bathing, dressing or getting around the house?: Yes Can you handle your own money without help?: No During the past 4 weeks, how would you rate your health in general?: very good During the past 4 weeks how have things been going for you?: pretty well Are you having difficulties driving your car?: not applicable, I don't use a car Do you always fasten your seat belt when you are in a car?: yes, usually During past 4 weeks, have you been bothered by the following: never: Falling or dizzy when standing up, Sexual problems?, Trouble eating well?, Teeth or denture problems? and Problems using the telephone? and sometimes: Tiredness or fatigue? Have you fallen 2 or more times in the past year?: No Are you afraid of falling?: No Are you a smoker?: no During the past 4 weeks, how many drinks of wine, beer, or other alcoholic beverages did you have?: no alcohol at all Do you exercise for about 20 minutes 3 or more times a week?: no, I usually do not exercise this much Have you been given information to help with the following?: yes: Hazards in your house that might hurt you? and yes: Keeping track of your medications? How often do you have trouble taking medicines the way you have been told to michelle e them?: I always take medicine as prescribed How confident are you that you can control & manage most of your health problems?: very confident What is your race?: White Mini Mental State Exam (MMSE) Orientation Where are we (state) (county) (town or city) (hospital) (floor)?: state and county Score Score: 2 Activity of Daily Living Bathing - sponge bath, tub bath or shower: receives help in bathing only one body part (such as back or leg) (Need cues/reminders) Dressing - getting clothes from closets & drawers, including inner/outer garments & fasteners.: gets clothes & gets dressed without help, except for help tying shoes (Cues/reminders) Toileting - going to the 'toilet room' for urine/bowel elimination & cleaning self/arranging clothes: goes to toilet room, cleans self, arranges clothes without help (Intermittent accidents) Transfer: moves in & out of bed or chair with help Continence: has occasional 'accidents' Feeding: feeds self except getting help in cutting meat/buttering bread Total Score: 0 Information obtained from: informant (custodial staff) Using telephone: needs assistance Traveling: dependent Shopping: dependent Preparing meals: dependent Housework: dependent Taking medicine: dependent Managing money: dependent PHQ-9 Over the last 2 weeks, how often have you been bothered by any of the following problems? 1. Little interest or pleasure in doing things: not at all 2. Feeling down, depressed, or hopeless: not at all 3. Trouble falling or staying asleep, or sleeping too much: not at all 4. Feeling tired or having little energy: not at all 5. Poor appetite or overeating: not at all 6. Feeling bad about yourself - or that you are a failure or have let yourself or your family down: not at all 7. Trouble concentrating on things, such as reading the newspaper or watching television: not at all 8. Moving or speaking so slowly that other people could have noticed. Or the opposite - being so fidgety or restless that you have been moving around a lot more than usual: not at all 9. Thoughts that you would be better off or of hurting yourself in some way: not at all Total score: 0 Depression Screening Interpretation: Negative Depression Screening Done: Yes Source: Developed by Drs. Tung Zavala, Yamilka Posadas, Doroteo Myers and colleagues, with an educational dagoberto from [employer]. Review of Systems Const Details: Limited response, only able to answer simple questions-short answers-senior living staff assisted with questions/insert Denies headache(s) Eyes Denies loss of vision ENT Denies vertigo, Denies dizziness, Denies headache(s), Reports nasal congestion, Reports nasal discharge and Denies sore throat Card Denies chest pain, Denies leg edema and Denies lightheadedness Resp Denies cough, Denies hemoptysis and Denies wheezing GI Denies abdominal pain, Denies melena, Denies constipation, Denies diarrhea and Denies vomiting Denies urinary frequency, Denies dysuria and Denies urinary urgency Musc Denies arthralgias, Denies joint swelling, Denies numbness and Denies tingling Neuro Denies behavioral changes, Denies vertigo, Denies dizziness, Denies headache(s), Denies loss of vision, Denies memory loss, Denies numbness and Denies tingling Psych Denies anxiety, Denies behavioral changes, Denies depression, Denies memory loss and Denies panic attacks Trip/Lymph Denies easy bleeding and Denies easy bruising Aller/Immun Denies wheezing Physical Exam Exam Exam: IPPE/AWV: Balance Romberg -unable to complete this Tandem walk unable to complete. Walk and Turn unable to complete Rise from sit to stand unable to complete Vision Corrective lens yes Vision screen pass Hearing Whisper test pass . Urinary incont. Yes EKG Not clinically necessary. Vital Signs: Last Vital Signs Temp 98.7 F 05/26/25 14:51 Pulse 60 05/26/25 14:51 Resp 18 05/26/25 14:51 BP 122/70 05/26/25 14:51 Pulse Ox 97 05/26/25 14:51 Oxygen Delivery Method Room Air 05/26/25 14:51 BMI result Body Mass Index 38.8 Assessment & Plan Assessment & Plan (1) Medicare annual wellness visit, subsequent: Code(s): Z00.00 - Encounter for general adult medical examination without abnormal findings Plan: Patient is up-to-date on all recommended routine screenings and vaccinations for her age. Patient was given MOLST form to complete at home. No recent labs to review. Labs ordered for the patient to complete as soon as possible. (2) Elevated LFTs: Code(s): R79.89 - Other specified abnormal findings of blood chemistry Plan: The patient had a slightly elevated AST on 03/31/2024. An abdominal ultrasound was completed on 04/14/2024 Abdominal ultrasound showed an increase in hepatic parenchymal heterogeneity and echogenicity could be associated with hepatocellular disease/hepatic steatosis and severely limits visualization. No gallbladder wall thickening, although evaluation of the gallbladder was limited due to suboptimal distention and bowel gas. Common bile duct is dilated measuring 1.3 cm in diameter. Atrophic right kidney Today the patient denies abdominal pain. No recent blood work. CMP ordered to further re-evaluate (3) Morbid obesity: Code(s): E66.01 - Morbid (severe) obesity due to excess calories Plan: Encouraged healthy diet and routine exercise. (4) CVA (cerebral vascular accident): Comment: April 2022 There is bibasal ganglia lacunar infarct slightly greater on the right side. Mild cerebral volume loss with chronic small vessel ischemic changes. Code(s): I63.9 - Cerebral infarction, unspecified Qualifiers: CVA mechanism: unspecified Qualified Code(s): I63.9 - Cerebral infarction, unspecified Plan: Continue on tight blood pressure, sugar, and cholesterol control. (5) Cognitive and behavioral changes: Comment: ? dementia Code(s): R41.89 - Other symptoms and signs involving cognitive functions and awareness; R46.89 - Other symptoms and signs involving appearance and behavior Plan: Patient was following with Neurology but was discharged for primary care management. (6) Impulse control disorder: Comment: Dr. linder Code(s): F63.9 - Impulse disorder, unspecified Plan: Continue fluoxetine 80 mg daily (7) Urge incontinence: Code(s): N39.41 - Urge incontinence Plan: Continue on Myrbetriq. Follow up with Urology as scheduled (8) Tubular adenoma of colon: Comment: May 2021 Code(s): D12.6 - Benign neoplasm of colon, unspecified Plan: Repeat colonoscopy due in 2025. (9) GERD (gastroesophageal reflux disease): Code(s): K21.9 - Gastro-esophageal reflux disease without esophagitis Qualifiers: Esophagitis presence: without esophagitis Qualified Code(s): K21.9 - Gastro-esophageal reflux disease without esophagitis Plan: Avoid trigger foods such as citrus, tomato products, soda, caffeine, spicy foods and other foods that may be irritating to your stomach. Avoid laying flat 3-4 hours after eating and elevate the head of the bed 30 degrees to prevent acid from moving into the esophagus. Continue on omeprazole (10) Rhinosinusitis: Code(s): J32.9 - Chronic sinusitis, unspecified Plan: Patient was noted to have erythematous and boggy turbinates along with purulent drainage in both nasal passage. Augmentin 875-125 mg b.i.d. x7 days ordered Orders: Orders Comprehensive Broad Top. Panel Fast 05/26/25 Z00.00 - Encounter for general adult medical examination without abnormal findings UA CC w/rflx Micro + Cult 05/26/25 Z00.00 - Encounter for general adult medical examination without abnormal findings Complete Blood Count Auto Diff 05/26/25 Z00.00 - Encounter for general adult medical examination without abnormal findings Lipid Panel 05/26/25 Z00.00 - Encounter for general adult medical examination without abnormal findings TSH reflex Free T4 05/26/25 Z00.00 - Encounter for general adult medical examination without abnormal findings Vitamin D 25-OH Total 05/26/25 Z00.00 - Encounter for general adult medical examination without abnormal findings Medications: New amoxicillin-pot clavulanate 875-125 mg 1 tab PO BID 14 tabs 0RF 7 days J32.9 - Chronic sinusitis, unspecified Quality Reporting (2019) Depression/Bipolar (159/160/161/177) PHQ-9: Total score: 0 Coding Level of Care Code Medicare Subsequent (G0439) Diagnoses Medicare annual wellness visit, subsequent Z00.00 Elevated LFTs R79.89 Morbid obesity E66.01 Cerebrovascular accident (CVA), unspecified mechanism I63.9 CVA mechanism: unspecified Cognitive and behavioral changes R41.89; R46.89 Impulse control disorder F63.9 Urge incontinence N39.41 Tubular adenoma of colon D12.6 Gastroesophageal reflux disease without esophagitis K21.9 Esophagitis presence: without esophagitis Rhinosinusitis J32.9 CPT Codes Advance Care Planning - Time spent: 1-15 minutes, not on file ([id number]) Time Spent (min) 38 Advance Care Planning Advance Care Planning discussion: Exists, not on file Forms completed: Health Care Proxy (On file) and MOLST (For him given to patient and senior living staff) Time spent: 1-15 minutes, not on file Actual minutes spent: 6
[2025-05-26 15:10] VITALS: BMI 38.8
--- OUTSIDE RECORDS SUMMARY | 2025-05-26 19:04 | XMS_ITS | Encounter Summary ---
Author Organization [facility] Address [address] [place] [address] Phone Care Team Providers Care [employer] Combination Teacher Name Role Phone Unavailable Primary Care Provider Unavailabl e Encounter Details Date Type Department Care Team (Late st Contact Info) Description 07/08/2018 Ancillary Orders [facility] [address] [place] [address] Tashi Granados, DO [address] [place] [address] Social History Tobacco Use Types Packs/Day Years Used Date Smoking Tobacco: Never Assessed Comments Unknown Sex and Gender Information Value Date Recorded Sex Assigned at Not on file Legal Sex Female 10:11 AM EST Gender Identity Not on file Sexual Orientation Not on file documented as of this encounter Plan of Treatment Not on file documented as of this encounter Visit Diagnoses Not on filedocumented in this encounter Additional Source Comments The information contained in this document represents components of the legal health record. It is not the complete legal health record.[facility]
--- OUTSIDE RECORDS SUMMARY | 2025-05-26 19:04 | XMS_ITS | Clinical Summary ---
Author Organization [facility] Address [address] [place] [id number] Phone Care Team Providers Care Bulldozer Mechanic Name Role Phone Unavailable Primary Care Provider Unavailabl e Social History Tobacco Use Types Packs/Day Years Used Date Smoking Tobacco: Never Assessed Education Answer Date Recorded Are you interested in more education? Not on miguel e 12/27/2022 Are you concerned about learning? Not on file 12/27/2022 No 12/27/2022 No 12/27/2022 Digital Access Answer Date Recorded No 01/28/2023 No 01/28/2023 No 01/28/2023 Reliable internet access at home? Not on file 01/28/2023 Device with a working camera? Not on file Comments Unknown Sex and Gender Information Value Date Recorded Sex Assigned at Not on file Legal Sex Female 10:11 AM EST Gender Identity Not on file Sexual Orientation Not on file Plan of Treatment Not on file Medical Devices Not on file Insurance MEDICARE PART A & B Member Subscriber Plan / Payer (Ef fective 1984-Present) Name:Nikki Stewart Member ID:[id number] Relation to Subscriber:Self Name:Nikki Stewart Subscriber ID:[id number] Payer ID:[id number] Group ID:Not on file Type:Medicare Address: [facility] [employer] [facility] [address] [place] [phone] [facility] MEDICARE PART A & B [facility] MEDICARE PART A & B [place] [facility] PART A & [facility] [place] [facility] [place] [phone] [place] [address] MEDICARE PART A & [place] [facility] [place] [phone] MEDICARE PART A & [place] B Member Subscriber Plan / Payer ( fective 1984-Present) Name:Nikki Stewart Member ID:[id number] Relation to Subscriber:Self Name:SheryljasonNikki yao Subscriber ID:[id number] Payer ID:[id number] Group ID:Not on file Type:Medicare Address: [facility] [employer] [facility] [address] [place] [phone] [facility] Additional Source Comments The information contained in this document represents components of the legal health record. It is not the complete legal health record.[facility]
--- OUTSIDE RECORDS SUMMARY | 2025-05-26 19:04 | XMS_ITS | Encounter Summary ---
Author Organization [facility] Address [address] [place] [phone] Phone Care Team Providers Care Campus Recruiting Intern Name Role Phone Unavailable Primary Care Provider Unavailabl e Encounter Details Date Type Department Care Team (Late st Contact Info) Description 07/08/2018 Ancillary Orders [facility] [address] [place] [address] Bravo Newman MD [address] [place] [address] [email or web address] Social History Tobacco Use Types Packs/Day Years [...] It is not the complete legal health record.[facility]
--- OUTSIDE RECORDS SUMMARY | 2025-05-26 19:04 | XMS_ITS | Clinical Summary ---
Author Organization [facility] Address [address] [place] [address] Phone Care Team Providers Care Fire Tower Keeper Name Role Phone Angela Godinez MD Primary Care Provider [phone] Allergies No known active allergies Medications benztropine [...] Medicaid [place] Care Teams Fire Tower Keeper Relationship Specialty Start Date End Date Angela Godinez MD [address] [place], [place] PCP - General 09/11/20
--- OUTSIDE RECORDS SUMMARY | 2025-05-26 19:04 | XMS_ITS | Encounter Summary ---
Author Organization [facility] Address [address] [facility] [address] [place] [phone] Phone Care Team Providers Care Senior Hadoop Developer Name Role Phone Unavailable Primary Care Provider Unavailabl e Encounter Details Date Type Department Care Team (Late st Contact Info) Description 07/08/2018 Ancillary Orders [facility] [address] [place] [address] Tashi Granados DO [address] [place] [address] Bradycardia Social History Tobacco Use Types Packs/Day Years Used Date Smoking Tobacco: Never Assessed Comments Unknown Sex and Gender Information Value Date Recorded Sex Assigned at Not on file Legal Sex Female 10:11 AM EST Gender Identity Not on file Sexual Orientation Not on file documented as of this encounter Plan of Treatment Not on file documented as of this encounter Results * Holter Monitor 24 Hours (07/08/2018 12:09 PM EST) Anatomical Region Laterality Modality Heart Other Narrative 07/08/2018 5:22 PM EST 24-hour monitor: Baseline rhythm is sinus with a minimum heart rate of 29 maximum 92 average 44 bpm. Longest pause is 2.16 seconds. Occasional PVCs present. Increased frequency atrial ectopy, with about 3000 isolated PACs and brief runs of atrial tachycardia, longest duration 6 beats. There were no symptoms reported. Longest pause occurred during hours of sleep. Impression: Abnormal 24-hour monitor. Increased frequency atrial ectopy with brief runs of atrial tachycardia. Sinus bradycardia, average heart rate 44 bpm, longest pause 2.16 seconds, consistent with sinus node disease. No symptoms reported. Procedure Note Bravo Newman MD - 07/08/2018 24-hour monitor: Baseline rhythm is sinus with a minimum heart rate of 29maximum 92 average 44 bpm. Longest pause is 2.16 seconds. OccasionalPVCs present. Increased frequency atrial ectopy, with about 3000 isolatedPACs and brief runs of atrial tachycardia, longest duration 6 beats.There were no symptoms reported. Longest pause occurred during hours ofsleep. Impression: Abnormal 24-hour monitor. Increased frequency atrial ectopywith brief runs of atrial tachycardia. Sinus bradycardia, average heartrate 44 bpm, longest pause 2.16 seconds, consistent with sinus nodedisease. No symptoms reported. Tashi Granados DO [facility] ORDERABLE S Final Result documented in this encounter Visit Diagnoses Diagnosis Bradycardia Other specified cardiac dysrhythmias Bradycardia Other specified cardiac dysrhythmias documented in this encounter Additional Source Comments The information contained in this document represents components of the legal health record. It is not the complete legal health record.[facility]
--- OUTSIDE RECORDS SUMMARY | 2025-05-26 19:04 | XMS_ITS | Encounter Summary ---
Author Organization [facility] Address [address] [facility] [address] [place] [phone] Phone Care Team Providers Care Supervisor Belt And Link Assembly Name Role Phone Unavailable Primary Care Provider Unavailabl e Encounter Details Date Type Department Care Team (Late st Contact Info) Description 01/01/2019 Ancillary Orders [facility] [address] [place] [address] Tashi Granados DO [address] [place] [address] Bradycardia Social History Tobacco Use Types Packs/Day [...] encounter Results * Holter Monitor 24 Hours (01/01/2019 12:26 PM EDT) Anatomical Region Laterality Modality Heart Other Narrative 01/01/2019 12:45 PM EDT 24-hour monitor: Baseline rhythm is sinus with a minimum heart rate of 33, maximum 99, average 50 bpm. There is a 4.25-second pause at 1:43 AM, presumably during hours of sleep and most likely a sinus node recovery time after an episode of atrial tachycardia. There is a minor increase in frequency of PVCs, about 500 during the 24 hours. There is a moderate increase in the frequency of atrial ectopy, almost 18,000 atrial ectopic beats in the 24 hours, mainly isolated PACs, with occasional atrial couplets and runs of atrial tachycardia. There is bradycardia during sleep, and episodes of junctional escape at about 40 bpm presumably during hours of sleep. There is no diary returned. There are no patient event markers. Abnormal 24-hour monitor. Increased frequency atrial ectopy and runs of atrial tachycardia, none rapid, and bradycardia during sleep. There is a prolonged sinus node recovery time, 4.25 seconds, at 1:43 AM, presumably during sleep. Results of the monitor were communicated with Dr. Granados on January 01, 2019, at 12:45 PM, and read back occurred. Procedure Note Bravo Newman MD - 01/01/2019 24-hour monitor: Baseline rhythm is sinus with a minimum heart rate of 33,maximum 99, average 50 bpm. There is a 4.25-second pause at 1:43 AM,presumably during hours of sleep and most likely a sinus node recoverytime after an episode of atrial tachycardia. There is a minor increase infrequency of PVCs, about 500 during the 24 hours. There is a moderateincrease in the frequency of atrial ectopy, almost 18,000 atrial ectopicbeats in the 24 hours, mainly isolated PACs, with occasional atrialcouplets and runs of atrial tachycardia. There is bradycardia duringsleep, and episodes of junctional escape at about 40 bpm presumably duringhours of sleep. There is no diary returned. There are no patient eventmarkers. Abnormal 24-hour monitor. Increased frequency atrial ectopy and runs ofatrial tachycardia, none rapid, and bradycardia during sleep. There is aprolonged sinus node recovery time, 4.25 seconds, at 1:43 AM, presumablyduring sleep. Results of the monitor were communicated with Dr. Granados on December, at 12:45 PM, and read back occurred. Tashi Granados DO [facility] ORDERABLE S Final Result documented in this encounter Visit Diagnoses Diagnosis Bradycardia Other specified cardiac dysrhythmias Bradycardia Other specified cardiac dysrhythmias documented in this encounter Additional Source Comments The information contained in this document represents components of the legal health record. It is not the complete legal health record.[facility]
== END 2025-05-26 15:57 | disposition home or self-care (01) ==
LOC: HO.HMCH 14:46
PROVIDERS: PCP Internal Medicine
DX: Z00.00 Encounter for general adult medical examination without abnormal findings (principal); I63.9 Cerebral infarction, unspecified; E66.01 Morbid (severe) obesity due to excess calories; Z68.38 Body mass index [BMI] 38.0-38.9, adult; R79.89 Other specified abnormal findings of blood chemistry; R41.89 Other symptoms and signs involving cognitive functions and awareness; R46.89 Other symptoms and signs involving appearance and behavior; F63.9 Impulse disorder, unspecified; N39.41 Urge incontinence; D12.6 Benign neoplasm of colon, unspecified; K21.9 Gastro-esophageal reflux disease without esophagitis; J32.9 Chronic sinusitis, unspecified

== ENCOUNTER 2025-06-09 11:32 | Outpatient (AMB) | payer MEDICARE, MEDICAID, SELFPAY ==
[2025-06-09 11:34] VITALS: BP 128/80; PULSE 64; TEMP 36.1; O2SAT 98; BMI 39.0
--- NOTE | 2025-06-09 11:34 | MHC.PC.OV ---
Vital Signs 06/09/25 11:34 Height 5 ft 6 in Weight 241 lb 13.553 oz BMI 39.0 BP 128/80 Blood Pressure Location Lt brachial Position Sitting Pulse 64 Pulse Source Pulse Oximeter Temp 97.0 F Temp Source Temporal Artery Scan Pulse Oximetry (%) 98 Oxygen Delivery Method Room Air Intake Visit Reasons: b/l leg swelling Accompanied by: [facility] staff member Allergies No Known Allergies (No Known Allergies*) Allergy (Verified 06/09/25 11:46) Tobacco use date assessed: 06/09/25 Last assessed Fall Risk: 06/09/25 Dental Screening Dental Screen Date: 06/09/25 Did you have a dental visit in the last 12 months?: Yes Did you have a dental problem in the last 6 months where you did not have access to dental care?: No Was dental information given to patient?: Patient has dentist HPI HPI Comments History of Present Illness Details The patient is a 69-year-old female presenting with swelling of the right ankle and blister formation. The swelling was noted to be more pronounced than usual, with the right ankle being more affected than the left. The blister on the right ankle was observed alongside the swelling, and it was noted to be more swollen yesterday compared to today. The patient reported pain in the ankle last night, but no pain was noted upon examination today. [facility], [facility] Medical History Rigidity Medicare annual wellness visit, subsequent COVID-19 virus infection Intellectual delay TSH elevation Rash Screening for osteoporosis COVID-19 vaccine series completed Incontinence Increased frequency of urination Preop exam for internal medicine Retinal detachment of left eye due to tear of retina Fibroids Amblyopia of left eye GERD (gastroesophageal reflux disease) Obesity (BMI 35.0-39.9 without comorbidity) Impulse control disorder Cholelithiasis Anxiety Seizure disorder Breast mass, right Surgical History Hx of colonoscopy History of cataract surgery History of pacemaker S/P breast biopsy, right Family History Father Cancer Mother CAD (coronary artery disease) Sister In good health Brother In good health Social History Household Members Other:: [facility] Housing: Other Housing Other:: [facility] Alcohol intake: never Patient Tobacco Use Status: Never used Tobacco e-Cigarette/Vaping Use: Never Used Second Hand Smoke Exposure: No Advance Directives Date on File: 05/04/21 service: No Current occupational status: disabled Cognitive needs: Yes Hearing needs: No Vision needs: Yes Questionnaire PHQ-9 Over the last 2 weeks, how often have you been bothered by any of the following problems? 1. Little interest or pleasure in doing things: not at all 2. Feeling down, depressed, or hopeless: not at all 3. Trouble falling or staying asleep, or sleeping too much: not at all 4. Feeling tired or having little energy: not at all 5. Poor appetite or overeating: not at all 6. Feeling bad about yourself - or that you are a failure or have let yourself or your family down: not at all 7. Trouble concentrating on things, such as reading the newspaper or watching television: not at all 8. Moving or speaking so slowly that other people could have noticed. Or the opposite - being so fidgety or restless that you have been moving around a lot more than usual: not at all 9. Thoughts that you would be better off or of hurting yourself in some way: not at all Total score: 0 Depression Screening Interpretation: Negative Depression Screening Done: Yes Source: Developed by Drs. Tung Zavala, Yamilka Posadas, Doroteo Myers and colleagues, with an educational dagoberto from [employer]. Thrive Questionnaire Date Thrive assessed: 06/09/25 I am a: Parent/Caregiver What is your living situation today?: I have a steady place to live Within the past 12 months, did the food you bought not last and you didn't have the money to get more?: Never true Within the past 12 months, did you worry whether your food would run out before you got money to buy more?: Never true Do you have trouble paying for medicines?: No Do you have trouble getting transportation to medical appointments?: No Do you have trouble paying your heating and electricity bill?: No Do you have trouble taking care of your child, family member or friend?: No Do you have trouble with day-to-day activities such as bathing, preparing meals, shopping, managing finances, etc.?: No Are you currently unemployed and looking for a job?: No THRIVE Score: 0 AUDIT C Alcohol Use Questionnaire (AUDIT-C) 1. How often do you have a drink containing alcohol?: Never 3. How often do you have six or more drinks on one occasion?: Never Total Score: 0 MARK-7 AMB Questionnaire MARK-7 Date MARK - 7 assessed: 06/09/25 Feeling nervous, anxious, or on edge: 0 = Not at all Not being able to stop or control worryin = Not at all Worrying too much about different things: 0 = Not at all Trouble relaxin = Not at all Being so restless that it is hard to sit still: 0 = Not at all Becoming easily annoyed or irritable: 0 = Not at all Feeling afraid as if something awful might happen: 0 = Not at all Total MARK-7 score (0-4 normal; 5-9 mild; 10-14 moderate; 15-21 severe): 0 Source: Developed by Drs. Tung Zavala, Yamilka Posadas, Doroteo Myers and colleagues, with an educational dagoberto from [employer]. Review of Systems Const Details: Positives besides what was mentioned in HPI are in BOLD Constitutional: No Weight Change, No Fever, No Chills, No Night Sweats, No Fatigue, No Malaise ENT/Mouth: No Hearing Changes, No Ear Pain, No Nasal Congestion, No Sinus Pain, No Hoarseness, No sore throat, No Rhinorrhea, No Swallowing Difficulty Eyes: No Eye Pain, No Swelling, No Redness, No Foreign Body, No Discharge, No Vision Changes Cardiovascular: No Chest Pain, No SOB, No PND, No Dyspnea on Exertion, No Orthopnea, No Claudication, No Edema, No Palpitations Respiratory: No Cough, No Sputum, No Wheezing, No Smoke Exposure, No Dyspnea Gastrointestinal: No Nausea, No Vomiting, No Diarrhea, No Constipation, No Pain, No Heartburn, No Anorexia, No Dysphagia, No Hematochezia, No Melena, No Flatulence, No Jaundice Genitourinary: No Dysmenorrhea, No DUB, No Dyspareunia, No Dysuria, No Urinary Frequency, No Hematuria, No Urinary Incontinence, No Urgency, No Flank Pain, No Urinary Flow Changes, No Hesitancy Musculoskeletal: No Arthralgias, No Myalgias, No Joint Swelling, No Joint Stiffness, No Back Pain, No Neck Pain, No Injury History Skin: No Skin Lesions, No Pruritis, No Hair Changes, No Breast/Skin Changes, No Nipple Discharge Neuro: No Weakness, No Numbness, No Paresthesias, No Loss of Consciousness, No Syncope, No Dizziness, No Headache, No Coordination Changes, No Recent Falls Psych: No Anxiety/Panic, No Depression, No Insomnia, No Personality Changes, No Delusions, No Rumination, No SI/HI/AH/VH, No Social Issues, No Memory Changes, No Violence/Abuse Hx., No Eating Concerns Heme/Lymph: No Bruising, No Bleeding, No Transfusions History, No Lymphadenopathy Endocrine: No Polyuria, No Polydipsia, No Temperature Intolerance Physical exam (Primary Care) Vital Signs: Last Vital Signs Temp 97.0 F 06/09/25 11:34 Pulse 64 06/09/25 11:34 BP 128/80 06/09/25 11:34 Pulse Ox 98 06/09/25 11:34 Oxygen Delivery Method Room Air 06/09/25 11:34 BMI result Body Mass Index 39.0 Tobacco/Smoking Status: Tobacco use Status Tobacco use date assessed 06/09/25 06/09/25 11:49 Patient Tobacco Use Status Never used Tobacco 06/09/25 11:38 e-Cigarette/Vaping Use Never Used 06/09/25 11:38 PHQ-9: PHQ-9 Score PHQ-9: Total score 0 06/09/25 11:49 Depression Screening Interpretation: Negative Thrive Assessment: Date of Thrive Assessment Date Thrive assessed 06/09/25 06/09/25 11:49 Const Other: Pertinent findings are in BOLD GENERAL APPEARANCE NAD, activity normal for age, well developed/ well nourished, no cyanosis, pallor, or diaphoresis. EYES lids/conjunctiva normal. EARS/NOSE/THROAT Mucous membranes moist, nares normal, lips/teeth normal uvula midline without oral pharyngeal erythema, exudate or swelling TMs normal bilaterally. No lymphangitis/lymphedema. HEAD/NECK normocephalic atraumatic, no facial trauma, neck is supple. RESPIRATORY respiratory effort normal, speaks in full sentences, no tripod position, no accessory muscle use. Lungs clear to auscultation without rhonchi, wheezes, rales CARDIAC Regular rate and rhythm, no edema. ABDOMINAL Soft, ND/NT. No evidence of fluid wave. No pulsatile masses on exam, rebound tenderness, Mckeon sign or pain over Mcburney's point. MUSCLES/EXTREMITIES No abnormal range of motion, BLLE. R ankle blister. SKIN Warm, pink and dry. No rashes, dermatoses, petechiae or lesions. NEUROLOGICAL Speech is clear and appropriate. Normal level of consciousness. Gait and coordination are normal. 5/5 strength in all extremities. PSYCH Normal mood and affect. Judgement/competence is appropriate Coding Level of Care Code Est Pt Level 3 (39941) Diagnoses Swollen ankles M25.471; M25.472 Assessment & Plan Assessment & Plan (1) Swollen ankles: Code(s): M25.471 - Effusion, right ankle; M25.472 - Effusion, left ankle Category: Medical Plan: - Plan to obtain x-rays of the foot to rule out any fractures. - Referral to podiatry for further evaluation and management. - Initiate a small dose of diuretic therapy with Lasix every other day to reduce swelling. - Compression stocking. - Bacitracin refilled. Plan I discussed with the patient the plan to obtain x-rays of the foot to rule out fractures and the referral to podiatry for further evaluation. We also talked about starting a small dose of Lasix every other day to help reduce the swelling. The use of compression socks was considered to manage the swelling and blister formation. Orders: Orders XR ankle RT 2V Today M25.471 - Effusion, right ankle, M25.472 - Effusion, left ankle Referrals Podiatry Referral M25.471 - Effusion, right ankle, M25.472 - Effusion, left ankle Medications: New [Compression stocking] As directed 5 ea 8RF furosemide (Lasix) 20 mg PO Q OTHER DAY 60 tabs 0RF [Briefs] As directed 5 ea 11RF bacitracin 1 appl topical Q8H 14 grams 3RF
== END 2025-06-09 12:14 | disposition home or self-care (01) ==
LOC: HO.HMCH 11:33
PROVIDERS: PCP Internal Medicine; Visit Provider Internal Medicine
DX: M25.471 Effusion, right ankle (principal); M25.472 Effusion, left ankle

== ENCOUNTER 2025-06-09 11:32 | Outpatient (REF) | payer MEDICARE, MEDICAID, SELFPAY ==
--- NOTE | ~2025-06-09 | XR_ITS ---
EXAMINATION: XR ANKLE, RIGHT CLINICAL INFORMATION: M25.471 - Effusion, right ankle COMPARISON: None available. TECHNIQUE: AP, lateral, and mortise views of the right ankle. FINDINGS: There is normal bone mineralization. There is no fracture, dislocation, or suspicious bone lesion. The ankle mortise is intact. The talar dome is normal. Mild degenerative changes in the ankle joint. Mild to moderate degenerative changes in the subtalar joints. The calcaneus is intact. There are small dorsal and plantar calcaneal spurs. There is no evidence of ankle joint effusion. Soft tissues demonstrate diffuse subcutaneous edema. XR/XR ankle RT 2V IMPRESSION: 1. No acute bony abnormalities of the right ankle. 2. No evidence of ankle joint effusion. 3. Diffuse subcutaneous soft tissue edema. Electronically signed by: Gaurav Dalton MD 06/09/2025 02:02 PM EDT
== END 2025-06-09 11:33 | disposition home or self-care (01) ==
LOC: HO.XRAY 11:32
PROVIDERS: PCP Internal Medicine; Visit Provider Internal Medicine
DX: M25.471 Effusion, right ankle (principal); M25.472 Effusion, left ankle; S90.521D Blister (nonthermal), right ankle, subsequent encounter; X58.XXXD Exposure to other specified factors, subsequent encounter
CPT/HCPCS: 73600; 96127; 99212

== ENCOUNTER → 2025-06-09 12:41 | Outpatient (BNV) | payer MEDICARE, MEDICAID, SELFPAY | PROVIDERS: PCP Internal Medicine; Visit Provider Radiology Diagnostic Radiology | DX: R60.0 Localized edema (principal) | CPT/HCPCS: 73600 ==

== ENCOUNTER 2025-06-16 09:30 | Outpatient (AMB) | payer MEDICARE, MEDICAID, SELFPAY ==
--- NOTE | 2025-06-16 09:32 | A.OFFVIS_ITS ---
Intake Visit Reasons: 6M follow up/ PVR Intake Note: Patient is present for 6M/PVR Urology Medication:MIRABEGRON,VITAMIN B6 Antibiotic Allergy:NONE Blood Thinner:ASPIRIN TODAY'S PVR:0ML'S Assistant Health Educator Required: No Allergies No Known Allergies (No Known Allergies*) Allergy (Verified 06/16/25 09:34) HPI Comments Details: Nikki Menjivar is a 69 year old female patient of Dr. Godinez who lives in a [facility] and is accompanied by one of the care attendants/supervisor furnace process that helps take care of her daily. She has a past medical history of intellectual delay, incontinence, fibroids, amblyobia of left eye, GERD, impulse control disorder, anxiety, and seizure disorder. The patient has a history of developmental delay as well as dementia.?She presents to the office today for follow-up of her lower urinary tract symptoms/urinary incontinence. In discussion with the patient and [facility] member they deny patient to have had any bothersome urinary issues or concerns since her last office visit here. She reports compliance with 25 mg of Myrbetriq daily. In office urinalysis results were reviewed. PVR 0 mL. Previous workup has included retroperitoneal ultrasound 12/23 noting bilateral kidneys with no nephrolithiasis, lesions, and or hydronephrosis. The bladder is well distended and normal. Pre void bladder volume is approximately 150 mL. Postvoid bladder volume is approximately 30 mL. 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 She does report having episodes of urge incontinence however describes these episodes as infrequent. She discusses her upcoming plans for her birthday to each [employer] food. She also discusses going to her adult day program. She otherwise offers no other issues or concerns at this time. [facility] Medical History Rigidity Medicare annual wellness visit, subsequent COVID-19 virus infection Intellectual delay TSH elevation Rash Screening for osteoporosis COVID-19 vaccine series completed Incontinence Increased frequency of urination Preop exam for internal medicine Retinal detachment of left eye due to tear of retina Fibroids Amblyopia of left eye GERD (gastroesophageal reflux disease) Obesity (BMI 35.0-39.9 without comorbidity) Impulse control disorder Cholelithiasis Anxiety Seizure disorder Breast mass, right Surgical History Hx of colonoscopy History of cataract surgery History of pacemaker S/P breast biopsy, right Family History Father Cancer Mother CAD (coronary artery disease) Sister In good health Brother In good health Social History Household Members Other:: [facility] Housing: Other Housing Other:: Longterm Alcohol intake: never Patient Tobacco Use Status: Never used Tobacco e-Cigarette/Vaping Use: Never Used Second Hand Smoke Exposure: No Advance Directives Date on File: 05/04/21 service: No Current occupational status: disabled Cognitive needs: Yes Hearing needs: No Vision needs: Yes Review of Systems Const Unobtainable due to mental condition Physical Exam Const General: cooperative, comfortable, no acute distress, well developed, alert and awake Nutritional Appearance: overweight Orientation/consciousness: oriented to person Limitations: wheelchair HEENT Head: Yes normal to inspection, Yes normocephalic and Yes atraumatic Neck Neck: Yes normal visual inspection and Yes trachea midline Chest Chest palpation & inspection: normal inspection of the chest GI Inspection: Yes normal to inspection General: Yes no CVA tenderness Back/Spine/Pelvis Back: no CVA tenderness Neuro General: oriented to person Psych Appearance: well kempt Speech and movement: Slowed speech present (Psych) and Slowed movement present (Neuro) Attitude: cooperative Insight: Limited insight present (Psych) Judgement: Limited judgement present (Psych) Office Procedures Post Void Residual Post Residual Void Post Void Residual (PVR): 0 [id number] Void Residual by ultrasound Assessment & Plan Assessment & Plan (1) Incomplete bladder emptying: Code(s): R33.9 - Retention of urine, unspecified Category: Medical (2) Urge incontinence: Code(s): N39.41 - Urge incontinence Category: Medical Plan In office urinalysis results reviewed with the patient and staff member today; as noted above. PVR 0 mL. Continue Myrbetriq as discussed and prescribed; refill provided Continue with prompt voiding, scheduled toileting, and time voiding. Educated, encouraged, and stressed the importance of drinking plenty of water daily. Follow-up in 6 months with PVR; or sooner with any issues, concerns, and or questions. Patient Instructions: The patient had an opportunity to ask questions regarding the treatment plan. All questions were answered. Physical exam, labs, and imaging were discussed and reviewed in detail. As well as risks, benefits, and discussion of treatment choices. No major barriers to understanding were identified. The patient expressed understanding and agreement with the above treatment plan. The patient was made aware they should contact our office by phone for worsening of their current condition, the appearance of new symptoms, or with any questions or concerns. Compliance is encouraged with any medications and follow up testing that is ordered. It is a privilege to be allowed the opportunity to participate in? your urological care.? Again, if you have any questions or concerns If you have any questions or concerns please do not hesitate to contact me. The office is [phone]. This note is constructed using voice recognition software. While every effort has been made to ensure accuracy continuity reader errors may have been included. Yours sincerely, TRAV Clayton Coding Level of Care Code Est Pt Level 3 (35638) Complex EM visit Add On G2211 Diagnoses Incomplete bladder emptying R33.9 Urge incontinence N39.41 CPT Codes Post Residual Void - PVR CPT Code: 95468-[place]ctk Void Residual by ultrasound ([id number])
--- OUTSIDE RECORDS SUMMARY | 2025-06-16 10:53 | XMS_ITS | Encounter Summary ---
Author Organization [facility] Address [address] [facility] [address] [place] [phone] Phone Care Team Providers Care Machine Wood Sander Name Role Phone Unavailable Primary Care Provider Unavailabl e Encounter Details Date Type Department Care Team (Late st Contact Info) Description 07/08/2018 Ancillary Orders [facility] [address] [place] [address] Tashi Granados DO [address] [place] [address] Bradycardia Social History Tobacco Use Types Packs/Day [...] It is not the complete legal health record.[facility]
--- OUTSIDE RECORDS SUMMARY | 2025-06-16 10:53 | XMS_ITS | Encounter Summary ---
Author Organization [facility] Address [address] [facility] [address] [place] [address] Phone Care Team Providers Care Lettuce Cutter Name Role Phone Unavailable Primary Care Provider Unavailabl e Encounter Details Date Type Department Care Team (Late st Contact Info) Description 01/01/2019 Ancillary Orders [facility] [address] [place] [address] Tashi Granados DO [address] [place] [address] Bradycardia Social History Tobacco Use Types Packs/Day [...] It is not the complete legal health record.[facility]
--- OUTSIDE RECORDS SUMMARY | 2025-06-16 10:53 | XMS_ITS | Encounter Summary ---
Author Organization [facility] Address [address] [place] [address] Phone Care Team Providers Care Fisher Gill Net Name Role Phone Unavailable Primary Care Provider Unavailabl e Encounter Details Date Type Department Care Team (Late st Contact Info) Description 07/08/2018 Ancillary Orders [facility] [address] [place] [address] Tashi Granados, DO [address] [place] [address] Social History Tobacco Use Types Packs/Day Years [...] It is not the complete legal health record.[facility]
--- OUTSIDE RECORDS SUMMARY | 2025-06-16 10:53 | XMS_ITS | Clinical Summary ---
Author Organization [facility] Address [address] [place] [address] Phone Care Team Providers Care Kids Activities Coach Name Role Phone Unavailable Primary Care Provider [...] Payer (Ef fective 1984-Present) Name:Nikki Stewart Member ID:[id number] Relation to Subscriber:Self Name:Nikki Stewart Subscriber ID:[id number] Payer ID:[id number] Group ID:Not on file Type:Medicare Address: [facility] [facility] [address] [facility] [place] [address] [facility] MEDICARE PART A & B [facility] MEDICARE PART A & [place] & [facility] [place] [phone] [place] [address] MEDICARE PART A & [place] [address] MEDICARE PART A & [place] MED[place] A & B [facility] Additional Source Comments The information contained in this document represents components of the legal health record. It is not the complete legal health record.[facility]
--- OUTSIDE RECORDS SUMMARY | 2025-06-16 10:53 | XMS_ITS | Encounter Summary ---
Author Organization [facility] Address [address] [place] [address] Phone Care Team Providers Care Retail Account Executive Name Role Phone Unavailable Primary Care Provider Unavailabl e Encounter Details Date Type Department Care Team (Late st Contact Info) Description 07/08/2018 Ancillary Orders [facility] [address] [place] [address] Bravo Newman MD [address] [place] [address] [email or web address] Social History Tobacco Use Types Packs/Day Years [...] It is not the complete legal health record.[facility]
--- OUTSIDE RECORDS SUMMARY | 2025-06-16 10:53 | XMS_ITS | Clinical Summary ---
Author Organization [address] Address [address] [place] [address] [place] [address] Phone Care Team Providers Care Consumer Sales Representative Name Role Phone Angela Godinez MD Primary Care Provider [phone] Surgical History Surgery Date Site/Laterality Comments OTHER SURGICAL HISTORY PROCEDURE: ---- OTHER ----; COMMENT: ?deep brain stimulation BREAST BIOPSY PROCEDURE: BX BREAST; PERC NEEDLE CORE W/IMAG GUID; COMMENT: lt-neg BREAST BIOPSY 06/22/2020 Right PROCEDURE: [place] BX BREAST W/DEVICE 1ST LESION ULTRASOUND GUID [...] Upcoming Encounters Date Type Department Care Team (Late st Contact Info) Description 10/13/2025 2:00 PM EST Office Visit Obstetrics and Gynecology - [address] [address] Maranda Paulino, JEROME [address] [place] [address] Health Maintenance Due Date Last Done Comments Colorectal Cancer Screening: Colonoscopy 1954 Zoster Vaccines (1 of 2) 2004 Falls Risk Assessment 08/10/2022 Hepatitis C Screening 08/10/2022 Medicare Annual Wellness Visit 08/10/2022 Osteoporosis Screening (Bone Density Screening) 08/10/2022 Social Influencers of Health Screening 08/10/2022 Depression Screening 09/01/2024 COVID-19 Vaccine ( season) 2025 10/20/2020, 09/29/2020 Influenza Vaccine (#1) 2025 2, 06/29/2021, 06/15/2019, Additional history exists Breast Cancer [...] for breast cancer from Last 3 Months or Most Recently Relevant to Health Maintenance Results * MG Mammo Digital Screening w Jovani bilat (02/16/2025 10:47 AM EDT) Anatomical Region Laterality Modality Breast Bilateral Mammography 02/16/2025 2:07 PM EDT Impressions 02/16/2025 2:19 PM EDT No mammographic evidence for malignancy. BI-RADS CATEGORY: 1 - NEGATIVE RECOMMENDATION: Screening bilateral mammogram is recommended in 1 year. Mammo Location: [facility], [address] [place] [address], [address], . -------- FINAL REPORT -------- Dictated By: Brea Hernandez Dictated Date: 02/16/2025 14:07 ET Assigned Physician: Brea Hernandez Reviewed and Electronically Signed By: Brea Hernandez Signed Date: 02/16/2025 14:19 ET Workstation ID: [id number] Transcribed By: Self Edit Transcribed Date: 02/16/2025 [...] is recommended in 1 year. Mammo Location: [facility], [address] [place] [address], [address], . -------- FINAL REPORT -------- Dictated By: Brea Hernandez Dictated Date: 02/16/2025 14:07 ET Assigned Physician: Brea Hernandez Reviewed and Electronically Signed By: Brea Hernandez Signed Date: 02/16/2025 14:19 ET Workstation ID: [id number] Transcribed By: Self Edit Transcribed Date: 02/16/2025 14:07 ET Angela Godinez MD IMG BI PROCEDURES Final Result from Last 3 Months or Most Recently Relevant to Health Maintenance Insurance MEDICARE MEDICAID [place] Q[place] Care Teams Consumer Sales Representative Relationship Specialty Start Date End Date Angela Godinez MD [address] [place] [address] [address] [facility] [place] [address] PCP - General 09/01/10
== END 2025-06-16 10:06 | disposition home or self-care (01) ==
LOC: HO.HUSH 09:31
PROVIDERS: PCP Internal Medicine; Visit Provider Nurse Practitioner Family
DX: R33.9 Retention of urine, unspecified (principal); N39.41 Urge incontinence; Z13.9 Encounter for screening, unspecified
CPT/HCPCS: 99213; G2211

== ENCOUNTER → 2025-06-16 09:30 | Outpatient (BNVA) | payer MEDICARE, MEDICAID, SELFPAY | PROVIDERS: PCP Internal Medicine; Visit Provider Nurse Practitioner Family | DX: N39.41 Urge incontinence (principal); R33.9 Retention of urine, unspecified | CPT/HCPCS: 51798; 81003; 99212 ==

== ENCOUNTER 2025-06-20 11:05 | Outpatient (AMB) | payer MEDICARE, MEDICAID, SELFPAY ==
--- NOTE | 2025-06-20 11:11 | MHC.PC.OV ---
Vital Signs 06/20/25 11:12 Height 5 ft 6 in Weight 238 lb 8.642 oz BMI 38.5 BP 120/76 Blood Pressure Location Lt brachial Position Sitting Pulse 71 Pulse Source Pulse Oximeter Temp 97.1 F Temp Source Temporal Artery Scan Pulse Oximetry (%) 96 Oxygen Delivery Method Room Air Intake Visit Reasons: requesting letter to go back to program Intake Note: Patient is here to follow up on requesting letter to go back to program. Deputy Director Required: No Supervisor Paper Products: Present Accompanied by: Staff Allergies No Known Allergies (No Known Allergies*) Allergy (Verified 06/20/25 11:12) Medication List - Last Reconciled 06/20/25 by Ras More MD acetaminophen (Tylenol) 650 mg (2 x 325 mg) PO Q6H aspirin (Adult Low Dose Aspirin) 81 mg PO DAILY aspirin (Ecotrin Low Strength) 81 mg PO DAILY bacitracin 1 appl topical Q8H [Briefs As directed] brimonidine 0.2% 1 drp ophthalmic (eye) BID calcium carbonate-vitamin D3 600 mg-10 mcg (400 unit) 1 tab PO BID compress.stocking,knee,reg,lrg As directed 15-20 mm HG [Compression stocking As directed] diaper,brief,adult,disposable (Briefs, Adult-Extra Large) As directed docusate sodium (Colace) 100 mg PO DAILY docusate sodium 100 mg PO QAM 90 days dorzolamide-timolol 22.3-6.8 mg/mL (Cosopt) 1 drp ophthalmic (eye) BID fluoxetine (Prozac) 80 mg (2 x 40 mg) PO DAILY furosemide (Lasix) 20 mg PO Q OTHER DAY guaifenesin 200 mg (5 mL) PO Q4H PRN hospital bed (bed,hospital) As directed ibuprofen 200 mg PO Q4-6H PRN latanoprost 0.005% 1 drp ophthalmic (eye) BEDTIME memantine 10 mg PO BID midodrine 15 mg PO DAILY mirabegron ER (Myrbetriq) 25 mg PO DAILY 90 days omeprazole 20 mg PO DAILY pyridoxine (vitamin B6) 50 mg PO QAM risperidone 1 mg PO QAM [Transport wheelchair As directed] [Walker with seat As directed] Tobacco use date assessed: 06/20/25 Fall risk assessment: 2 + Falls in past year Last assessed Fall Risk: 06/20/25 Dental Screening Dental Screen Date: 06/09/25 HPI HPI Comments History of Present Illness Details The patient is a 69-year-old female presenting to request a document for her to go back to daycare program. The patient had a fall recently while at day care. Based on the day care evaluation the patient would benefit from a wheelchair, rolling shower chair and a raised toilet seat. Her mobility has been significantly reduced, making it difficult for her to move to the dining table or bathroom without assistance. The staff have reported challenges in assisting her with standing and moving, as she often struggles to maintain her balance and frequently sits back down. The patient also experiences obesity, which is contributing to her mobility issues. Her weight has been a significant factor in her difficulty with movement and daily activities. Additionally, the patient has urinary incontinence, which is exacerbated by fluid intake, particularly in the evenings. The staff have noted that she often experiences incontinence after consuming fluids such as water or tea. The patient is currently on furosemide (Lasix), which is being administered during the day. There is no medical indication for fluid restriction, but it was suggested to limit fluid intake after 6:00 PM to manage incontinence. [facility] Medical History Rigidity Medicare annual wellness visit, subsequent COVID-19 virus infection Intellectual delay TSH elevation Rash Screening for osteoporosis COVID-19 vaccine series completed Incontinence Increased frequency of urination Preop exam for internal medicine Retinal detachment of left eye due to tear of retina Fibroids Amblyopia of left eye GERD (gastroesophageal reflux disease) Obesity (BMI 35.0-39.9 without comorbidity) Impulse control disorder Cholelithiasis Anxiety Seizure disorder Breast mass, right Surgical History Hx of colonoscopy History of cataract surgery History of pacemaker S/P breast biopsy, right Family History Father Cancer Mother CAD (coronary artery disease) Sister In good health Brother In good health Social History Household Members Other:: [facility] Housing: Other Housing Other:: [facility] Alcohol intake: never Patient Tobacco Use Status: Never used Tobacco e-Cigarette/Vaping Use: Never Used Second Hand Smoke Exposure: No Advance Directives Date on File: 05/04/21 service: No Current occupational status: disabled Cognitive needs: Yes Hearing needs: No Vision needs: Yes Questionnaire Thrive Questionnaire Date Thrive assessed: 06/09/25 MARK-7 AMB Questionnaire MARK-7 Date MARK - 7 assessed: 06/09/25 Source: Developed by Drs. Tung Zavala, Yamilka Posadas, Doroteo Myers and colleagues, with an educational dagoberto from for; to (do) Centers. Physical exam (Primary Care) Vital Signs: Last Vital Signs Temp 97.1 F 06/20/25 11:12 Pulse 71 06/20/25 11:12 BP 120/76 06/20/25 11:12 Pulse Ox 96 06/20/25 11:12 Oxygen Delivery Method Room Air 06/20/25 11:12 BMI result Body Mass Index 38.5 Tobacco/Smoking Status: Tobacco use Status Tobacco use date assessed 06/20/25 06/20/25 11:24 Patient Tobacco Use Status Never used Tobacco 06/20/25 11:24 e-Cigarette/Vaping Use Never Used 06/20/25 11:24 Thrive Assessment: Date of Thrive Assessment Date Thrive assessed 06/09/25 06/20/25 11:24 Coding Level of Care Code Est Pt Level 4 (23951) Diagnoses Status post fall Z91.81 Time Spent (min) 30 Assessment & Plan Assessment & Plan (1) Status post fall: Code(s): Z91.81 - History of falling Category: Medical Plan: Patient was seen in clinic today after a recent fall. She did not have head trauma. Her day care program recommended a wheelchair, rolling shower chair, and higher toilet seat. Ordered. The patient is having incidents of urinary incontinence. Okay to restrict patient's fluid intake to less than 500cc after 6 pm. She is having trouble with increased weight. Okay to have the patient on low carb diet for now. A letter will be faxed to the patient's day care program. Plan During the visit, we discussed the patient's impaired mobility and the need for a wheelchair to assist her at the day program and at home. We also talked about the importance of a low-carbohydrate diet to help with weight management and improve her mobility. Additionally, we addressed her urinary incontinence and suggested limiting fluid intake after 6:00 PM to manage this issue. Medications: New [rolling shower chair] As directed 1 ea 0RF [Wheelchair] As directed 1 ea 0RF [raised toilet seat] As directed 1 ea 0RF
[2025-06-20 11:12] VITALS: BP 120/76; PULSE 71; TEMP 36.2; O2SAT 96; BMI 38.5
--- OUTSIDE RECORDS SUMMARY | 2025-06-20 13:27 | XMS_ITS | Encounter Summary ---
Author Organization [facility] Address [address] [place] [address] Phone Care Team Providers Care Tank Wagon Driver Name Role Phone Unavailable Primary Care Provider Unavailabl e Encounter Details Date Type Department Care Team (Late st Contact Info) Description 07/08/2018 Ancillary Orders [facility] [address] [place] [address] Bravo Newman MD [address] [place] [address] [email or web address] Social History Tobacco Use Types Packs/Day Years [...] It is not the complete legal health record.[facility]
--- OUTSIDE RECORDS SUMMARY | 2025-06-20 13:27 | XMS_ITS | Clinical Summary ---
Author Organization [address] Address [address] [place] [address] [place] [address] Phone Care Team Providers Care Pilot Fuel Engineer Name Role Phone Angela Godinez MD Primary Care Provider [phone] Surgical History Surgery Date Site/Laterality Comments OTHER SURGICAL HISTORY PROCEDURE: ---- OTHER ----; COMMENT: ?deep brain stimulation BREAST BIOPSY PROCEDURE: BX BREAST; PERC NEEDLE CORE W/IMAG GUID; COMMENT: lt-neg BREAST BIOPSY 06/22/2020 Right PROCEDURE: IN BX BREAST W/DEVICE 1ST LESION ULTRASOUND GUID [...] EST Office Visit Obstetrics and Gynecology - [address] [address] Maranda Paulino, JEROME [address] [place] [address] Health Maintenance Due Date Last Done Comments [...] is recommended in 1 year. Mammo Location: [facility], [address] [place] [address], [address], . -------- FINAL REPORT -------- Dictated By: Brea Hernandez Dictated Date: 02/16/2025 14:07 ET Assigned Physician: Brea Hernandez Reviewed and Electronically Signed By: Brea Hernandez Signed Date: 02/16/2025 14:19 ET Workstation ID: [id number] Transcribed By: Self Edit Transcribed Date: 02/16/2025 [...] is recommended in 1 year. Mammo Location: [facility], [address] [place] [address], [address], . -------- FINAL REPORT -------- Dictated By: Brea Hernandez Dictated Date: 02/16/2025 14:07 ET Assigned Physician: Brea Hernandez Reviewed and Electronically Signed By: Brea Hernandez Signed Date: 02/16/2025 14:19 ET Workstation ID: [id number] Transcribed By: Self Edit Transcribed Date: 02/16/2025 14:07 ET Angela Godinez MD IMG BI PROCEDURES Final Result from Last 3 Months or Most Recently Relevant to Health Maintenance Insurance MEDICARE MEDICAID [place] QMB Care Teams Pilot Fuel Engineer Relationship Specialty Start Date End Date Angela Godinez MD [address] [place] [address] [address] [facility] [place] [address] PCP - General 09/01/10
--- OUTSIDE RECORDS SUMMARY | 2025-06-20 13:27 | XMS_ITS | Encounter Summary ---
Author Organization [facility] Address [address] [place] [address] Phone Care Team Providers Care Grant Specialist Name Role Phone Unavailable Primary Care Provider Unavailabl e Encounter Details Date Type Department Care Team (Late st Contact Info) Description 07/08/2018 Ancillary Orders [facility] [address] [place] [address] Tashi Granados DO [address] [place] [address] Bradycardia Social History Tobacco Use Types Packs/Day [...] It is not the complete legal health record.[facility]
--- OUTSIDE RECORDS SUMMARY | 2025-06-20 13:27 | XMS_ITS | Encounter Summary ---
Author Organization [facility] Address [address] [place] [address] Phone Care Team Providers Care Brazer Controlled Atmospheric Furnace Name Role Phone Unavailable Primary Care Provider Unavailabl e Encounter Details Date Type Department Care Team (Late st Contact Info) Description 07/08/2018 Ancillary Orders [facility] [address] [place] [address] Tashi Granados, DO [address] [place] [address] Social History Tobacco Use Types Packs/Day Years [...] It is not the complete legal health record.[facility]
--- OUTSIDE RECORDS SUMMARY | 2025-06-20 13:27 | XMS_ITS | Clinical Summary ---
Author Organization [facility] Address [address] [place] [address] Phone Care Team Providers Care Personal Shopper Name Role Phone Angela Godinez MD Primary Care Provider [phone] Allergies No known active allergies Medications benztropine [...] [place] Care Teams Personal Shopper Relationship Specialty Start Date End Date Angela Godinez MD [address] [place], [place] PCP - General 09/11/20
--- OUTSIDE RECORDS SUMMARY | 2025-06-20 13:28 | XMS_ITS | Encounter Summary ---
Author Organization [facility] Address [address] [place] [address] Phone Care Team Providers Care Piercer Operator Name Role Phone Unavailable Primary Care Provider Unavailabl e Encounter Details Date Type Department Care Team (Late st Contact Info) Description 01/01/2019 Ancillary Orders [facility] [address] [place] [address] Tashi Granados DO [address] [place] [address] Bradycardia Social History Tobacco Use Types Packs/Day [...] It is not the complete legal health record.[facility]
--- OUTSIDE RECORDS SUMMARY | 2025-06-20 13:28 | XMS_ITS | Clinical Summary ---
Author Organization [facility] Address [address] [place] [address] Phone Care Team Providers Care Technical Support Internship Name Role Phone Unavailable Primary Care Provider [...] file Insurance MEDICARE PART A & B [facility] MEDICARE PART A & B [facility] MEDICARE PART A & [place] [facility] [facility] [place] [id number] [place] [address] MEDICARE PART A & [place] [id number] MEDICARE PART A & [place] MEDICARE PART A & B [facility] Additional Source Comments The information contained in this document represents components of the legal health record. It is not the complete legal health record.[facility]
== END 2025-06-20 11:47 | disposition home or self-care (01) ==
PROVIDERS: PCP Internal Medicine; Visit Provider Internal Medicine
DX: Z91.81 History of falling (principal)

== ENCOUNTER → 2025-06-20 11:05 | Outpatient (BNVA) | payer MEDICARE, MEDICAID, SELFPAY | PROVIDERS: PCP Internal Medicine; Visit Provider Internal Medicine | DX: K21.9 Gastro-esophageal reflux disease without esophagitis (principal); R26.89 Other abnormalities of gait and mobility; E66.9 Obesity, unspecified; R32 Unspecified urinary incontinence; Z79.899 Other long term (current) drug therapy; Z91.81 History of falling; Z68.38 Body mass index [BMI] 38.0-38.9, adult | CPT/HCPCS: 99212 ==

== ENCOUNTER 2025-07-18 11:22 | Outpatient (AMB) | payer MEDICARE, MEDICAID, SELFPAY ==
[2025-07-18 11:51] VITALS: BP 140/80; PULSE 60; TEMP 36.8; O2SAT 93
--- NOTE | 2025-07-18 11:51 | A.OFFPC_ITS ---
Vital Signs 07/18/25 11:51 Height 5 ft 6 in BP 140/80 H Blood Pressure Location Lt brachial Position Sitting Pulse 60 Pulse Source Pulse Oximeter Temp 98.3 F Temp Source Temporal Artery Scan Pulse Oximetry (%) 93 Oxygen Delivery Method Room Air Intake Visit Reasons: discuss letter for wheelchair Intake Note: Patient is here to follow up on requesting letter to go back to program. Forestry Fire Aide Required: No Literature Teacher: Present Accompanied by: Staff Allergies No Known Allergies (No Known Allergies*) Allergy (Verified 07/18/25 11:52) Tobacco use date assessed: 06/20/25 Fall risk assessment: 2 + Falls in past year Last assessed Fall Risk: 06/20/25 Dental Screening Dental Screen Date: 06/09/25 HPI HPI Comments History of Present Illness Details The patient is a 69-year-old female, with intellectual delay, history of stroke, gait instability, cognitive impairement, accompanied by her caregiver, presenting for evaluation and documentation related to her declining functional status. The patient has experienced a significant decline in mobility, with her caregiver noting that she almost fell today and that her legs become wobbly. It has become difficult for her to ambulate with a walker, she is losing her balance completely, and has a history of falls, prompting the caregiver to use a wheelchair for her safety and ease of transport. Due to safety concerns, the patient is currently not attending her day program, which requires a letter from her primary care provider detailing her need for a full-time wheelchair with a seatbelt for safe transport. The patient also requires a prescription change from diapers to pull-ups, as well as a DNR form and a motor vehicle handicap placard application. [facility] Medical History Rigidity Medicare annual wellness visit, subsequent COVID-19 virus infection Intellectual delay TSH elevation Rash Screening for osteoporosis COVID-19 vaccine series completed Incontinence Increased frequency of urination Preop exam for internal medicine Retinal detachment of left eye due to tear of retina Fibroids Amblyopia of left eye GERD (gastroesophageal reflux disease) Obesity (BMI 35.0-39.9 without comorbidity) Impulse control disorder Cholelithiasis Anxiety Seizure disorder Breast mass, right Surgical History Hx of colonoscopy History of cataract surgery History of pacemaker S/P breast biopsy, right Family History Father Cancer Mother CAD (coronary artery disease) Sister In good health Brother In good health Social History Household Members Other:: PENITENTIARY Housing: Other Housing Other:: Usp Alcohol intake: never Patient Tobacco Use Status: Never used Tobacco e-Cigarette/Vaping Use: Never Used Second Hand Smoke Exposure: No Advance Directives Date on File: 05/04/21 service: No Current occupational status: disabled Cognitive needs: Yes Hearing needs: No Vision needs: Yes Questionnaire PHQ-9 Over the last 2 weeks, how often have you been bothered by any of the following problems? 1. Little interest or pleasure in doing things: several days 2. Feeling down, depressed, or hopeless: not at all 3. Trouble falling or staying asleep, or sleeping too much: not at all 4. Feeling tired or having little energy: not at all 5. Poor appetite or overeating: not at all 6. Feeling bad about yourself - or that you are a failure or have let yourself or your family down: not at all 7. Trouble concentrating on things, such as reading the newspaper or watching television: not at all 8. Moving or speaking so slowly that other people could have noticed. Or the opposite - being so fidgety or restless that you have been moving around a lot more than usual: not at all 9. Thoughts that you would be better off or of hurting yourself in some way: not at all Total score: 1 Depression Screening Interpretation: Negative Depression Screening Done: Yes Source: Developed by Drs. Tung Zavala, Yamilka Posadas, Doroteo Myers and colleagues, with an educational dagoberto from [employer]. Thrive Questionnaire Date Thrive assessed: 06/09/25 I am a: Parent/Caregiver What is your living situation today?: I have a steady place to live Within the past 12 months, did the food you bought not last and you didn't have the money to get more?: I choose not to answer this question Within the past 12 months, did you worry whether your food would run out before you got money to buy more?: I choose not to answer this question Do you have trouble paying for medicines?: I choose not to answer this question Do you have trouble getting transportation to medical appointments?: No Do you have trouble paying your heating and electricity bill?: No Do you have trouble taking care of your child, family member or friend?: No Do you have trouble with day-to-day activities such as bathing, preparing meals, shopping, managing finances, etc.?: No Are you currently unemployed and looking for a job?: No Are you interested in more education?: No Please select the resources that you would like help with: None Currently or been in a relationship where the following occur: I choose not to answer THRIVE Score: 0 AUDIT C Alcohol Use Questionnaire (AUDIT-C) 1. How often do you have a drink containing alcohol?: Never 3. How often do you have six or more drinks on one occasion?: Never Total Score: 0 MARK-7 AMB Questionnaire MARK-7 Date MARK - 7 assessed: 06/09/25 Feeling nervous, anxious, or on edge: 0 = Not at all Not being able to stop or control worryin = Not at all Worrying too much about different things: 0 = Not at all Trouble relaxin = Not at all Being so restless that it is hard to sit still: 0 = Not at all Becoming easily annoyed or irritable: 0 = Not at all Feeling afraid as if something awful might happen: 0 = Not at all Total MARK-7 score (0-4 normal; 5-9 mild; 10-14 moderate; 15-21 severe): 0 Source: Developed by Drs. Tung Zavala, Yamilka Posadas, Doroteo Myers and colleagues, with an educational dagoberto from [employer]. Review of Systems Const Details: As per HPI. Physical exam (Primary Care) Vital Signs: Last Vital Signs Temp 98.3 F 07/18/25 11:51 Pulse 60 07/18/25 11:51 BP 140/80 H 07/18/25 11:51 Pulse Ox 93 07/18/25 11:51 Oxygen Delivery Method Room Air 07/18/25 11:51 Tobacco/Smoking Status: Tobacco use Status Tobacco use date assessed 06/20/25 07/18/25 11:57 Patient Tobacco Use Status Never used Tobacco 07/18/25 11:57 e-Cigarette/Vaping Use Never Used 07/18/25 11:57 PHQ-9: PHQ-9 Score PHQ-9: Total score 1 07/18/25 11:57 Depression Screening Interpretation: Negative Thrive Assessment: Date of Thrive Assessment Date Thrive assessed 06/09/25 07/18/25 11:57 Currently or been in a relationship where the following occur: I choose not to answer Const Other: Pertinent findings are in BOLD GENERAL APPEARANCE cognitive delay, wheelchair bound, unstable gait. EYES lids/conjunctiva normal. EARS/NOSE/THROAT Mucous membranes moist, nares normal, lips/teeth normal uvula midline without oral pharyngeal erythema, exudate or swelling TMs normal bilaterally. No lymphangitis/lymphedema. HEAD/NECK normocephalic atraumatic, no facial trauma, neck is supple. RESPIRATORY respiratory effort normal, speaks in full sentences, no tripod position, no accessory muscle use. Lungs clear to auscultation without rhonchi, wheezes, rales CARDIAC Regular rate and rhythm, no edema. ABDOMINAL Soft, ND/NT. No evidence of fluid wave. No pulsatile masses on exam, rebound tenderness, Mckeon sign or pain over Mcburney's point. MUSCLES/EXTREMITIES No abnormal range of motion, no swelling. SKIN Warm, pink and dry. No rashes, dermatoses, petechiae or lesions. NEUROLOGICAL Speech is clear and appropriate. Normal level of consciousness. Gait and coordination are normal. 5/5 strength in all extremities. PSYCH Normal mood and affect. Judgement/competence is appropriate Coding Level of Care Code Est Pt Level 4 (56988) Diagnoses Cognitive impairment R41.89 Time Spent (min) 40 Assessment & Plan Assessment & Plan (1) Cognitive impairment: Code(s): R41.89 - Other symptoms and signs involving cognitive functions and awareness Category: Medical Plan: - The patient has significantly declined mobility, wobbly legs, loss of balance, and near-falls, making ambulation with a walker unsafe. - A letter will be provided to her day program stating the medical necessity for full-time wheelchair use to ensure safety and allow for appropriate van transport. - A new wheelchair with a seatbelt ordered. - A motor vehicle handicap placard application will be completed to facilitate safer transfers. Plan I spoke with the patient's caregiver and their supervisor grower regarding the patient's functional decline. It was reported that her mobility has worsened, with wobbly legs and a loss of balance, making it difficult for her to use a walker and increasing her risk of falls. We discussed that full-time wheelchair use is now necessary for her safety. I agreed to provide a letter for her day program, detailing the need for a full- time wheelchair equipped with a seatbelt to ensure safe transport and allow her to return to the program. I will also complete the application for a motor vehicle handicap placard. I will change her prescription from diapers to appropriately sized pull-ups. Time spent: 40 min. This includes time spent on filling paperwork, reviewing the patient's chart, documentation and clinical interview. Medications: New [Wheelchair with seatbelt] As directed 1 ea 0RF [Pull-up] As directed 30 ea 9RF
== END 2025-07-18 12:28 | disposition home or self-care (01) ==
LOC: HO.HMCH 11:22
PROVIDERS: PCP Internal Medicine; Visit Provider Internal Medicine
DX: R41.89 Other symptoms and signs involving cognitive functions and awareness (principal)

== ENCOUNTER → 2025-07-18 11:22 | Outpatient (BNVA) | payer MEDICARE, MEDICAID, SELFPAY | PROVIDERS: PCP Internal Medicine; Visit Provider Internal Medicine | DX: R41.89 Other symptoms and signs involving cognitive functions and awareness (principal) | CPT/HCPCS: 99212 ==

== ENCOUNTER 2025-08-08 13:18 | Outpatient (AMB) | payer MEDICARE, MEDICAID, SELFPAY ==
--- NOTE | 2025-08-08 13:29 | MHC.OFFVIS ---
Intake Visit Reasons: bilateral ankle pain Intake Note: Nikki is a 69 year old female who presents to the office as a new patient visit for bilateral ankle pain referred by Dr. More. X-rays completed on 06/09/25. Patient reports she is having pain on the lateral aspect of both of her ankles. She denies any previous treatments however she does take Tylenol. Allergies No Known Allergies (No Known Allergies*) Allergy (Verified 08/08/25 13:39) HPI Comments Details: The patient is a 69 year old female with a past medical history as seen below presenting with right ankle pain. She has been having constant pain for an unknown duration without a preceding fall or injury. She reports feeling pain primarily in her right ankle, specifically on the lateral aspect along the lateral malleolus. For pain management, she has used Tylenol and Motrin, which she reports are helpful. She notes associated swelling in her feet bilaterally. She ambulates at home but uses a wheelchair for transportation to appointments. Patient was accompanied by a ornamental ironworker helper. She denies any other pedal concerns. [facility] Medical History (Updated 08/08/25 @ 14:03 by Maxine Case DPM) Acquired valgus deformity of right ankle Avulsion fracture of lateral malleolus of right fibula Arthritis of right ankle Right ankle pain Rigidity Medicare annual wellness visit, subsequent COVID-19 virus infection Intellectual delay TSH elevation Rash Screening for osteoporosis COVID-19 vaccine series completed Incontinence Increased frequency of urination Preop exam for internal medicine Retinal detachment of left eye due to tear of retina Fibroids Amblyopia of left eye GERD (gastroesophageal reflux disease) Obesity (BMI 35.0-39.9 without comorbidity) Impulse control disorder Cholelithiasis Anxiety Seizure disorder Breast mass, right Surgical History Hx of colonoscopy History of cataract surgery History of pacemaker S/P breast biopsy, right Family History Father Cancer Mother CAD (coronary artery disease) Sister In good health Brother In good health Social History Household Members Other:: CUSTODIAL Housing: Other Housing Other:: Fpc Alcohol intake: never Patient Tobacco Use Status: Never used Tobacco e-Cigarette/Vaping Use: Never Used Second Hand Smoke Exposure: No Advance Directives Date on File: 05/04/21 service: No Current occupational status: disabled Cognitive needs: Yes Hearing needs: No Vision needs: Yes Review of Systems Const Details: - Musculoskeletal: Reports constant pain in the right ankle, localized to the lateral aspect. Denies pain in the left ankle or radiating up the leg. - Peripheral Vascular: Reports swelling in the feet. All systems reviewed & are unremarkable except as noted in HPI and below Physical Exam Extrem Other: Bilateral lower extremity focused physical exam: Derm: No open lesions abrasions or wounds noted. Skin supple and turgor within normal limits. Mild xerosis noted. No ecchymosis, erythema, or discoloration noted. No maceration or hyperkeratotic areas noted. No clinical signs of infection noted. Vascular: DP/PT pulses mildly palpable. Capillary refill time less than 3 seconds. Temperature gradient warm to warm. Pedal hair absent. Moderate edema noted to bilateral lower extremities. Neuro: Protective sensation is grossly intact. MSK: Pain on palpation to the lateral aspect of the right ankle in the area of the distal tip of the lateral malleolus. Mild pain along the course of the right ATFL. Mild pain with range of motion of the right ankle. No pain on palpation to the left ankle no pain with range of motion of the left ankle. No crepitus or fluctuance noted. Patient seen in a wheelchair. Results Reviewed Results Reviewed: Podiatry read of right ankle x-ray (06/09/2025): Decreased joint space noted to the ankle. Distal fibular tip avulsion fracture noted to be healing. Talar tilt to noted. Bone spurring noted to the plantar and posterior aspect of the calcaneus. Joint space narrowing noted to the subtalar joint. Right ankle x-ray (06/09/2025): FINDINGS: There is normal bone mineralization. There is no fracture, dislocation, or suspicious bone lesion. The ankle mortise is intact. The talar dome is normal. Mild degenerative changes in the ankle joint. Mild to moderate degenerative changes in the subtalar joints. The calcaneus is intact. There are small dorsal and plantar calcaneal spurs. There is no evidence of ankle joint effusion. Soft tissues demonstrate diffuse subcutaneous edema. IMPRESSION: 1. No acute bony abnormalities of the right ankle. 2. No evidence of ankle joint effusion. 3. Diffuse subcutaneous soft tissue edema. Assessment & Plan Assessment & Plan (1) Right ankle pain: Code(s): M25.571 - Pain in right ankle and joints of right foot Category: Medical (2) Arthritis of right ankle: Code(s): M19.071 - Primary osteoarthritis, right ankle and foot Category: Medical (3) Avulsion fracture of lateral malleolus of right fibula: Code(s): S82.61XA - Displaced fracture of lateral malleolus of right fibula, initial encounter for closed fracture Category: Medical (4) Acquired valgus deformity of right ankle: Code(s): M21.071 - Valgus deformity, not elsewhere classified, right ankle Category: Medical Plan Patient was informed and verbally consented to the use of an ambient scribe for clinic note documentation during this visit. I explained to the patient that her right ankle pain is caused by arthritis. I reviewed her recent X-ray findings, which confirmed arthritis and also showed an old, healing avulsion fracture at the distal tip of the lateral malleolus, the precise location of her pain. We discussed that arthritis management focuses on pain control. Since Tylenol and ibuprofen provide limited relief, I will prescribe Celebrex. To improve stability, she will be provided a lace-up ankle brace. I will also provide a prescription for orthopedic shoes. We agreed to defer an X-ray of the left ankle because it is asymptomatic. I advised the patient to return for a follow-up visit in 3 weeks to reassess her symptoms. - A prescription for Celebrex was sent to the pharmacy for arthritis pain management. - The patient was provided a lace-up ankle stabilizing brace to provide stability. - A prescription for orthopedic shoes and inserts was provided. RTC in 3 weeks. Medications: New celecoxib (Celebrex) 100 mg PO BID 60 caps 0RF M19.071 - Primary osteoarthritis, right ankle and foot, M21.071 - Valgus deformity, not elsewhere classified, right ankle, M25.571 - Pain in right ankle and joints of right foot, S82.61XA - Displaced fracture of lateral malleolus of right fibula, initial encounter for closed fracture [Orthopedic shoes and inserts] As directed 1 ea 0RF M19.071 - Primary osteoarthritis, right ankle and foot, M21.071 - Valgus deformity, not elsewhere classified, right ankle, M25.571 - Pain in right ankle and joints of right foot, S82.61XA - Displaced fracture of lateral malleolus of right fibula, initial encounter for closed fracture Coding Level of Care Code New Pt Level 4 (23353) Diagnoses Right ankle pain M25.571 Arthritis of right ankle M19.071 Avulsion fracture of lateral malleolus of right fibula S82.61XA Acquired valgus deformity of right ankle M21.071 Time Spent (min) 48
--- OUTSIDE RECORDS SUMMARY | 2025-08-08 22:00 | XMS_ITS | Clinical Summary ---
Author Organization [address] Address [address] [place] [address] [place] [address] Phone Care Team Providers Care Hog Sawyer Name Role Phone Angela Godinez MD Primary Care Provider Surgical History Surgery Date Site/Laterality Comments OTHER SURGICAL HISTORY PROCEDURE: ---- OTHER ----; COMMENT: ?deep brain stimulation BREAST BIOPSY PROCEDURE: BX BREAST; PERC NEEDLE CORE W/IMAG GUID; COMMENT: lt-neg BREAST BIOPSY 06/22/2020 Right PROCEDURE: [place] BX BREAST W/DEVICE 1ST LESION ULTRASOUND GUID [...] EST Office Visit Obstetrics and Gynecology - [address] [id number] Maranda Paulino, JER[address] [place] [address] Health Maintenance Due Date Last Done Comments [...] is recommended in 1 year. Mammo Location: [facility], [address] [place] [address], [address], . -------- FINAL REPORT -------- Dictated By: Brea Hernandez Dictated Date: 02/16/2025 14:07 ET Assigned Physician: Brea Hernandez Reviewed and Electronically Signed By: Brea Hernandez Signed Date: 02/16/2025 14:19 ET Workstation ID: [id number] Transcribed By: Self Edit Transcribed Date: 02/16/2025 [...] is recommended in 1 year. Mammo Location: [facility], [address] [place] [address], [id number], . -------- FINAL REPORT -------- Dictated By: Brea Hernandez Dictated Date: 02/16/2025 14:07 ET Assigned Physician: Brea Hernandez Reviewed and Electronically Signed By: Brea Hernandez Signed Date: 02/16/2025 14:19 ET Workstation ID: [id number] Transcribed By: Self Edit Transcribed Date: 02/16/2025 14:07 ET Angela Godinez MD IMG BI PROCEDURES Final Result from Last 3 Months or Most Recently Relevant to Health Maintenance Insurance MEDICARE [place]ICAID [place] [employer] Care Teams Hog Sawyer Relationship Specialty Start Date End Date Angela Godinez MD [address] [place] [address] [address] [facility] [place] [address] PCP - General 09/01/10
--- OUTSIDE RECORDS SUMMARY | 2025-08-08 22:00 | XMS_ITS | Encounter Summary ---
Author Organization [facility] Address [address] [place] [address] Phone Care Team Providers Care Gear Machinist Name Role Phone Unavailable Primary Care Provider Unavailabl e Encounter Details Date Type Department Care Team (Late st Contact Info) Description 07/08/2018 Ancillary Orders [facility] [address] [place] [address] Bravo Newman MD [address] [place] [address] [email or web address] Social History Tobacco Use Types Packs/Day Years [...] It is not the complete legal health record.[facility]
--- OUTSIDE RECORDS SUMMARY | 2025-08-08 22:00 | XMS_ITS | Encounter Summary ---
Author Organization [facility] Address [address] [place] [address] Phone Care Team Providers Care Stationary Engineer Name Role Phone Unavailable Primary Care Provider Unavailabl e Encounter Details Date Type Department Care Team (Late st Contact Info) Description 07/08/2018 Ancillary Orders [facility] [address] [place] [address] Tashi Granados, DO [address] [place] [address] Social History Tobacco Use Types Packs/Day Years [...] It is not the complete legal health record.[facility]
--- OUTSIDE RECORDS SUMMARY | 2025-08-08 22:00 | XMS_ITS | Encounter Summary ---
Author Organization [facility] Address [address] [place] [phone] Phone Care Team Providers Care Car Designer Name Role Phone Unavailable Primary Care Provider Unavailabl e Encounter Details Date Type Department Care Team (Late st Contact Info) Description 01/01/2019 Ancillary Orders [facility] [address] [place] [address] Tashi Granados DO [address] [place] [address] Bradycardia Social History Tobacco Use Types Packs/Day [...]
--- OUTSIDE RECORDS SUMMARY | 2025-08-08 22:00 | XMS_ITS | Clinical Summary ---
Author Organization [facility] Address [address] [place] [address] Phone Care Team Providers Care Addressograph Operator Name Role Phone Unavailable Primary Care [...] file Insurance MEDICARE PART A & B [facility] MEDICARE PART A & B [facility] MEDICARE PART A & [place] [facility] [place] [id number] [place] [id number] MEDICARE PART A [place] [address] MEDICARE PART A [place] B [facility] Additional Source Comments The information contained in this document represents components of the legal health record. It is not the complete legal health record.[facility]
--- OUTSIDE RECORDS SUMMARY | 2025-08-08 22:00 | XMS_ITS | Encounter Summary ---
Author Organization [facility] Address [address] [facility] [address] [place] [address] Phone Care Team Providers Care External Relations Manager Name Role Phone Unavailable Primary Care Provider Unavailabl e Encounter Details Date Type Department Care Team (Late st Contact Info) Description 07/08/2018 Ancillary Orders [facility] [address] [place] [address] Tashi Granados DO [address] [place] [address] Bradycardia Social History Tobacco Use Types Packs/Day [...] It is not the complete legal health record.[facility]
== END 2025-08-08 14:11 | disposition home or self-care (01) ==
LOC: HO.HPODS 13:20
PROVIDERS: PCP Internal Medicine; Visit Provider Student in an Organized Health Care Education/Training Program
DX: M25.571 Pain in right ankle and joints of right foot (principal); M19.071 Primary osteoarthritis, right ankle and foot; S82.61XA Displaced fracture of lateral malleolus of right fibula, initial encounter for closed fracture; M21.071 Valgus deformity, not elsewhere classified, right ankle
CPT/HCPCS: 99204

== ENCOUNTER → 2025-08-08 13:18 | Outpatient (BNVA) | payer MEDICARE, MEDICAID, SELFPAY | PROVIDERS: PCP Internal Medicine; Visit Provider Student in an Organized Health Care Education/Training Program | DX: S82.61XA Displaced fracture of lateral malleolus of right fibula, initial encounter for closed fracture (principal); M19.071 Primary osteoarthritis, right ankle and foot; M21.071 Valgus deformity, not elsewhere classified, right ankle; X58.XXXA Exposure to other specified factors, initial encounter; Y93.9 Activity, unspecified; Y92.9 Unspecified place or not applicable; Y99.9 Unspecified external cause status | CPT/HCPCS: 99202 ==

== ENCOUNTER 2025-08-30 10:59 | Outpatient (AMB) | payer MEDICARE, MEDICAID, SELFPAY ==
[2025-08-30 11:09] VITALS: BMI 38.4
--- NOTE | 2025-08-30 11:09 | A.OFFVIS_ITS ---
Vital Signs 08/30/25 11:09 Height 5 ft 6 in Weight 238 lb BMI 38.4 Intake Visit Reasons: right ankle arthritis and avulsion fx Intake Note: Nikki is a 70 year old female who presents today for a follow up on her acquired valgus deformity of the right ankle. At her last visit she was prescribed Celebrex and prescription for orthopedic shoes and inserts was provided to her. She was provided with a lace up ankle brace to provide stability. Patient program staff reports evrything is going well and there is no questions or concerns at this time. Allergies No Known Allergies (No Known Allergies*) Allergy (Verified 08/30/25 11:10) HPI Comments Details: The patient is a 70-year-old female presenting for a follow-up visit regarding a right ankle avulsion fracture and arthritis. Her [employer] reports that her ankle pain has been well-managed with an ankle brace and Celebrex, and they deny any pain at today's visit. An order was previously placed for orthopedic shoes and inserts to provide arch support. The necessary paperwork has been completed and sent, and the patient is awaiting a call within the next few weeks to schedule a foot scan for the custom fitting. They deny any new pedal injuries or concerns. [facility] Medical History (Updated 08/08/25 @ 14:03 by Maxine Case DPM) Acquired valgus deformity of right ankle Avulsion fracture of lateral malleolus of right fibula Arthritis of right ankle Right ankle pain Rigidity Medicare annual wellness visit, subsequent COVID-19 virus infection Intellectual delay TSH elevation Rash Screening for osteoporosis COVID-19 vaccine series completed Incontinence Increased frequency of urination Preop exam for internal medicine Retinal detachment of left eye due to tear of retina Fibroids Amblyopia of left eye GERD (gastroesophageal reflux disease) Obesity (BMI 35.0-39.9 without comorbidity) Impulse control disorder Cholelithiasis Anxiety Seizure disorder Breast mass, right Surgical History Hx of colonoscopy History of cataract surgery History of pacemaker S/P breast biopsy, right Family History Father Cancer Mother CAD (coronary artery disease) Sister In good health Brother In good health Social History Household Members Other:: [employer] Housing: Other Housing Other:: Jail Alcohol intake: never Patient Tobacco Use Status: Never used Tobacco e-Cigarette/Vaping Use: Never Used Second Hand Smoke Exposure: No Advance Directives Date on File: 05/04/21 service: No Current occupational status: disabled Cognitive needs: Yes Hearing needs: No Vision needs: Yes Review of Systems Const Details: - Musculoskeletal: Reports improvement in symptoms to the right ankle. All systems reviewed & are unremarkable except as noted in HPI and below Physical Exam Vital Signs: BMI result Body Mass Index 38.4 Extrem Other: Bilateral lower extremity focused physical exam: Derm: No open lesions abrasions or wounds noted. Skin supple and turgor within normal limits. Mild xerosis noted. No ecchymosis, erythema, or discoloration noted. No maceration or hyperkeratotic areas noted. No clinical signs of infection noted. Vascular: DP/PT pulses mildly palpable. Capillary refill time less than 3 seconds. Temperature gradient warm to warm. Pedal hair absent. Moderate edema noted to bilateral lower extremities. Neuro: Protective sensation is grossly intact. MSK: No Pain on palpation to the lateral aspect of the right ankle in the area of the distal tip of the lateral malleolus. No pain along the course of the right ATFL. No pain with range of motion of the right ankle. No pain on palpation to the left ankle no pain with range of motion of the left ankle. No crepitus or fluctuance noted. Patient seen in a wheelchair. Results Reviewed Results Reviewed: Podiatry read of right ankle x-ray (06/09/2025): Decreased joint space noted to the ankle. Distal fibular tip avulsion fracture noted to be healing. Talar tilt to noted. Bone spurring noted to the plantar and posterior aspect of the calcaneus. Joint space narrowing noted to the subtalar joint. Right ankle x-ray (06/09/2025): FINDINGS: There is normal bone mineralization. There is no fracture, dislocation, or suspicious bone lesion. The ankle mortise is intact. The talar dome is normal. Mild degenerative changes in the ankle joint. Mild to moderate degenerative changes in the subtalar joints. The calcaneus is intact. There are small dorsal and plantar calcaneal spurs. There is no evidence of ankle joint effusion. Soft tissues demonstrate diffuse subcutaneous edema. IMPRESSION: 1. No acute bony abnormalities of the right ankle. 2. No evidence of ankle joint effusion. 3. Diffuse subcutaneous soft tissue edema. Assessment & Plan Assessment & Plan (1) Right ankle pain: Code(s): M25.571 - Pain in right ankle and joints of right foot Category: Medical (2) Arthritis of right ankle: Code(s): M19.071 - Primary osteoarthritis, right ankle and foot Category: Medical (3) Avulsion fracture of lateral malleolus of right fibula: Code(s): S82.61XA - Displaced fracture of lateral malleolus of right fibula, initial encounter for closed fracture Category: Medical (4) Acquired valgus deformity of right ankle: Code(s): M21.071 - Valgus deformity, not elsewhere classified, right ankle Category: Medical Plan Patient was informed and verbally consented to the use of an ambient scribe for clinic note documentation during this visit. I advised the patient and her corporate sales trainer that her condition appears to be improving well with the use of the ankle brace and Celebrex. I explained that t he order for her custom orthopedic shoes and inserts has been processed, and she should anticipate a call in about two weeks to schedule a fitting, which will involve a scan of her feet to assess her arches for proper support. I instructed her to continue her current treatment plan and to return for a follow-up visit in two months. I also provided return precautions, advising them to call the office if she experiences any new pain before her next appointment. - The patient will continue to use the ankle brace. - The patient will continue taking Celebrex PRN for pain management. - Advised patient to wear supportive shoe gear. - The patient was advised to call if any new pain or adverse reaction occurs. RTC in 2 months. Coding Level of Care Code Est Pt Level 4 (47806) Diagnoses Right ankle pain M25.571 Arthritis of right ankle M19.071 Avulsion fracture of lateral malleolus of right fibula S82.61XA Acquired valgus deformity of right ankle M21.071 Time Spent (min) 30
--- OUTSIDE RECORDS SUMMARY | 2025-08-30 14:58 | XMS_ITS | Encounter Summary ---
Author Organization [facility] Address [address] [place] [phone] Phone Care Team Providers Care Waiter/Waitress Club Name Role Phone Unavailable Primary Care Provider Unavailabl e Encounter Details Date Type Department Care Team (Late st Contact Info) Description 07/08/2018 Ancillary Orders [facility] [address] [place] [address] Tashi Granados DO [address] [place] [address] Bradycardia Social History Tobacco Use Types Packs/Day [...] It is not the complete legal health record.[facility]
--- OUTSIDE RECORDS SUMMARY | 2025-08-30 14:58 | XMS_ITS | Encounter Summary ---
Author Organization [facility] Address [address] [place] [address] Phone Care Team Providers Care Industrial Electrical Technician Name Role Phone Unavailable Primary Care Provider Unavailabl e Encounter Details Date Type Department Care Team (Late st Contact Info) Description 01/01/2019 Ancillary Orders [facility] [address] [place] [address] Tashi Granados DO [address] [place] [address] Bradycardia Social History Tobacco Use Types Packs/Day [...] It is not the complete legal health record.[facility]
--- OUTSIDE RECORDS SUMMARY | 2025-08-30 14:58 | XMS_ITS | Clinical Summary ---
Author Organization [facility] Address [address] [place] [address] Phone Care Team Providers Care Manual Writer Name Role Phone Unavailable Primary Care Provider [...] file Insurance MEDICARE PART A & B [facility] MEDICARE PART A & B [facility] MEDICARE PART A & B [place] [facility] [place] [facility] [place] [phone] [place] [address] MEDICARE PART A & [place] [facility] [place] [address] MED[place]ARE PART A & B [place] & B [facility] Additional Source Comments The information contained in this document represents components of the legal health record. It is not the complete legal health record.[facility]
--- OUTSIDE RECORDS SUMMARY | 2025-08-30 14:58 | XMS_ITS | Encounter Summary ---
Author Organization [facility] Address [address] [place] [address] Phone Care Team Providers Care Dairy Equipment Mechanic Name Role Phone Unavailable Primary Care Provider Unavailabl e Encounter Details Date Type Department Care Team (Late st Contact Info) Description 07/08/2018 Ancillary Orders [facility] [address] [place] [address] Tashi Granados, DO [address] [place] [address] Social History Tobacco Use Types Packs/Day Years [...] It is not the complete legal health record.[facility]
--- OUTSIDE RECORDS SUMMARY | 2025-08-30 14:58 | XMS_ITS | Clinical Summary ---
Author Organization [facility] Address [address] [place] [address] Phone Care Team Providers Care Care Director Name Role Phone Angela Godinez MD Primary Care Provider [phone] Allergies No known active allergies Medications benztropine [...] [place] Care Teams Care Director Relationship Specialty Start Date End Date Angela Godinez MD [address] [place], [place] PCP - General 09/11/20
--- OUTSIDE RECORDS SUMMARY | 2025-08-30 14:58 | XMS_ITS | Encounter Summary ---
Author Organization [facility] Address [address] [place] [address] Phone Care Team Providers Care Health Education Assistant Name Role Phone Unavailable Primary Care Provider Unavailabl e Encounter Details Date Type Department Care Team (Late st Contact Info) Description 07/08/2018 Ancillary Orders [facility] [address] [place] [address] Bravo Newman MD [address] [place] [address] [email or web address] Social History Tobacco Use Types Packs/Day Years [...] It is not the complete legal health record.[facility]
--- OUTSIDE RECORDS SUMMARY | 2025-08-30 14:58 | XMS_ITS | Clinical Summary ---
Author Organization [address] Address [address] [place] [address] [place] [address] Phone Care Team Providers Care Drupal Architect Name Role Phone Angela Godinez MD Primary Care Provider [phone] Surgical History Surgery Date Site/Laterality Comments OTHER SURGICAL HISTORY PROCEDURE: ---- OTHER ----; COMMENT: ?deep brain stimulation BREAST BIOPSY PROCEDURE: BX BREAST; PERC NEEDLE CORE W/IMAG GUID; COMMENT: lt-neg BREAST BIOPSY 06/22/2020 Right PROCEDURE: GA BX BREAST W/DEVICE 1ST LESION ULTRASOUND GUID [...] EST Office Visit Obstetrics and Gynecology - [address] [address] Maranda Paulino, [address] [place] [address] Health Maintenance Due Date Last Done Comments [...] is recommended in 1 year. Mammo Location: [facility], [address] [place] [address], [id number], . -------- FINAL REPORT -------- Dictated By: Brea Hernandez Dictated Date: 02/16/2025 14:07 ET Assigned Physician: Brea Hernandez Reviewed and Electronically Signed By: Brea Hernandez Signed Date: 02/16/2025 14:19 ET Workstation ID: [id number] Transcribed By: Self Edit Transcribed Date: 02/16/2025 [...] is recommended in 1 year. Mammo Location: [facility], [address] [place] [address], [id number], . -------- FINAL REPORT -------- Dictated By: Brea Hernandez Dictated Date: 02/16/2025 14:07 ET Assigned Physician: Brea Hernandez Reviewed and Electronically Signed By: Brea Hernandez Signed Date: 02/16/2025 14:19 ET Workstation ID: [id number] Transcribed By: Self Edit Transcribed Date: 02/16/2025 14:07 ET Angela Godinez MD IMG BI PROCEDURES Final Result from Last 3 Months or Most Recently Relevant to Health Maintenance Insurance MEDICARE [place]ICAID [place] [employer] Care Teams Drupal Architect Relationship Specialty Start Date End Date Angela Godinez MD [address] [place] [address] [address] [facility] [place] [address] PCP - General 09/01/10
== END 2025-08-30 11:27 | disposition home or self-care (01) ==
LOC: HO.HPODS 11:00
PROVIDERS: PCP Internal Medicine; Visit Provider Student in an Organized Health Care Education/Training Program
DX: M25.571 Pain in right ankle and joints of right foot (principal); M19.071 Primary osteoarthritis, right ankle and foot; S82.61XA Displaced fracture of lateral malleolus of right fibula, initial encounter for closed fracture; M21.071 Valgus deformity, not elsewhere classified, right ankle
CPT/HCPCS: 99214

== ENCOUNTER → 2025-08-30 10:59 | Outpatient (BNVA) | payer MEDICARE, MEDICAID, SELFPAY | PROVIDERS: PCP Internal Medicine; Visit Provider Student in an Organized Health Care Education/Training Program | DX: S82.61XA Displaced fracture of lateral malleolus of right fibula, initial encounter for closed fracture (principal); M19.071 Primary osteoarthritis, right ankle and foot; M21.071 Valgus deformity, not elsewhere classified, right ankle | CPT/HCPCS: 99212 ==